=== PATIENT | male | born 1960 | race Caucasian/White ===

== ENCOUNTER 2016-04-14 19:36 | Emergency (ER) | payer OTHER, MEDICAID ==
[2016-04-14 19:44] VITALS: TEMP 98.4
[2016-04-14 19:59] LABS: COLOR YELLOW; LEUKOCYTE ESTERASE,URINE NEGATIVE (NEGATIVE); NITRITE,URINE NEGATIVE (NEGATIVE)
--- NOTE | 2016-04-14 20:14 | EDPHY ---
H & P Time Seen by Provider: 04/14/16 19:37 HPI/ROS: HPI Left lower back pain. Concerned about kidneys. 55-year-old male by ambulance. Patient has been seen in our emergency department multiple times for various complaints of the years. He presents from the [facility] complaining of left lower back pain and concern about his kidneys. No history of trauma or fall. No bowel or bladder incontinence. No history of cancer. No fever. No numbness or weakness in his lower extremities. No other red flags. ROS: Constitutional: No fever, no chills. No weakness. Eyes: No discharge. No changes in vision. ENT: No sore throat. No nasal congestion or rhinorrhea. Respiratory: No cough. No shortness of breath. Cardiac: No chest pain, no palpitations. Gastrointestinal: No abdominal pain, no vomiting, no diarrhea. Genitourinary: No hematuria. No dysuria or increased frequency with urination. Musculoskeletal: As above. No neck pain. No myalgias or arthralgias. Skin: No rashes. Neurological: No headache. No focal weakness or altered sensation. Past medical history: COPD, hepatitis-C, PTSD, bipolar, history of heroin abuse. Social history: Homeless. Smoker. Substance abuse. Alcohol abuse. Physical Exam: General Appearance: Alert, no distress. This patient is responding to questions appropriately and in full sentences. This patient appears well- hydrated and well-nourished. Eyes: Pupils equal and round no pallor or injection. No lid edema, erythema or injection. Back exam: No midline thoracic, lumbar, sacral tenderness on palpation. He has vague left-sided sacroiliac tenderness on palpation. No soft tissue changes. Negative same side and straight size leg raise test. He is neurologically intact in all dermatomes of the bilateral lower extremities. He is vascularly intact in his bilateral lower extremities. Gastrointestinal: Abdomen is soft and nontender, no masses, bowel sounds normal. No focal tenderness at McBurney's point. No Rome sign. Neurological: Motor sensory function is grossly intact. Cranial nerves are normal. Gait is normal. Skin: Warm and dry, no rashes. Musculoskeletal: Neck is supple and nontender. Extremities are symmetrical. All joints range without pain or impingement. Psychiatric: No agitation. No depression. Database: EKG: Imaging: Procedures: Emergency department course: After my evaluation, the patient was medically cleared for discharge. Left lower back pain with no red flags. He has a normal creatinine from in December of 2015. Urinalysis was unremarkable. Follow-up and return to emergency department precautions discussed with him. All of his questions were answered. He was discharged in good condition. Differential Diagnosis: The differential diagnosis on this patient includes but is not limited to lumbar sacral strain. Urinary tract infection, pyelonephritis, nephrolithiasis , epidural compression syndrome, traumatic spinal injury, cauda equina syndrome unlikely. This represents a partial list of diagnoses considered. These considerations are based on history, physical exam, past history and reassessment Smoking Status: Current every day smoker Constitutional: Initial Vital Signs Temperature (C) 36.9 C 04/14/16 19:38 Heart Rate 118 H 04/14/16 19:38 Respiratory Rate 20 04/14/16 19:38 Blood Pressure 123/90 H 04/14/16 19:38 O2 Sat (%) 91 L 04/14/16 19:38 O2 Delivery Mode Room Air Allergies/Adverse Reactions: penicillin V potassium [From Pen-Vee K] Allergy (Mild, Verified 04/14/16 19:44) GI chlorpromazine HCl [From Thorazine] Allergy (Verified 04/14/16 19:44) haloperidol [From Haldol] Allergy (Verified 04/14/16 19:44) haloperidol lactate [From Haldol] Allergy (Verified 04/14/16 19:44) Penicillins Allergy (Verified 04/14/16 19:44) Home Medications: Medication Instructions Recorded clonazePAM [Klonopin (RX)] 0.5 mg PO 11/16/12 Trihexyphenidyl HCl 2 mg PO DAILY 09/19/14 [Trihexyphenidyl 2MG (RX)] PARoxetine HCL [Paxil] 30 mg PO DAILY 10/09/14 Seroquel 02/23/16 Medical Decision Making - Data Points Laboratory Results: 04/14/16 19:50 Urine Color Pending Urine Appearance Pending Urine pH Pending Ur Specific [place] Pending Urine Protein Pending Urine Ketones Pending Urine Blood Pending Urine Nitrate Pending Urine Bilirubin Pending Urine Urobilinogen Pending Ur Leukocyte Esterase Pending Ur Culture Indicated? Pending Urine Glucose Pending Departure - Departure Disposition: Home, Routine, Self-Care Clinical Impression: Low back pain Condition: Good Instructions: Low Back Strain (ED) Additional Instructions: Read and follow provided instructions. Follow-up with your primary care physician at [facility] in 1-2 days for re -evaluation. Ibuprofen dosin mg every 6 hours with meals for the next 3 days only. Return to the emergency department for worsening pain, bowel or bladder incontinence, numbness or weakness in her lower extremities, fever or other serious concerns. Referrals: [facility] [Outside] - As per Instructions
[2016-04-14 20:40] VITALS: BP 100/63; PULSE 100; RESP 16; O2SAT 93
== END 2016-04-14 20:39 | disposition home or self-care (01) ==
LOC: EDUNIT#
DX: M54.5 Low back pain (principal); J44.9 Chronic obstructive pulmonary disease, unspecified; F17.200 Nicotine dependence, unspecified, uncomplicated

== ENCOUNTER 2016-04-22 21:33 | Emergency (ER) | payer OTHER, MEDICAID ==
[2016-04-22 21:43] VITALS: TEMP 97.9
--- NOTE | 2016-04-22 21:47 | CPEKG ---
Heart Rate: 76 RR Interval: 789 P-R Interval: 172 QRSD Interval: 130 QT Interval: 408 QTC Interval: 459 P [place]: 53 QRS [place]: 96 T Wave [place]: 53 EKG Severity - ABNORMAL ECG - EKG Impression: SINUS RHYTHM EKG Impression: RBBB AND LPFB Electronically Signed By: Jacqui Grider 22-Apr-2016 23:23:37
--- NOTE | 2016-04-22 22:15 | EDPHY ---
H & P Time Seen by Provider: 04/22/16 22:11 HPI/ROS: CHIEF COMPLAINT: Chest pain HISTORY OF PRESENT ILLNESS: This patient is a homeless 55 year old well-known to this facility who presents to the Emergency Department by EMS complaining of two 5-second episodes of centralized chest paint this morning and this evening. He describes the pain as sharp and subsiding quickly without radiation. Upon arrival, he has no chest discomfort. He denies nausea, vomiting, diaphoresis, or additional complaints. He has been seen frequently in this facility for similar complaints over the past few months. Medical history includes bipolar disorder. REVIEW OF SYSTEMS: Constitutional: No fever, no chills Eyes: No visual changes ENT: No sore throat Respiratory: No cough, no shortness of breath Cardiac: +chest pain Gastrointestinal: No nausea, no vomiting, no abdominal pain Genitourinary: No hematuria, no dysuria Musculoskeletal: No leg pain or swelling Skin: No rash Neurological: No headache, no numbness, no weakness Psychiatric: No depression Past Medical/Surgical History: Bipolar disorder. Social History: Smoker, homeless. Smoking Status: Current every day smoker Physical Exam: General Appearance: Alert, no distress Eyes: Pupils equal and round, no conjunctival pallor or injection ENT, Mouth: Mucous membranes moist Neck: Normal inspection Respiratory: Lungs are clear to auscultation Cardiovascular: Regular rate and rhythm Gastrointestinal: Abdomen is soft and non- tender Neurological: A&O, nonfocal, normal gait Skin: Warm and dry, no rash Extremities: Nontender, no pedal edema Psychiatric: Mood and affect normal Constitutional: Initial Vital Signs Temperature (C) 36.6 C 04/22/16 21:41 Heart Rate 78 04/22/16 21:41 Respiratory Rate 18 04/22/16 21:41 Blood Pressure 119/75 04/22/16 21:41 O2 Sat (%) 92 04/22/16 21:41 O2 Delivery Mode Room Air Allergies/Adverse Reactions: penicillin V potassium [From Pen-Vee K] Allergy (Mild, Verified 04/14/16 19:44) GI chlorpromazine HCl [From Thorazine] Allergy (Verified 04/14/16 19:44) haloperidol [From Haldol] Allergy (Verified 04/14/16 19:44) haloperidol lactate [From Haldol] Allergy (Verified 04/14/16 19:44) Penicillins Allergy (Verified 04/14/16 19:44) Home Medications: Medication Instructions Recorded clonazePAM [Klonopin (RX)] 0.5 mg PO 11/16/12 Trihexyphenidyl HCl 2 mg PO DAILY 09/19/14 [Trihexyphenidyl 2MG (RX)] PARoxetine HCL [Paxil] 30 mg PO DAILY 10/09/14 Seroquel 02/23/16 Medical Decision Making - Diagnostics EKG Interpretation: EKG interpreted by me reveals normal sinus rhythm, rate 76, RBBB and LPFB; no ischemic changes. ED Course/Re-evaluation: The patient declined an IV upon admission. Will proceed with EKG. EKG reveals no ischemic changes. Given the atypical and very brief chest pain, I do not suspect acute coronary syndrome. I discussed EKG results with the patient and plan to discharge home. He is agreeable to this and understands return to the ED precautions. He will be given the information for [facility] for follow-up. Differential Diagnosis: Differential diagnosis includes though it is not limited to pneumonia, pneumothorax, pulmonary embolism, aortic dissection, pericarditis, acute coronary syndrome. Departure - Departure Disposition: Home, Routine, Self-Care Clinical Impression: Atypical chest pain Condition: Good Instructions: Chest Pain (ED) Additional Instructions: Return to the Emergency Department if you experience repeat episodes of chest pain, if your pain radiates to your arm neck or jaw, if you experience excessive sweating or heart palpitations, or other worsening of condition. Referrals: [facility] [Outside] - As per Instructions Report Scribed for: Jacqui Grider Report Scribed by: Karly Beasley Date of Report: 04/22/16 Time of Report: 22:13 Physician Review and Approval Statement: 04/22/16 22:13 Portions of this note were transcribed by a director medical surgical. I personally performed a history, physical exam, medical decision making, and confirmed accuracy of information the transcribed note.
[2016-04-22 22:56] VITALS: BP 115/74; PULSE 74; RESP 16; O2SAT 95
== END 2016-04-22 22:56 | disposition home or self-care (01) ==
LOC: EDUNIT#
DX: R07.89 Other chest pain (principal); F17.200 Nicotine dependence, unspecified, uncomplicated

== ENCOUNTER 2016-05-01 14:20 | Emergency (ER) | payer OTHER, MEDICAID ==
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
[2016-05-01] MEDS ORDERED: IBUPROFEN 600 MG TAB PO ONE (15:31)
[2016-05-01 15:52] VITALS: BP 138/69; PULSE 89; RESP 18; TEMP 97.7; O2SAT 96
== END 2016-05-01 15:48 | disposition home or self-care (01) ==
DX: S83.92XA Sprain of unspecified site of left knee, initial encounter (principal); S83.91XA Sprain of unspecified site of right knee, initial encounter; F17.200 Nicotine dependence, unspecified, uncomplicated; Z86.73 Personal history of transient ischemic attack (TIA), and cerebral infarction without residual deficits; Y09 Assault by unspecified means

== ENCOUNTER 2016-08-17 01:42 | Emergency (ER) | payer OTHER, MEDICAID ==
[2016-08-17 01:48] VITALS: BP 115/84; PULSE 99; RESP 18; TEMP 97.3; O2SAT 94
[2016-08-17] MEDS ORDERED: IBUPROFEN 200 MG TAB PO ONE (03:50)
--- NOTE | 2016-08-17 20:51 | EDPHY ---
H & P Stated Complaint: knee pain d/t arthritis- chronic problem HPI/ROS: HPI CHIEF COMPLAINT: Bilateral chronic knee pain HISTORY OF PRESENT ILLNESS: This patient very pleasant year old man, presents emergency room by private vehicle he is homeless, he has chronic knee pain and osteoarthritis. Patient states that he has been walking this evening and he has arthritis is flaring up. Patient states that he needs pain medicine for his chronic knee pain. No new trauma. Past Medical History: Osteoarthritis, rheumatoid arthritis, chronic pain Past Surgical History: No recent surgical history Social History: smokes tobacco, homeless, denies drugs or alcohol Family History: noncontributory ROS REVIEW OF SYSTEMS: A comprehensive 10 point review of systems is otherwise negative aside from elements mentioned in the history of present illness. Exam Constitutional triage nursing summary reviewed, vital signs reviewed, awake/ alert. Eyes normal conjunctivae and sclera, EOMI, PERRLA. HENT normal inspection, atraumatic, moist mucus membranes, no epistaxis, neck supple/ no meningismus, no raccoon eyes. Respiratory clear to auscultation bilaterally, normal breath sounds, no respiratory distress, no wheezing. Cardiovascular rate normal, regular rhythm, no murmur, no edema, distal pulses normal. Gastrointestinal soft, non-tender, no rebound, no guarding, normal bowel sounds, no distension, no pulsatile mass. Genitourinary no CVA tenderness. Musculoskeletal bilateral knee exam mild swelling, no warmth, no redness, full range of motion, able to ambulate without difficulty, no midline vertebral tenderness, full range of motion, no calf swelling, no tenderness of extremities , no meningismus, good pulses, neurovascularly intact. Skin pink, warm, & dry, no rash, skin atraumatic. Neurologic awake, alert and oriented x 3, AAOx3, moves all 4 extremities equally, motor intact, sensory intact, CN II-XII intact, normal cerebellar, normal vision, normal speech. Psychiatric normal mood/affect. Heme/Lymph/Immune no lymphadenopathy. Differential Diagnosis: includes but is not limited to in a particular order, chronic knee pain, osteoarthritis, overuse injury. Medical Decision Making: Plan for this patient has no new acute trauma. No indication for imaging. Will provide ice packs. Ibuprofen 800 mg. Primary care doctor referral. He is agreeable this plan. Re-evaluation: Patient received ice packs, ibuprofen 800 mg. He is feeling better. No indication for acute imaging here in emergency room. No new trauma. Chronic knee pain. Recommend follow up with his primary care doctor he understands. Source: Patient - Personal History Current Tetanus/Diphtheria Vaccine: Yes Current Tetanus Diphtheria and Acellular Pertussis (TDAP): Yes Tetanus Vaccine Date: October 2015 - Medical/Surgical History Hx Asthma: No Hx Chronic Respiratory Disease: Yes Hx Diabetes: No Hx Cardiac Disease: Yes Hx Renal Disease: No Hx Cirrhosis: No Hx Alcoholism: No Hx HIV/AIDS: No Hx Splenectomy or Spleen Trauma: No Other PMH: "respiratory disease from smoking", hep C, CVA , "mild heart attack" at the time of stroke, arthritis, PTSD, BIPOLAR, hx heroin use and carotid aneurysm - Social History Smoking Status: Current every day smoker Constitutional: Initial Vital Signs Temperature (C) 36.3 C 08/17/16 01:45 Heart Rate 99 08/17/16 01:45 Respiratory Rate 18 08/17/16 01:45 Blood Pressure 115/84 H 08/17/16 01:45 O2 Sat (%) 94 08/17/16 01:45 O2 Delivery Mode Room Air Allergies/Adverse Reactions: penicillin V potassium [From Pen-Vee K] Allergy (Mild, Verified 08/17/16 01:48) GI chlorpromazine HCl [From Thorazine] Allergy (Verified 08/17/16 01:48) haloperidol [From Haldol] Allergy (Verified 08/17/16 01:48) haloperidol lactate [From Haldol] Allergy (Verified 08/17/16 01:48) Penicillins Allergy (Verified 08/17/16 01:48) Home Medications: Medication Instructions Recorded clonazePAM [Klonopin (RX)] 0.5 mg PO 11/16/12 Trihexyphenidyl HCl 2 mg PO DAILY 09/19/14 [Trihexyphenidyl 2MG (RX)] PARoxetine HCL [Paxil] 30 mg PO DAILY 10/09/14 Seroquel 02/23/16 Departure - Departure Disposition: Home, Routine, Self-Care Clinical Impression: Chronic pain syndrome Osteoarthritis Qualifiers: Osteoarthritis location: knee Osteoarthritis type: primary Laterality: bilateral Qualified Code(s): M17.0 - Bilateral primary osteoarthritis of knee Condition: Good Instructions: Chronic Pain (ED), Knee Pain (ED), Arthralgia (ED) Referrals: [facility] [Other] - As per Instructions
== END 2016-08-17 03:50 | disposition home or self-care (01) ==
DX: M17.0 Bilateral primary osteoarthritis of knee (principal); F17.200 Nicotine dependence, unspecified, uncomplicated; G89.4 Chronic pain syndrome; Z86.73 Personal history of transient ischemic attack (TIA), and cerebral infarction without residual deficits

== ENCOUNTER 2016-09-03 18:50 | Emergency (ER) | payer OTHER ==
--- NOTE | 2016-09-03 19:08 | EDPHY ---
H & P Time Seen by Provider: 09/03/16 19:05 HPI/ROS: CHIEF COMPLAINT: "I Need help with my meds and I need help with sleep" HISTORY OF PRESENT ILLNESS: 55-year-old homeless male history of schizoaffective disorder arrives via ambulance stating that he needs help with his medications, he is having difficulty sleeping, would like to discuss his medication dosing. He denies suicidal homicidal ideation. Denies self-injury. Denies hallucination. Denies complaints of physical pain. REVIEW OF SYSTEMS: A ten point review of systems was performed and is negative with the exception of the items mentioned in the HPI PAST MEDICAL & SURGICAL HISTORY: Schizoaffective disorder SOCIAL HISTORY: homeless. Denies alcohol or drug use PHYSICAL EXAM (Prior to examination, patient consented to physical exam, hands were washed and my usual and customary physical exam procedures followed) 1) GENERAL: Well kept, well-nourished, alert and oriented. Appears to be in no acute distress. 2) HEAD: Normocephalic, atraumatic 3) HEENT: Pupils equal, round, reactive to light bilaterally. 4) NECK: Full range of motion, no meningeal signs. 5) LUNGS: Clear auscultation bilaterally. 6) HEART: Regular rate and rhythm, no murmur, no heave, no gallop. 7) ABDOMEN: No guarding, no rebound, no focal tenderness, 8) MUSCULOSKELETAL: No peripheral edema or discoloration. 9) BACK: Nno visual or palpable abnormality. 10) SKIN: No rash, no petechiae. 11) Psychiatric: Patient is oriented X 3, there is no agitation , answering questions appropriately calm cooperative. DIFFERENTIAL DIAGNOSIS: In no particular include but limited to medication request, schizoaffective disorder, psychosis [ Smoking Status: Current every day smoker Allergies/Adverse Reactions: penicillin V potassium [From Pen-Vee K] Allergy (Mild, Verified 08/17/16 01:48) GI chlorpromazine HCl [From Thorazine] Allergy (Verified 08/17/16 01:48) haloperidol [From Haldol] Allergy (Verified 08/17/16 01:48) haloperidol lactate [From Haldol] Allergy (Verified 08/17/16 01:48) Penicillins Allergy (Verified 08/17/16 01:48) Home Medications: Medication Instructions Recorded clonazePAM [Klonopin (RX)] 0.5 mg PO 11/16/12 Trihexyphenidyl HCl 2 mg PO DAILY 09/19/14 [Trihexyphenidyl 2MG (RX)] PARoxetine HCL [Paxil] 30 mg PO DAILY 10/09/14 Seroquel 02/23/16 MDM/Departure - [facility] ED Course/Re-evaluation: This patient does not meet criteria for mental health hold at this time. He is requesting assistance with medication assistance with sleep. He arrives by ambulance. I offered to send him to the walk-in clinic which he is agreeable with. - Depart Disposition: Home, Routine, Self-Care Clinical Impression: Schizoaffective disorder Qualifiers: Schizoaffective disorder type: unspecified Qualified Code(s): F25.9 - Schizoaffective disorder, unspecified Condition: Good Instructions: Schizoaffective Disorder (ED) Additional Instructions: Call 911 if you develop thoughts of hurting yourself or others or any other symptoms that concern you Referrals: [facility] [Clinic] - 1-2 days without fail
[2016-09-03 19:10] VITALS: BP 108/69; PULSE 70; RESP 16; TEMP 98.2; O2SAT 91
== END 2016-09-03 19:35 | disposition home or self-care (01) ==
LOC: EDUNIT#
DX: F25.9 Schizoaffective disorder, unspecified (principal); F17.200 Nicotine dependence, unspecified, uncomplicated

== ENCOUNTER 2016-09-05 21:51 | Emergency (ER) | payer OTHER, MEDICAID ==
[2016-09-05 21:58] VITALS: RESP 16
--- NOTE | 2016-09-05 22:31 | CPEKG ---
Heart Rate: 57 RR Interval: 1053 P-R Interval: 192 QRSD Interval: 130 QT Interval: 444 QTC Interval: 433 P [place]: 57 QRS [place]: 92 T Wave [place]: 45 EKG Severity - ABNORMAL ECG - EKG Impression: SINUS RHYTHM EKG Impression: RBBB AND LPFB Electronically Signed By: Halle Li 05-Sep-2016 22:43:42
--- NOTE | 2016-09-05 22:48 | EDPHY ---
H & P Stated Complaint: CP Time Seen by Provider: 09/05/16 22:27 HPI/ROS: HPI The patient presents with chest pain which began about 9 hours ago which is intermittent, lasting for 5 seconds at a time and feels like a sharp pain which does not radiate which began while he was smoking a cigarette. He is also complaining of right knee pain which is achy and constant. He says he has rheumatoid arthritis and osteoarthritis in that knee. He is also complaining that he cannot sleep and is out of his Seroquel.. REVIEW OF SYSTEMS Constitutional: No fever, no chills. Eyes: No discharge. ENT: No sore throat. Cardiovascular: Positive for chest pain Respiratory: No cough, no shortness of breath. Gastrointestinal: No abdominal pain, no vomiting. Genitourinary: No hematuria. Musculoskeletal: No back pain. Skin: No rashes. Neurological: No headache. PMHx: Schizoaffective disorder Soc Hx: Homelessness, smokes tobacco PHYSICAL General Appearance: Alert, no distress Eyes: Pupils equal and round no pallor or injection ENT, Mouth: Mucous membranes moist Respiratory: There are no retractions, lungs are clear to auscultation Cardiovascular: Regular rate and rhythm Gastrointestinal: Abdomen is soft and non-tender, no masses, bowel sounds normal Neurological: A&O, moves all extremities Skin: Warm and dry, no rashes Musculoskeletal: Neck is supple non tender Extremities: symmetrical, full range of motion Psychiatric: Patient is oriented X 3, there is no agitation Source: Patient Exam Limitations: No limitations - Personal History Current Tetanus/Diphtheria Vaccine: Yes Current Tetanus Diphtheria and Acellular Pertussis (TDAP): Yes Tetanus Vaccine Date: October 2015 - Medical/Surgical History Hx Asthma: No Hx Chronic Respiratory Disease: Yes Hx Diabetes: No Hx Cardiac Disease: Yes Hx Renal Disease: No Hx Cirrhosis: No Hx Alcoholism: No Hx HIV/AIDS: No Hx Splenectomy or Spleen Trauma: No Other PMH: "respiratory disease from smoking", hep C, CVA , "mild heart attack" at the time of stroke, arthritis, PTSD, BIPOLAR, hx heroin use and carotid aneurysm - Social History Smoking Status: Current every day smoker Constitutional: Initial Vital Signs Heart Rate 59 L 09/05/16 21:56 Respiratory Rate 16 09/05/16 21:56 Blood Pressure 112/76 09/05/16 21:56 O2 Sat (%) 96 09/05/16 21:56 O2 Delivery Mode Room Air Allergies/Adverse Reactions: penicillin V potassium [From Pen-Vee K] Allergy (Mild, Verified 09/05/16 21:54) GI chlorpromazine HCl [From Thorazine] Allergy (Verified 09/05/16 21:54) haloperidol [From Haldol] Allergy (Verified 09/05/16 21:54) haloperidol lactate [From Haldol] Allergy (Verified 09/05/16 21:54) Penicillins Allergy (Verified 09/05/16 21:54) Home Medications: Medication Instructions Recorded clonazePAM [Klonopin (RX)] 0.5 mg PO 11/16/12 Trihexyphenidyl HCl 2 mg PO DAILY 09/19/14 [Trihexyphenidyl 2MG (RX)] Seroquel 02/23/16 Meloxicam 09/05/16 Medical Decision Making - Diagnostics EKG Interpretation: EKG: Complete interpretation has been separately recorded in the [employer] archive. 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 Differential Diagnosis: This is a 55-year-old man with frequent ER visits, history of schizoaffective disorder, homelessness, recurrent chest pain who presents with an episode of chest pain, typical to his prior episodes. He has had an EKG which is unchanged from prior. He refuses chest x-ray or lab work. I explained that we cannot evaluate him fully for heart attack and other serious pathology, however he accepts this risk. He would like something to help him sleep but is fearful that he will fall asleep while in the emergency room so would like to be discharged. Differential diagnosis includes ACS, costochondritis, GERD, anxiety, musculoskeletal pain. Departure - Departure Disposition: Home, Routine, Self-Care Clinical Impression: Knee pain, bilateral Chest pain Qualifiers: Chest pain type: unspecified Qualified Code(s): R07.9 - Chest pain, unspecified Insomnia Qualifiers: Insomnia type: unspecified Qualified Code(s): G47.00 - Insomnia, unspecified Condition: Good Instructions: Chest Pain (ED) Additional Instructions: Please follow-up with [facility] in the next 1-2 days. Referrals: [facility],. [Clinic] - As per Instructions
[2016-09-05 22:57] VITALS: BP 118/74; PULSE 58; O2SAT 96
== END 2016-09-05 22:57 | disposition home or self-care (01) ==
DX: R07.9 Chest pain, unspecified (principal); G47.00 Insomnia, unspecified; M25.561 Pain in right knee; M25.562 Pain in left knee; F17.200 Nicotine dependence, unspecified, uncomplicated; Z86.73 Personal history of transient ischemic attack (TIA), and cerebral infarction without residual deficits

== ENCOUNTER 2016-09-08 11:30 | Emergency (ER) | payer OTHER ==
[2016-09-08 11:37] VITALS: BP 121/65; PULSE 66; RESP 16; TEMP 97.5; O2SAT 96
--- NOTE | 2016-09-08 14:39 | EDPHY ---
H & P Stated Complaint: knee pain, bottom problem Time Seen by Provider: 09/08/16 14:39 - Personal History Current Tetanus/Diphtheria Vaccine: Yes Current Tetanus Diphtheria and Acellular Pertussis (TDAP): Yes Tetanus Vaccine Date: October 2015 - Medical/Surgical History Hx Asthma: No Hx Chronic Respiratory Disease: Yes Hx Diabetes: No Hx Cardiac Disease: Yes Hx Renal Disease: No Hx Cirrhosis: No Hx Alcoholism: No Hx HIV/AIDS: No Hx Splenectomy or Spleen Trauma: No Other PMH: "respiratory disease from smoking", hep C, CVA , "mild heart attack" at the time of stroke, arthritis, PTSD, BIPOLAR, hx heroin use and carotid aneurysm - Social History Smoking Status: Current every day smoker Constitutional: Initial Vital Signs Temperature (C) 36.4 C 09/08/16 11:35 Heart Rate 66 09/08/16 11:35 Respiratory Rate 16 09/08/16 11:35 Blood Pressure 121/65 H 09/08/16 11:35 O2 Sat (%) 96 09/08/16 11:35 Allergies/Adverse Reactions: penicillin V potassium [From Pen-Vee K] Allergy (Mild, Verified 09/05/16 21:54) GI chlorpromazine HCl [From Thorazine] Allergy (Verified 09/05/16 21:54) haloperidol [From Haldol] Allergy (Verified 09/05/16 21:54) haloperidol lactate [From Haldol] Allergy (Verified 09/05/16 21:54) Penicillins Allergy (Verified 09/05/16 21:54) Home Medications: Medication Instructions Recorded clonazePAM [Klonopin (RX)] 0.5 mg PO 11/16/12 Trihexyphenidyl HCl 2 mg PO DAILY 09/19/14 [Trihexyphenidyl 2MG (RX)] Seroquel 02/23/16 Meloxicam 09/05/16 Medical Decision Making ED Course/Re-evaluation: CHIEF COMPLAINT: Bilateral knee pain HISTORY OF PRESENT ILLNESS: This patient is a homeless 55-year-old male with history of schizoaffective disorder who presents to the Emergency Department for his 14th visit this year stating that he needs medicine to treat his hemorrhoid. He has no additional complaints. Denies abdominal pain, nausea, fever or chills. He states that he does not need mental health evaluation today. Denies intent to harm himself or others. REVIEW OF SYSTEMS: A 10 point review of systems was performed and is negative with the exception of the elements mentioned in the history of present illness. PHYSICAL EXAM: General Appearance: Alert, well hydrated, appropriate, and non-toxic appearing. Head: Atraumatic without scalp tenderness or obvious injury Eyes: Pupils equal, round, reactive to light and accommodation, EOMI, no trauma , no injection. Ears: Clear bilaterally, no perforation, normal landmarks Nose: Atraumatic, no rhinorrhea, clear. Throat: There is no erythema or exudates, no lesions, normal tonsils, mucus membranes moist. Neck: Supple, 2+ carotid upstroke, nontender, no lymphadenopathy. Respiratory: No retractions, no distress, no wheezes, and no accessory muscle use. Lungs are clear to auscultation bilaterally. Cardiovascular: Regular rate and rhythm, no murmurs, rubs, or gallops. Bilateral carotid, radial, dorsalis pedis, and posterior tibial pulses intact. Good capillary refill all extremities. Gastrointestinal: Abdomen is soft, nontender, non-distended, no masses, no rebound, no guarding, no peritoneal signs. Musculoskeletal: Normal active ROM of all extremities, atraumatic. Neurological: Alert, appropriate, and interactive. The patient has normal DTRs and non-focal cranial nerves, motor, sensory, and cerebellar exam. Skin: No rashes, good turgor, no nodules on palpation. Past medical history: Schizoaffective disorder Past surgical history: Denies Family history: Non-contributory Social history: Homeless DIFFERENTIAL DIAGNOSIS: The differential diagnosis for the patient's knee pain included but was not limited to fracture, ligamentous injury, contusion, muscular strain, and meniscus injury. MEDICAL DECISION MAKIN-year-old male with schizoaffective disorder well-known to this facility presents requesting something to treat his hemorrhoid. He has no additional complaints. He has a normal exam. He is not actively homicidal, suicidal, anxious, or paranoid. He does not need to be further evaluated for mental health concerns today. He will be given Preparation H for hemorrhoid treatment and will be discharged home in good condition. Departure - Departure Disposition: Home, Routine, Self-Care Clinical Impression: Hemorrhoid Qualifiers: Hemorrhoid type: unspecified Qualified Code(s): K64.9 - Unspecified hemorrhoids Condition: Good Instructions: Hemorrhoids (ED) Additional Instructions: 1. Apply Preparation H cream as directed until your symptoms subside. 2. Follow-up with a bucket turner for further evaluation if you do not improve in 3-5 days. 3. Return to the Emergency Department with serious concerns of uncontrollable vomiting, severe abdominal pain, blood in vomit or stool, high fever, or for other serious concerns. Referrals: Иван Meng MD [Medical Doctor] - As per Instructions Report Scribed for: Frederic Clemons Report Scribed by: Karly Beasley Date of Report: 09/08/16 Time of Report: 14:40
[2016-09-08] MEDS ORDERED: PREPARATION H 51 GM CRTUBE PR PRN (14:45)
== END 2016-09-08 15:39 | disposition home or self-care (01) ==
DX: K64.9 Unspecified hemorrhoids (principal); F17.200 Nicotine dependence, unspecified, uncomplicated; Z86.73 Personal history of transient ischemic attack (TIA), and cerebral infarction without residual deficits

== ENCOUNTER 2016-09-10 08:42 | Emergency (ER) | payer OTHER, MEDICAID ==
[2016-09-10 08:53] VITALS: BP 128/87; PULSE 64; RESP 16; TEMP 98.4; O2SAT 92
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
[2016-09-10] MEDS ORDERED: IBUPROFEN 600 MG TAB PO ONE (09:00)
== END 2016-09-10 11:03 | disposition home or self-care (01) ==
LOC: EDUNIT#
DX: M25.552 Pain in left hip (principal); F17.200 Nicotine dependence, unspecified, uncomplicated; Z86.73 Personal history of transient ischemic attack (TIA), and cerebral infarction without residual deficits

== ENCOUNTER 2016-09-10 19:40 | Emergency (ER) | payer OTHER, MEDICAID ==
--- NOTE | 2016-09-10 19:46 | EDPHY ---
H & P Source: Patient, EMS - Personal History Tetanus Vaccine Date: October 2015 - Medical/Surgical History Hx Asthma: No Hx Chronic Respiratory Disease: Yes Hx Diabetes: No Hx Cardiac Disease: Yes Hx Renal Disease: No Hx Cirrhosis: No Hx Alcoholism: No Hx HIV/AIDS: No Hx Splenectomy or Spleen Trauma: No Other PMH: "respiratory disease from smoking", hep C, CVA , "mild heart attack" at the time of stroke, arthritis, PTSD, BIPOLAR, hx heroin use and carotid aneurysm - Social History Smoking Status: Current every day smoker HPI/ROS: HPI CHIEF COMPLAINT: Gravely disable, M1 hold HISTORY OF PRESENT ILLNESS: This patient 55-year-old male homeless, significant past medical history major depressive disorder, PTSD, presents emergency room by EMS after he [facility]. During evaluation they found him to be gravely disabled and somewhat disorganized speech. They thought he would benefit from a mental health evaluation. Brought to emergency room by EMS. He is, cooperative. He is requesting a mental health evaluation. He states he does not think is gravely disabled. He does suffer from depression. And PTSD. Patient tells me he is compliant with his medications. Past Medical History: PTSD, major depressive disorder, schizophrenia, chronic pain, pneumonia Past Surgical History: Denies recent surgical history Social History: Homeless, denies daily use of alcohol, drugs, tobacco Family History: Noncontributory ROS REVIEW OF SYSTEMS: A comprehensive 10 point review of systems is otherwise negative aside from elements mentioned in the history of present illness. Exam Constitutional calm, cooperative unkept, triage nursing summary reviewed, vital signs reviewed, awake/alert. Eyes normal conjunctivae and sclera, EOMI, PERRLA. HENT normal inspection, atraumatic, moist mucus membranes, no epistaxis, neck supple/ no meningismus, no raccoon eyes. Respiratory clear to auscultation bilaterally, normal breath sounds, no respiratory distress, no wheezing. Cardiovascular rate normal, regular rhythm, no murmur, no edema, distal pulses normal. Gastrointestinal soft, non-tender, no rebound, no guarding, normal bowel sounds, no distension, no pulsatile mass. Genitourinary no CVA tenderness. Musculoskeletal no midline vertebral tenderness, full range of motion, no calf swelling, no tenderness of extremities, no meningismus, good pulses, neurovascularly intact. Skin pink, warm, & dry, no rash, skin atraumatic. Neurologic awake, alert and oriented x 3, AAOx3, moves all 4 extremities equally, motor intact, sensory intact, CN II-XII intact, normal cerebellar, normal vision, normal speech. Psychiatric normal mood/affect. Heme/Lymph/Immune no lymphadenopathy. Differential Diagnosis: Includes but is not limited to in a particular, gravely disabled, psychosis, major depressive disorder, mood disorder, PTSD Medical Decision Making: Plan for this patient blood draw for medical clearance , mental evaluation. He is on M1 hold. Re-evaluation: (Renzo Reyes) Constitutional: Initial Vital Signs Temperature (C) 36.7 C 09/10/16 19:53 Heart Rate 68 09/10/16 19:53 Respiratory Rate 18 09/10/16 19:53 Blood Pressure 112/74 09/10/16 19:53 O2 Sat (%) 93 09/10/16 19:53 O2 Delivery Mode Room Air Allergies/Adverse Reactions: penicillin V potassium [From Pen-Vee K] Allergy (Mild, Verified 09/05/16 21:54) GI chlorpromazine HCl [From Thorazine] Allergy (Verified 09/05/16 21:54) haloperidol [From Haldol] Allergy (Verified 09/05/16 21:54) haloperidol lactate [From Haldol] Allergy (Verified 09/05/16 21:54) Penicillins Allergy (Verified 09/05/16 21:54) Home Medications: Medication Instructions Recorded clonazePAM [Klonopin (RX)] 0.5 mg PO 11/16/12 Trihexyphenidyl HCl 2 mg PO DAILY 09/19/14 [Trihexyphenidyl 2MG (RX)] Seroquel 02/23/16 Meloxicam 09/05/16 Ambien 09/10/16 Medical Decision Making ED Course/Re-evaluation: 2043: The patient is signed out to me at change of shift. I reviewed the case with Dr. Reyes. At the time of sign out the patient is stable. 2325: Patient is signed out to Dr. Li at change of shift. (Jackeline Franklin) Other Provider: I assumed care of the patient at 7 o'clock in the morning. The patient remained stable throughout my stay. The patient has been accepted by Dr. Pardo at [facility] at 0900. I have filled out the EMTALA transfer form. (Darren Lynn) - Data Points Laboratory Results: Laboratory Results 09/10/16 19:50 09/10/16 19:50 09/10/16 20:30 Urine Opiates Screen NEGATIVE (NEGATIVE) Urine Barbiturates NEGATIVE (NEGATIVE) Ur Phencyclidine Scrn NEGATIVE (NEGATIVE) Ur Amphetamine Screen NEGATIVE (NEGATIVE) U Benzodiazepines Scrn NEGATIVE (NEGATIVE) Urine Cocaine Screen NEGATIVE (NEGATIVE) U Marijuana (THC) Screen NON-NEGATIVE H (NEGATIVE) Medications Given: Discontinued Medications Clonazepam (Klonopin) 0.5 mg PO EDNOW ONE Stop: 09/10/16 20:38 Last Admin: 09/10/16 20:40 Dose: 0.5 mg Departure - Departure Disposition: Other Psych, Not [facility] Clinical Impression: Schizophrenia Qualifiers: Schizophrenia type: other Qualified Code(s): F20.89 - Other schizophrenia Condition: Fair Referrals: Patient,NotPresent [Unknown] - As per Instructions
[2016-09-10 19:58] LABS: % IMMATURE GRANULYOCYTES 0.2 % (0.0-1.1); ABSOLUTE IMMATURE GRANULOCYTES 0.01 10^3/uL (0.00-0.10); ADD DIFF? NO; ADD MORPH? NO; ADD SCAN? NO; ATYPICAL LYMPHOCYTE FLAG 10 (0-99); FRAGMENT RBC FLAG 0 (0-99); HEMATOCRIT 45.3 % (40.0-51.0); HEMOGLOBIN 15.6 g/dL (13.7-17.5); LEFT SHIFT FLG 0 (0-99); LIPEMIA HEMOLYSIS FLAG 90 (0-99); MEAN CELL HEMOGLOBIN 29.4 pg (27.9-34.1); MEAN CELL HEMOGLOBIN CONCENTR. 34.4 g/dL (32.4-36.7); MEAN CELL VOLUME 85.5 fL (81.5-99.8); MEAN PLATELET VOLUME 9.4 fL (8.7-11.7); PLATELET CLUMPS FLAG 0 (0-99); PLATELET COUNT 220 10^3/uL (150-400); RED CELL DISTRIBUTION WIDTH 13.3 % (11.5-15.2)
[2016-09-10 20:23] LABS: ANION GAP 8 mEq/L (8-16); CALCIUM 9.3 mg/dL (8.5-10.4); CARBON DIOXIDE 23 mEq/l (22-31); CHLORIDE 107 mEq/L (97-110); CREATININE 0.7 mg/dL (0.7-1.3); ETHANOL SERUM < 10 mg/dL (0-10); GLOMERULAR FILTRATION RATE > 60; GLUCOSE 126 mg/dL (70-100); POTASSIUM 3.8 mEq/L (3.5-5.2); SALICYLATE < 1.0 mg/dL (2.0-20.0); SODIUM 138 mEq/L (134-144)
[2016-09-10] MEDS ORDERED: clonazePAM 0.5 MG TAB PO ONE (20:37)
[2016-09-10 21:54] VITALS: RESP 16
[2016-09-11 09:44] VITALS: BP 178/88; PULSE 74; TEMP 98.2; O2SAT 94
== END 2016-09-11 11:34 ==
LOC: EDUNIT#
DX: F20.89 Other schizophrenia (principal); F17.200 Nicotine dependence, unspecified, uncomplicated; Z86.73 Personal history of transient ischemic attack (TIA), and cerebral infarction without residual deficits
CPT/HCPCS: 80305; G0480

== ENCOUNTER 2016-09-27 01:49 | Emergency (ER) | payer OTHER, MEDICAID ==
[2016-09-27 01:55] VITALS: BP 109/73; PULSE 70; RESP 16; TEMP 97.5; O2SAT 94
[2016-09-27] MEDS ORDERED: diphenhydrAMINE 25 MG CAP PO ONE ×2 (02:05→02:06)
--- NOTE | 2016-09-27 02:09 | EDPHY ---
H & P Stated Complaint: pt out of sleep meds and can't sleep Time Seen by Provider: 09/27/16 02:03 HPI/ROS: Chief Complaint: Difficulty sleeping, out of medication HPI: 55-year-old homeless male well known to this emergency department with chronic pain is presenting this morning stating he can't sleep because he is out of his medications. Patient states that he was at [facility] yesterday morning for evaluation and refills of his medications. They wanted to do blood tests on him. He refused and left and just was unable to get his prescriptions. He is requesting Klonopin which he would like to help him sleep. He denies any recent illness. No new fevers or chills. No numbness or weakness. No falls or recent injury. Otherwise is in his usual state health. He recently had admission to [facility]. Right now denies being suicidal or homicidal. Is oriented acting appropriately. ROS: 10 point Review of Systems is negative except as noted in the HPI. PMH: Chronic pain, homelessness, PTSD Social History: Homeless Family History: non-contributory Physical Exam: Gen: Awake, Alert, No Distress HEENT: Nose: no rhinorrhea Eyes: PERRLA, EOMI Mouth: Moist mucosa Neck: Supple, no JVD Chest: nontender, lungs clear to auscultation Heart: S1, S2 normal, no murmur Abd: Soft, non-tender, no guarding Back: no CVA tenderness, no midline tenderness Ext: no edema, non-tender Skin: no rash Neuro: CN II-XII intact, Sensation grossly intact, Strength 5/5 in bilateral upper and lower extremities - Personal History Tetanus Vaccine Date: October 2015 - Medical/Surgical History Hx Asthma: No Hx Chronic Respiratory Disease: Yes Hx Diabetes: No Hx Cardiac Disease: Yes Hx Renal Disease: No Hx Cirrhosis: No Hx Alcoholism: No Hx HIV/AIDS: No Hx Splenectomy or Spleen Trauma: No Other PMH: "respiratory disease from smoking", hep C, CVA , "mild heart attack" at the time of stroke, arthritis, PTSD, BIPOLAR, hx heroin use and carotid aneurysm - Social History Smoking Status: Former smoker Constitutional: Initial Vital Signs Temperature (C) 36.4 C 09/27/16 01:53 Heart Rate 70 09/27/16 01:53 Respiratory Rate 16 09/27/16 01:53 Blood Pressure 109/73 09/27/16 01:53 O2 Sat (%) 94 09/27/16 01:53 O2 Delivery Mode Room Air Allergies/Adverse Reactions: penicillin V potassium [From Pen-Vee K] Allergy (Mild, Verified 09/27/16 01:55) GI chlorpromazine HCl [From Thorazine] Allergy (Verified 09/27/16 01:55) haloperidol [From Haldol] Allergy (Verified 09/27/16 01:55) haloperidol lactate [From Haldol] Allergy (Verified 09/27/16 01:55) Penicillins Allergy (Verified 09/27/16 01:55) Home Medications: Medication Instructions Recorded clonazePAM [Klonopin (RX)] 0.5 mg PO 11/16/12 Trihexyphenidyl HCl 2 mg PO DAILY 09/19/14 [Trihexyphenidyl 2MG (RX)] Seroquel 02/23/16 Meloxicam 09/05/16 Ambien 09/10/16 Medical Decision Making ED Course/Re-evaluation: 55-year-old homeless male presenting complaining of difficulty sleeping because he does not have his medications. Is not his medications because he refused blood testing at [facility]. I have offered him some diphenhydramine to help him sleep but I have told him I will not be giving him any benzodiazepines today. Patient is to follow up with [facility] and have the testing done that they recommend. No evidence of acute medical process at this time. - Data Points Medications Given: Discontinued Medications Diphenhydramine HCl (Benadryl) 50 mg PO EDNOW ONE Stop: 09/27/16 02:07 Last Admin: 09/27/16 02:07 Dose: 50 mg Departure - Departure Disposition: Home, Routine, Self-Care Clinical Impression: Insomnia Condition: Good Instructions: Insomnia (ED) Additional Instructions: Follow up with her doctors at the [facility] in the next 2-3 days to have the testing done that they recommend. Referrals: [facility] [Other] - As per Instructions
== END 2016-09-27 02:14 | disposition home or self-care (01) ==
DX: G47.00 Insomnia, unspecified (principal); Z86.73 Personal history of transient ischemic attack (TIA), and cerebral infarction without residual deficits; Z87.891 Personal history of nicotine dependence

== ENCOUNTER 2016-09-29 15:17 | Inpatient (IN) | payer OTHER, MEDICAID ==
[~2016-09-29 15:17] MED LIST: TRIHEXYPHENIDYL HCL 5 MG TAB PO ONE
--- NOTE | 2016-09-29 15:23 | EDPHY ---
H & P Source: Patient, EMS - Personal History Tetanus Vaccine Date: October 2015 - Medical/Surgical History Hx Asthma: No Hx Chronic Respiratory Disease: Yes Hx Diabetes: No Hx Cardiac Disease: Yes Hx Renal Disease: No Hx Cirrhosis: No Hx Alcoholism: No Hx HIV/AIDS: No Hx Splenectomy or Spleen Trauma: No Other PMH: "respiratory disease from smoking", hep C, CVA , "mild heart attack" at the time of stroke, arthritis, PTSD, BIPOLAR, hx heroin use and carotid aneurysm - Social History Smoking Status: Former smoker HPI/ROS: HPI CHIEF COMPLAINT: Paranoid, tangential, acute psychosis HISTORY OF PRESENT ILLNESS: This patient 55-year-old male, significant past medical history paranoid schizophrenia, chronic pain, opiate dependence, nicotine dependence, homelessness, remote history of DVT, presents emergency room by EMS after he walked into a fire station acting around [facility]. Upon arrival to the emergency room the patient is 10 gentle, pressured speech, rapid speaking, not making sense. He denies any pain anywhere. Past Medical History: Paranoid schizophrenia, DVT, osteoarthritis, chronic pain Past Surgical History: Denies recent surgery Social History: Homeless, chronic opiate dependence, nicotine dependence, Family History: Noncontributory ROS REVIEW OF SYSTEMS: A comprehensive 10 point review of systems is otherwise negative aside from elements mentioned in the history of present illness. Exam Constitutional acute psychosis triage nursing summary reviewed, vital signs reviewed, awake/alert. Eyes normal conjunctivae and sclera, EOMI, PERRLA. HENT normal inspection, atraumatic, moist mucus membranes, no epistaxis, neck supple/ no meningismus, no raccoon eyes. Respiratory clear to auscultation bilaterally, normal breath sounds, no respiratory distress, no wheezing. Cardiovascular rate normal, regular rhythm, no murmur, no edema, distal pulses normal. Gastrointestinal soft, non-tender, no rebound, no guarding, normal bowel sounds, no distension, no pulsatile mass. Genitourinary no CVA tenderness. Musculoskeletal no midline vertebral tenderness, full range of motion, no calf swelling, no tenderness of extremities, no meningismus, good pulses, neurovascularly intact. Skin pink, warm, & dry, no rash, skin atraumatic. Neurologic awake, alert and oriented x 3, AAOx3, moves all 4 extremities equally, motor intact, sensory intact, CN II-XII intact, normal cerebellar, normal vision, normal speech. Psychiatric pressured speech, tangential, acute psychosis Heme/Lymph/Immune no lymphadenopathy. Differential Diagnosis: Includes but is not limited to in a particular order, acute psychosis, schizophrenia, drug intoxication Medical Decision Making: Plan for this patient blood work for medical clearance , patient need to be placed on M1 hold for acute psychosis being gravely disabled. Re-evaluation: 1544: This patient is placed on M1 hold at this time. 1556: Patient is now becoming aggressive with staff yelling screaming slamming doors. I have ordered him IM 10 mg Zyprexa. Patient positive for methamphetamine. This may be contributing to his acute psychosis. 9:M1 hold. Patient signed over to Dr. Li at 10:00 p.m. shift change. ( Renzo Reyes) Constitutional: Initial Vital Signs Temperature (C) 37.2 C 09/29/16 15:17 Heart Rate 103 H 09/29/16 15:17 Respiratory Rate 16 09/29/16 15:17 Blood Pressure 160/107 H 09/29/16 15:17 O2 Sat (%) 95 09/29/16 15:17 O2 Delivery Mode Room Air Allergies/Adverse Reactions: penicillin V potassium [From Pen-Vee K] Allergy (Mild, Verified 09/27/16 01:55) GI chlorpromazine HCl [From Thorazine] Allergy (Verified 09/27/16 01:55) haloperidol [From Haldol] Allergy (Verified 09/27/16 01:55) haloperidol lactate [From Haldol] Allergy (Verified 09/27/16 01:55) Penicillins Allergy (Verified 09/27/16 01:55) Home Medications: Medication Instructions Recorded clonazePAM [Klonopin (RX)] 0.5 mg PO 11/16/12 Trihexyphenidyl HCl 2 mg PO DAILY 09/19/14 [Trihexyphenidyl 2MG (RX)] Seroquel 02/23/16 Meloxicam 09/05/16 Ambien 09/10/16 Medical Decision Making Other Provider: 12:00 a.m.- I received sign-out on this patient from Dr. Reeys at approximately 11:00 p.m.. He has been stable throughout the last 1 hour. The patient has been accepted to [address] [place] [address] Pacheco[address] We plan to transfer him from the emergency room there. I have completed the EMTALA form. (Halle Li) - Data Points Laboratory Results: Laboratory Results 09/29/16 16:18 09/29/16 16:18 09/29/1617 09/29/16 16:18 16:18 16:10 WBC 11.13 10^3/uL H 10^3/uL (3.80-9.50) RBC 5.48 10^6/uL 10^6/uL (4.40-6.38) Hgb 15.9 g/dL g/dL (13.7-17.5) Hct 46.6 % % (40.0-51.0) MCV 85.0 fL fL (81.5-99.8) MCH 29.0 pg pg (27.9-34.1) MCHC 34.1 g/dL g/dL (32.4-36.7) RDW 12.8 % % (11.5-15.2) Plt Count 250 10^3/uL 10^3/uL (150-400) MPV 9.6 fL fL (8.7-11.7) Neut % (Auto) 80.9 % H % (39.3-74.2) Lymph % (Auto) 9.5 % L % (15.0-45.0) [place] % (Auto) 7.9 % % (4.5-13.0) Eos % (Auto) 0.6 % % (0.6-7.6) Baso % (Auto) 0.6 % % (0.3-1.7) Nucleat RBC Rel Count 0.0 % % (0.0-0.2) Absolute Neuts (auto) 8.99 10^3/uL H 10^3/uL (1.70-6.50) Absolute Lymphs (auto) 1.06 10^3/uL 10^3/uL (1.00-3.00) Absolute Monos (auto) 0.88 10^3/uL H 10^3/uL (0.30-0.80) Absolute Eos (auto) 0.07 10^3/uL 10^3/uL (0.03-0.40) Absolute Basos (auto) 0.07 10^3/uL 10^3/uL (0.02-0.10) Absolute Nucleated RBC 0.00 10^3/uL 10^3/uL (0-0.01) Immature Gran % 0.5 % % (0.0-1.1) Immature Gran # 0.06 10^3/uL 10^3/uL (0.00-0.10) Sodium 145 mEq/L H mEq/L (134-144) Potassium 4.2 mEq/L mEq/L (3.5-5.2) Chloride 108 mEq/L mEq/L (97-110) Carbon Dioxide 18 mEq/l L mEq/l (22-31) Anion Gap 19 mEq/L H mEq/L (8-16) BUN 25 mg/dL H mg/dL (7-23) Creatinine 1.5 mg/dL H mg/dL (0.7-1.3) Estimated GFR 49 Glucose 115 mg/dL H mg/dL (70-100) Calcium 10.4 mg/dL mg/dL (8.5-10.4) Salicylates < 1.0 mg/dL L mg/dL (2.0-20.0) Urine Opiates Screen NON-NEGATIVE H (NEGATIVE) Acetaminophen < 10 mcg/mL L mcg/mL (10.0-30.0) Urine Barbiturates NEGATIVE (NEGATIVE) Ur Phencyclidine Scrn NEGATIVE (NEGATIVE) Ur Amphetamine Screen NON-NEGATIVE H (NEGATIVE) U Benzodiazepines Scrn NEGATIVE (NEGATIVE) Urine Cocaine Screen NEGATIVE (NEGATIVE) U Marijuana (THC) Screen NON-NEGATIVE H (NEGATIVE) Ethyl Alcohol < 10 mg/dL mg/dL (0-10) Medications Given: Discontinued Medications Acetaminophen (Tylenol) 650 mg PO EDNOW ONE Stop: 09/29/16 20:03 Last Admin: 09/29/16 20:43 Dose: 650 mg Clonazepam (Klonopin) 1 mg PO EDNOW ONE Stop: 09/29/16 17:55 Last Admin: 09/29/16 18:01 Dose: 1 mg Sodium Chloride (Ns) 1,000 mls @ 0 mls/hr IV ONCE ONE PRN Reason: Wide Open Stop: 09/29/16 17:56 Last Admin: 09/29/16 18:18 Dose: Not Given Olanzapine (Olanzapine) 5 mg PO ONCE ONE Stop: 09/29/16 15:36 Last Admin: 09/29/16 16:05 Dose: Not Given Olanzapine (Zyprexa Im Injection) 10 mg IM EDNOW ONE Stop: 09/29/16 15:56 Last Admin: 09/29/16 16:05 Dose: 10 mg Quetiapine Fumarate (Seroquel) 300 mg PO ONCE ONE Stop: 09/29/16 20:03 Last Admin: 09/29/16 20:43 Dose: 300 mg Trihexyphenidyl HCl (Trihexyphenidyl Hcl) 5 mg PO EDNOW ONE Stop: 09/29/16 20:46 Last Admin: 09/29/16 20:43 Dose: 5 mg Zolpidem Tartrate (Ambien) 10 mg PO ONCE ONE Stop: 09/29/16 20:03 Last Admin: 09/29/16 20:43 Dose: 10 mg Departure - Departure Disposition: [facility] IP Clinical Impression: Acute psychosis Referrals: NONE *PRIMARY CARE P,. [Primary Care Provider] - As per Instructions
[2016-09-29] MEDS ORDERED: OLANZapine 5 MG TAB PO ONE (15:35)
[2016-09-29] MEDS ORDERED: OLANZapine 10 MG/2 ML VIAL IM ONE ×2 (15:55)
[2016-09-29 16:27] LABS: % IMMATURE GRANULYOCYTES 0.5 % (0.0-1.1); ABSOLUTE IMMATURE GRANULOCYTES 0.06 10^3/uL (0.00-0.10); ADD DIFF? NO; ADD MORPH? NO; ADD SCAN? NO; ATYPICAL LYMPHOCYTE FLAG 0 (0-99); FRAGMENT RBC FLAG 0 (0-99); HEMATOCRIT 46.6 % (40.0-51.0); HEMOGLOBIN 15.9 g/dL (13.7-17.5); LEFT SHIFT FLG 0 (0-99); LIPEMIA HEMOLYSIS FLAG 90 (0-99); MEAN CELL HEMOGLOBIN CONCENTR. 34.1 g/dL (32.4-36.7); MEAN PLATELET VOLUME 9.6 fL (8.7-11.7); PLATELET CLUMPS FLAG 0 (0-99); PLATELET COUNT 250 10^3/uL (150-400); RED BLOOD CELL COUNT 5.48 10^6/uL (4.40-6.38); RED CELL DISTRIBUTION WIDTH 12.8 % (11.5-15.2)
[2016-09-29 16:45] LABS: ANION GAP 19 mEq/L (8-16); CALCIUM 10.4 mg/dL (8.5-10.4); CARBON DIOXIDE 18 mEq/l (22-31); CHLORIDE 108 mEq/L (97-110); CREATININE 1.5 mg/dL (0.7-1.3); ETHANOL SERUM < 10 mg/dL (0-10); GLOMERULAR FILTRATION RATE 49; GLUCOSE 115 mg/dL (70-100); POTASSIUM 4.2 mEq/L (3.5-5.2); SALICYLATE < 1.0 mg/dL (2.0-20.0); SODIUM 145 mEq/L (134-144)
[2016-09-29] MEDS ORDERED: clonazePAM 1 MG TAB PO ONE (17:54)
[2016-09-29] MEDS ORDERED: NS 1,000 ML IV ONE (17:55)
[2016-09-29] MEDS ORDERED: diphenhydrAMINE 50 MG CAP PO ONE (19:22)
[2016-09-29] MEDS ORDERED: ZIPRASIDONE MESYLATE 20 MG VIAL IM ONE (19:22)
[2016-09-29] MEDS ORDERED: QUEtiapine FUMARATE 300 MG TAB PO ONE (20:02)
[2016-09-29] MEDS ORDERED: ACETAMINOPHEN 325 MG TAB PO ONE (20:02)
[2016-09-29] MEDS ORDERED: ZOLPIDEM TARTRATE 5 MG TAB PO ONE (20:02)
[2016-09-29] MEDS ORDERED: QUEtiapine FUMARATE 200 MG TAB ONE (20:08)
[2016-09-29] MEDS ORDERED: QUEtiapine FUMARATE 100 MG TAB ONE (20:08)
[2016-09-29] MEDS ORDERED: TRIHEXYPHENIDYL HCL 5 MG TAB PO ONE (20:45)
[2016-09-30] MEDS ORDERED: NICOTINE POLACRILEX 2 MG GUM B PRN (01:38)
[2016-09-30] MEDS ORDERED: OLANZapine 10 MG TAB PO PRN (01:39)
[2016-09-30] MEDS ORDERED: LORazepam 0.5 MG TAB PO PRN (01:48)
[2016-09-30] MEDS: ARIPiprazole 5 MG TAB PO SCH ×2 (09:25→19:32)
[2016-09-30] MEDS: NICOTINE 21 MG/24 HR PATCH TD SCH (09:25)
[2016-09-30] MEDS: clonazePAM 0.5 MG TAB PO SCH ×2 (09:25→19:32)
[2016-09-30] MEDS: MAGNESIUM HYDROXIDE 30 ML UDCUP PO PRN (09:51)
[2016-09-30] MEDS: traMADol 50 MG TAB PO PRN ×2 (11:53→18:35)
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
--- NOTE | 2016-09-30 17:33 | BCON ---
[f rep st] BEHAVIORAL HEALTH CONSULTATION INTERNAL MEDICINE CONSULTATION DATE OF CONSULTATION: 09/30/2016 REFERRING PHYSICIAN: Earlene Pacheco MD REASON FOR REFERRAL: Medical clearance for inpatient behavioral health stay. HISTORY OF PRESENT ILLNESS: The patient came to the emergency department yesterday, brought by EMS after he walked into a fire station acting psychotic. In the emergency department, he was noted to be tangential, to have pressured speech, rapid speaking and not making sense. He was evaluated by the mental health team and admitted for further psychiatric care. He currently complains of right knee pain. He thinks people were hitting his knees when he was in the homeless snf. He otherwise is without acute complaints. PAST MEDICAL HISTORY: 1. Hepatitis C. 2. Cerebrovascular accident. 3. Per the emergency department note, mild heart attack at time of stroke. 4. Arthritis in the knees. 5. PTSD. 6. Bipolar. 7. Carotid aneurysm. 8. Polysubstance abuse. 9. Schizoaffective disorder PAST SURGICAL HISTORY: I am not aware that he has had any surgeries. SOCIAL HISTORY: He is homeless. He is a smoker and he is a polysubstance abuser with a history of heroin abuse and amphetamines in his urine currently. He reports he has social security disability income. FAMILY HISTORY: Noncontributory. REVIEW OF SYSTEMS: Is confounded by his tangentiality, however other than pain in his knees he denies cough, dyspnea, chest pain, palpitations, nausea, vomiting, constipation or diarrhea. He reports he does not feel thirsty and thinks he has been hydrating normally. He reports he has some urinary hesitancy but feels that he does have complete voiding. Otherwise a 10-point review of systems is negative. PHYSICAL EXAM: VITAL SIGNS: Blood pressure yesterday at 22:49 was 155/89, heart rate was 99, respiratory rate was 18, oxygen saturation was 100% on room air. Temperature was 37 degrees centigrade. His weight is 81.6 kg for a body mass index of 24.4. GENERAL: This is a somewhat unkempt man with long hair that appears clean however. Cooperative and in no acute distress, but with psychomotor agitation and unable to sit still. HEENT: Extraocular movements are intact. Pupils are equal, round, and reactive to light. Mucous membranes are moist. He is edentulous. NECK: Supple. HEART: There is a regular rate and rhythm with no murmurs, rubs, or gallops. Heart sounds are somewhat distant. LUNGS: Clear to auscultation bilaterally. ABDOMEN: Soft, nontender , nondistended with normoactive bowel sounds and no bruits. EXTREMITIES: There is no cyanosis, clubbing, and/or edema. Radial and dorsalis pedis pulses are 2+ bilaterally. NEUROLOGIC: He is alert and oriented x3, but he is quite tangential and delusional speaking about millions and billions of dollars that have been his possession or have been stolen from him. Cranial nerves 2-12 are grossly intact. There is no focal weakness. Sensation is intact to light touch. LABORATORY STUDIES: Drawn in the emergency department. CBC showed an elevated white blood cell count with a predominance of neutrophils. White blood cells were 11.13 and absolute neutrophils at 8.99. Serum chemistry showed an elevated sodium at 145, a low carbon dioxide at 18, an elevated BUN at 25 and an elevated creatinine at 1.5. Estimated GFR was 49 and he had an anion gap of 19. Toxicology screen in the serum was negative for salicylates, acetaminophen or ethyl alcohol, and the urine was non-negative for opiates, amphetamines and marijuana. ASSESSMENT/RECOMMENDATIONS: 1. Mental health issues pending further evaluation and management per Psychiatry and the mental health team. 2. Acute kidney injury. Early in August on a previous emergency department visit , his creatinine and GFR were normal. This is of unclear etiology. I will repeat a basic metabolic profile in the morning. Given his anion gap, I will also check beta hydroxybutyrate and a CPK to rule out rhabdomyolysis. 3. Chronic pain with knee osteoarthritis. He has been prescribed acetaminophen as well as tramadol by Psychiatry. 4. Weight loss is noted over the past year. His recorded weight has been as much as 102 kg and today it is 81 kg. Given his psychiatric stay, his psychomotor agitation and his weight loss, I will check a TSH in the morning to rule out hyperthyroidism. 5. Elevated blood pressure. This also is a new problem for him. It might be due to his excited psychiatric state. Advised continued serial blood pressure monitoring. 6. Polysubstance abuse. Query whether this might be affecting his blood pressure as well as his kidney function. I see no medical contraindications to the patient's continued stay on the inpatient behavioral health unit or to any psychiatric medications or procedures with a caveat that he does have reduced renal function and Psychiatry should take his new account with any pharmacology decisions. I will continue to follow regarding his renal insufficiency and elevated blood pressure , and if these conditions continue further investigations will be done. Thank you very much for including me in the care of this patient, and please do not hesitate to contact me or the hospitalist service should there be need for further medical evaluation. /[id number]/MODL MTDD
[2016-09-30] MEDS: MAG HYDROX/AL HYDROX/SIMETH 30 ML UDCUP PO PRN (18:35)
[2016-09-30] MEDS: ZOLPIDEM TARTRATE 5 MG TAB PO PRN (19:32)
[2016-09-30] MEDS ORDERED: DOXEPIN HCL 25 MG CAP PO SCH (21:00)
[2016-09-30] MEDS: ACETAMINOPHEN 325 MG TAB PO PRN (23:18)
[2016-10-01] MEDS: traMADol 50 MG TAB PO PRN ×4 (00:14→18:02)
[2016-10-01] MEDS: MAGNESIUM HYDROXIDE 30 ML UDCUP PO PRN (06:11)
[2016-10-01] MEDS: ARIPiprazole 5 MG TAB PO SCH ×2 (08:40→19:49)
[2016-10-01] MEDS: NICOTINE 21 MG/24 HR PATCH TD SCH (08:40)
[2016-10-01] MEDS: clonazePAM 0.5 MG TAB PO SCH ×2 (08:40→19:49)
[2016-10-01 08:50] LABS: ALANINE AMINOTRANSFERASE 36 IU/L (21-72); ALBUMIN 3.8 g/dL (3.5-5.0); ALKALINE PHOSPHATASE 87 IU/L (38-126); ANION GAP 10 mEq/L (8-16); ASPARTATE AMINOTRANSFERASE 37 IU/L (17-59); BILIRUBIN,TOTAL 1.4 mg/dL (0.1-1.4); BILIRUBIN-CONJUGATED 0.4 mg/dL (0.0-0.5); CALCIUM 9.3 mg/dL (8.5-10.4); CARBON DIOXIDE 24 mEq/l (22-31); CHLORIDE 108 mEq/L (97-110); CREATININE 0.8 mg/dL (0.7-1.3); GLOMERULAR FILTRATION RATE > 60; GLUCOSE 95 mg/dL (70-100); POTASSIUM 4.7 mEq/L (3.5-5.2); SODIUM 142 mEq/L (134-144); TOTAL PROTEIN 6.8 g/dL (6.3-8.2)
--- NOTE | 2016-10-01 09:29 | SOAPPROG ---
SOVIVIAN Progress Note Assessment/Plan: Assessment: Plan: 10/01/16 DAY ' U[DATE/EXAM: Objective: Vital Signs Temp Pulse Resp BP Pulse Ox 36.6 C 81 14 136/89 H 92 10/01/16 06:03 10/01/16 06:03 10/01/16 06:03 10/01/16 06:03 10/01/16 06:03 Laboratory Results 10/01/16 06:00 ICD10 Worksheet Patient Problems: Problems Problem Status Onset Acute psychosis Acute Chest wall pain Acute Knee pain, bilateral Acute Malingering Acute Osteoarthritis Acute
[2016-10-01 09:53] LABS: CK-MB INTERPRETATION NEGATIVE (NEGATIVE)
[2016-10-01 09:59] LABS: B-HYDROXYBUTYRATE 0.19 mmol/L (0.02-0.27)
[2016-10-01 10:56] LABS: CREATINE KINASE-MB FRACTION 2.34 ng/mL (0-3.19)
[2016-10-01] MEDS ORDERED: ALBUTEROL 60 PUFFS/8 GM MDI IH PRN (14:34)
--- NOTE | 2016-10-01 14:42 | SOAPPROG ---
SOAP Progress Note Assessment/Plan: Assessment: Plan: 10/01/16 14:00 DAY ' U[DATE/EXAM: Pt per Nursing remaining in control and c/w cares and meds; still isolative but is taking meals in DR/ on direct exam thought process better organized but with residual PI and persecutory delusions; responsive to reintegrative support; meds changes as referenced d/w pt cooperatively. ASSESSMENT/PLAN: early phase recompensation/ increase Doxepin to 50 mg hs; add Albuterol IH prn, add Artane 2 mg qd at pt's request Objective: Vital Signs Temp Pulse Resp BP Pulse Ox 36.6 C 81 14 136/89 H 92 10/01/16 06:03 10/01/16 06:03 10/01/16 06:03 10/01/16 06:03 10/01/16 06:03 Laboratory Results 10/01/16 06:00 ICD10 Worksheet Patient Problems: Problems Problem Status Onset Acute psychosis Acute Chest wall pain Acute Knee pain, bilateral Acute Malingering Acute Osteoarthritis Acute
[2016-10-01] MEDS: MAG HYDROX/AL HYDROX/SIMETH 30 ML UDCUP PO PRN (18:05)
[2016-10-01] MEDS: ZOLPIDEM TARTRATE 5 MG TAB PO PRN (19:49)
[2016-10-01] MEDS: DOXEPIN HCL 50 MG CAP PO SCH ×2 (21:04→22:11)
[2016-10-02] MEDS: traMADol 50 MG TAB PO PRN ×4 (01:41→21:40)
[2016-10-02] MEDS: ACETAMINOPHEN 325 MG TAB PO PRN (06:41)
--- NOTE | 2016-10-02 07:45 | SOAPPROG ---
SOAP Progress Note Assessment/Plan: Assessment: Plan: 10/01/16 14:00 DAY ' U[DATE/EXAM: Pt per Nursing remaining in control and c/w cares and meds; still isolative but is taking meals in DR/ on direct exam thought process better organized but with residual PI and persecutory delusions; responsive to reintegrative support; meds changes as referenced d/w pt cooperatively. ASSESSMENT/PLAN: early phase recompensation/ increase Doxepin to 50 mg hs; add Albuterol IH prn, add Artane 2 mg qd at pt's request 10/02/16 DAY UPDATE/EXAM: Objective: Vital Signs Temp Pulse Resp BP Pulse Ox 36.6 C 90 12 122/89 H 93 10/02/16 01:42 10/02/16 01:42 10/02/16 01:42 10/02/16 01:42 10/02/16 01:42 Laboratory Results 10/01/16 06:00 ICD10 Worksheet Patient Problems: Problems Problem Status Onset Acute psychosis Acute Chest wall pain Acute Knee pain, bilateral Acute Malingering Acute Osteoarthritis Acute
[2016-10-02] MEDS: TRIHEXYPHENIDYL HCL 2 MG TAB PO SCH (08:18)
[2016-10-02] MEDS: clonazePAM 0.5 MG TAB PO SCH ×2 (08:18→19:31)
[2016-10-02] MEDS: NICOTINE 21 MG/24 HR PATCH TD SCH (08:18)
[2016-10-02] MEDS: ARIPiprazole 5 MG TAB PO SCH ×2 (08:18→19:31)
--- NOTE | 2016-10-02 12:32 | SOAPPROG ---
SOAP Progress Note Assessment/Plan: Assessment: Plan: 10/01/16 14:00 DAY ' U[DATE/EXAM: Pt per Nursing remaining in control and c/w cares and meds; still isolative but is taking meals in DR/ on direct exam thought process better organized but with residual PI and persecutory delusions; responsive to reintegrative support; meds changes as referenced d/w pt cooperatively. ASSESSMENT/PLAN: early phase recompensation/ increase Doxepin to 50 mg hs; add Albuterol IH prn, add Artane 2 mg qd at pt's request 10/02/16 09;00 UPDATE/EXAM: Nursing reports pt compliant wiht cares and meds, in behavioral control, remains relatively isolative but is taking meals in DR, better sleep and ADL attention/ on direct exam pt is calm and conversant; though process better organized b/w residual persecutory delusions and generalized PI. He c/o not receiving disability checks since terminated by [facility] in March, having to panhandle or ?steal money to get by. He agrees with re-establishing community treatment so he can re-activate a payee and obtain money to live on; understands that we will try to activate treatment in the community but not with [facility] which we and pt understand will not accept him back given his h /o aggressivity toward staff and ? property destruction in the past. ASSESSMENT/PLAN: recompensating progress continues/ no change in current meds and management; DC planning in early phase to identify treatment resource in community Objective: Vital Signs Temp Pulse Resp BP Pulse Ox 36.6 C 90 12 122/89 H 93 10/02/16 01:42 10/02/16 01:42 10/02/16 01:42 10/02/16 01:42 10/02/16 01:42 Laboratory Results 10/01/16 06:00 ICD10 Worksheet Patient Problems: Problems Problem Status Onset Acute psychosis Acute Chest wall pain Acute Knee pain, bilateral Acute Malingering Acute Osteoarthritis Acute
[2016-10-02] MEDS: NICOTINE POLACRILEX 2 MG GUM B PRN ×2 (15:55→17:44)
[2016-10-02] MEDS: ZOLPIDEM TARTRATE 5 MG TAB PO PRN (19:33)
[2016-10-02] MEDS: DOXEPIN HCL 50 MG CAP PO SCH (21:19)
[2016-10-02] MEDS: MAG HYDROX/AL HYDROX/SIMETH 30 ML UDCUP PO PRN (21:45)
--- NOTE | 2016-10-03 06:23 | SOAPPROG ---
SOAP Progress Note Assessment/Plan: Assessment: Plan: 10/01/16 14:00 DAY ' U[DATE/EXAM: Pt per Nursing remaining in control and c/w cares and meds; still isolative but is taking meals in DR/ on direct exam thought process better organized but with residual PI and persecutory delusions; responsive to reintegrative support; meds changes as referenced d/w pt cooperatively. ASSESSMENT/PLAN: early phase recompensation/ increase Doxepin to 50 mg hs; add Albuterol IH prn, add Artane 2 mg qd at pt's request 10/02/16 09;00 DAY UPDATE/EXAM: Nursing reports pt compliant with cares and meds, in behavioral control, remains relatively isolative but is taking meals in DR, better sleep and ADL attention/ on direct exam pt is calm and conversant; though process better organized b/w residual persecutory delusions and generalized PI. He c/o not receiving disability checks since terminated by [facility] in March, having to panhandle or ?steal money to get by. He agrees with re-establishing community treatment so he can re-activate a payee and obtain money to live on; understands that we will try to activate treatment in the community but not with [facility] which we and pt understand will not accept him back given his h /o aggressivity toward staff and ? property destruction in the past. ASSESSMENT/PLAN: recompensating progress continues/ no change in current meds and management; DC planning in early phase to identify treatment resource in community 10/03/16 DAY UPDATE/EXAM: Objective: Vital Signs Temp Pulse Resp BP Pulse Ox 36.6 C 90 12 122/89 H 93 10/02/16 01:42 10/02/16 01:42 10/02/16 01:42 10/02/16 01:42 10/02/16 01:42 Laboratory Results 10/01/16 06:00 ICD10 Worksheet Patient Problems: Problems Problem Status Onset Acute psychosis Acute Chest wall pain Acute Knee pain, bilateral Acute Malingering Acute Osteoarthritis Acute
[2016-10-03] MEDS: traMADol 50 MG TAB PO PRN ×3 (07:23→19:53)
[2016-10-03] MEDS: ARIPiprazole 5 MG TAB PO SCH ×3 (08:17→19:53)
[2016-10-03] MEDS: clonazePAM 0.5 MG TAB PO SCH ×2 (08:17→19:50)
[2016-10-03] MEDS: TRIHEXYPHENIDYL HCL 2 MG TAB PO SCH (08:17)
[2016-10-03] MEDS: NICOTINE POLACRILEX 2 MG GUM B PRN ×4 (08:19→18:25)
[2016-10-03] MEDS ORDERED: ARIPIPRAZOLE (ABILIFY MAINTENA) 400 MG VIAL IM ONE (11:18)
[2016-10-03] MEDS: MULTIVITAMINS 1 EACH TAB PO SCH (13:11)
--- NOTE | 2016-10-03 13:21 | SOAPPROG ---
SOAP Progress Note Assessment/Plan: Assessment: Plan: 10/01/16 14:00 DAY ' U[DATE/EXAM: Pt per Nursing remaining in control and c/w cares and meds; still isolative but is taking meals in DR/ on direct exam thought process better organized but with residual PI and persecutory delusions; responsive to reintegrative support; meds changes as referenced d/w pt cooperatively. ASSESSMENT/PLAN: early phase recompensation/ increase Doxepin to 50 mg hs; add Albuterol IH prn, add Artane 2 mg qd at pt's request 10/02/16 09;00 DAY UPDATE/EXAM: Nursing reports pt compliant with cares and meds, in behavioral control, remains relatively isolative but is taking meals in DR, better sleep and ADL attention/ on direct exam pt is calm and conversant; though process better organized b/w residual persecutory delusions and generalized PI. He c/o not receiving disability checks since terminated by [facility] in March, having to panhandle or ?steal money to get by. He agrees with re-establishing community treatment so he can re-activate a payee and obtain money to live on; understands that we will try to activate treatment in the community but not with [facility] which we and pt understand will not accept him back given his h /o aggressivity toward staff and ? property destruction in the past. ASSESSMENT/PLAN: recompensating progress continues/ no change in current meds and management; DC planning in early phase to identify treatment resource in community 10/03/16 11:00 DAY UPDATE/EXAM: Nursing reports continued descriptive progress with behavioral control, improving ADL's, oess observable residual psychosis, lessening isolation, c/w cares and meds/ on direct exam pt is calm, cooperative, conversant; delusional thought process more circumscribed; pt agrees to accept depot Abilify on 10/05; also understands his PCP is the one clinician who will work with him post DC for meds management and ? case management services thru her office staff and he accepts this as the primary dC resource; + response to reintegrative support during session. ASSESSMENT/PLAN: progressing with advancing recompensation / no change in meds or management plan; will prescribe depot Abilify 400 mg IM on 10/05 Objective: Vital Signs Temp Pulse Resp BP Pulse Ox 36.6 C 77 12 114/67 90 L 10/02/16 01:42 10/03/16 06:00 10/03/16 06:00 10/03/16 06:00 10/03/16 06:00 Laboratory Results 10/01/16 06:00 ICD10 Worksheet Patient Problems: Problems Problem Status Onset Acute psychosis Acute Chest wall pain Acute Knee pain, bilateral Acute Malingering Acute Osteoarthritis Acute
[2016-10-03] MEDS: ALBUTEROL 200 PUFFS/18 GM MDI IH PRN (15:52)
[2016-10-03] MEDS: ACETAMINOPHEN 325 MG TAB PO PRN (16:31)
[2016-10-03] MEDS: MAG HYDROX/AL HYDROX/SIMETH 30 ML UDCUP PO PRN (19:01)
[2016-10-03] MEDS: ZOLPIDEM TARTRATE 5 MG TAB PO PRN (19:51)
[2016-10-03] MEDS: DOXEPIN HCL 50 MG CAP PO SCH ×2 (19:53→21:17)
[2016-10-04] MEDS: traMADol 50 MG TAB PO PRN ×3 (06:38→18:33)
[2016-10-04] MEDS: ALBUTEROL 200 PUFFS/18 GM MDI IH PRN (07:42)
[2016-10-04] MEDS: TRIHEXYPHENIDYL HCL 2 MG TAB PO SCH (07:49)
[2016-10-04] MEDS: ARIPiprazole 5 MG TAB PO SCH ×4 (07:50→20:06)
[2016-10-04] MEDS: MULTIVITAMINS 1 EACH TAB PO SCH (07:50)
[2016-10-04] MEDS: clonazePAM 0.5 MG TAB PO SCH ×2 (07:50→19:56)
[2016-10-04] MEDS: ACETAMINOPHEN 325 MG TAB PO PRN (08:18)
[2016-10-04] MEDS: NICOTINE POLACRILEX 2 MG GUM B PRN ×4 (08:32→18:34)
--- NOTE | 2016-10-04 08:51 | SOAPPROG ---
SOAP Progress Note Assessment/Plan: Assessment: Plan: 10/01/16 14:00 DAY ' U[DATE/EXAM: Pt per Nursing remaining in control and c/w cares and meds; still isolative but is taking meals in DR/ on direct exam thought process better organized but with residual PI and persecutory delusions; responsive to reintegrative support; meds changes as referenced d/w pt cooperatively. ASSESSMENT/PLAN: early phase recompensation/ increase Doxepin to 50 mg hs; add Albuterol IH prn, add Artane 2 mg qd at pt's request 10/02/16 09;00 DAY UPDATE/EXAM: Nursing reports pt compliant with cares and meds, in behavioral control, remains relatively isolative but is taking meals in DR, better sleep and ADL attention/ on direct exam pt is calm and conversant; though process better organized b/w residual persecutory delusions and generalized PI. He c/o not receiving disability checks since terminated by [facility] in March, having to panhandle or ?steal money to get by. He agrees with re-establishing community treatment so he can re-activate a payee and obtain money to live on; understands that we will try to activate treatment in the community but not with [facility] which we and pt understand will not accept him back given his h /o aggressivity toward staff and ? property destruction in the past. ASSESSMENT/PLAN: recompensating progress continues/ no change in current meds and management; DC planning in early phase to identify treatment resource in community 10/03/16 11:00 DAY UPDATE/EXAM: Nursing reports continued descriptive progress with behavioral control, improving ADL's, less observable residual psychosis, lessening isolation, c/w cares and meds/ on direct exam pt is calm, cooperative, conversant; delusional thought process more circumscribed; pt agrees to accept depot Abilify on 10/05; also understands his PCP is the one clinician who will work with him post DC for meds management and ? case management services thru her office staff and he accepts this as the primary DC resource; + response to reintegrative support during session. ASSESSMENT/PLAN: progressing with advancing recompensation / no change in meds or management plan; will prescribe depot Abilify 400 mg IM on 10/0510/04/16 DAY ' UPDATE/EXAM ; Objective: Vital Signs Temp Pulse Resp BP Pulse Ox 37.0 C 82 12 102/67 92 10/04/16 06:00 10/04/16 06:00 10/04/16 06:00 10/04/16 06:00 10/04/16 06:00 Laboratory Results 10/01/16 06:00 ICD10 Worksheet Patient Problems: Problems Problem Status Onset Acute psychosis Acute Chest wall pain Acute Knee pain, bilateral Acute Malingering Acute Osteoarthritis Acute
--- NOTE | 2016-10-04 11:06 | SOAPPROG ---
SOAP Progress Note Assessment/Plan: Assessment: Plan: 10/01/16 14:00 DAY ' U[DATE/EXAM: Pt per Nursing remaining in control and c/w cares and meds; still isolative but is taking meals in DR/ on direct exam thought process better organized but with residual PI and persecutory delusions; responsive to reintegrative support; meds changes as referenced d/w pt cooperatively. ASSESSMENT/PLAN: early phase recompensation/ increase Doxepin to 50 mg hs; add Albuterol IH prn, add Artane 2 mg qd at pt's request 10/02/16 09;00 DAY UPDATE/EXAM: Nursing reports pt compliant with cares and meds, in behavioral control, remains relatively isolative but is taking meals in DR, better sleep and ADL attention/ on direct exam pt is calm and conversant; though process better organized b/w residual persecutory delusions and generalized PI. He c/o not receiving disability checks since terminated by [facility] in March, having to panhandle or ?steal money to get by. He agrees with re-establishing community treatment so he can re-activate a payee and obtain money to live on; understands that we will try to activate treatment in the community but not with [facility] which we and pt understand will not accept him back given his h /o aggressivity toward staff and ? property destruction in the past. ASSESSMENT/PLAN: recompensating progress continues/ no change in current meds and management; DC planning in early phase to identify treatment resource in community 10/03/16 11:00 DAY UPDATE/EXAM: Nursing reports continued descriptive progress with behavioral control, improving ADL's, less observable residual psychosis, lessening isolation, c/w cares and meds/ on direct exam pt is calm, cooperative, conversant; delusional thought process more circumscribed; pt agrees to accept depot Abilify on 10/05; also understands his PCP is the one clinician who will work with him post DC for meds management and ? case management services thru her office staff and he accepts this as the primary DC resource; + response to reintegrative support during session. ASSESSMENT/PLAN: progressing with advancing recompensation / no change in meds or management plan; will prescribe depot Abilify 400 mg IM on 10/0510/04/16 08:30 DAY ' UPDATE/EXAM: Nursing reports pt remains in behavioral control but that he has refused to take last 2 doses of Abilify 5mg; has read about side-effects and concerned about "seizures" which relates to what happened "to nirmalelvis 1989 after injection of Haldol"/ on direct exam pt remains delusional at less intense and intrusive levle; does agree to take po Abilify and depot injection of Abilify tomorrow; given reassurance his other oral medications as ordered will continue and po Abilify will be dc'd after bid dosings today and tomorrow; generally responsive to reintegrative support during the session. ASSESSMENT/PLAN: residual psychotic acuity but improving in early phase/ no change in current meds and management plan as d/w Nursing in Rounds ; Objective: Vital Signs Temp Pulse Resp BP Pulse Ox 37.0 C 82 12 102/67 92 10/04/16 06:00 10/04/16 06:00 10/04/16 06:00 10/04/16 06:00 10/04/16 06:00 Laboratory Results 10/01/16 06:00 ICD10 Worksheet Patient Problems: Problems Problem Status Onset Acute psychosis Acute Chest wall pain Acute Knee pain, bilateral Acute Malingering Acute Osteoarthritis Acute
[2016-10-04] MEDS: ZOLPIDEM TARTRATE 5 MG TAB PO PRN (19:57)
[2016-10-04] MEDS: IBUPROFEN 600 MG TAB PO PRN (20:05)
[2016-10-04] MEDS: DOXEPIN HCL 50 MG CAP PO SCH (20:07)
[2016-10-05] MEDS: traMADol 50 MG TAB PO PRN ×3 (03:35→21:52)
[2016-10-05] MEDS: MAG HYDROX/AL HYDROX/SIMETH 30 ML UDCUP PO PRN ×2 (03:35→19:49)
[2016-10-05] MEDS: NICOTINE POLACRILEX 2 MG GUM B PRN (08:22)
[2016-10-05] MEDS: ARIPiprazole 5 MG TAB PO SCH ×2 (08:46→19:49)
[2016-10-05] MEDS: MULTIVITAMINS 1 EACH TAB PO SCH (08:47)
[2016-10-05] MEDS: clonazePAM 0.5 MG TAB PO SCH ×2 (08:47→19:48)
[2016-10-05] MEDS: TRIHEXYPHENIDYL HCL 2 MG TAB PO SCH (08:47)
[2016-10-05] MEDS ORDERED: ARIPIPRAZOLE (ABILIFY MAINTENA) 400 MG VIAL IM ONE (11:30)
[2016-10-05] MEDS: ALBUTEROL 200 PUFFS/18 GM MDI IH PRN (11:45)
[2016-10-05] MEDS: IBUPROFEN 600 MG TAB PO PRN (13:02)
--- NOTE | 2016-10-05 15:06 | SOAPPROG ---
SOAP Progress Note Assessment/Plan: Assessment: Plan: 10/01/16 14:00 DAY ' U[DATE/EXAM: Pt per Nursing remaining in control and c/w cares and meds; still isolative but is taking meals in DR/ on direct exam thought process better organized but with residual PI and persecutory delusions; responsive to reintegrative support; meds changes as referenced d/w pt cooperatively. ASSESSMENT/PLAN: early phase recompensation/ increase Doxepin to 50 mg hs; add Albuterol IH prn, add Artane 2 mg qd at pt's request 10/02/16 09;00 DAY UPDATE/EXAM: Nursing reports pt compliant with cares and meds, in behavioral control, remains relatively isolative but is taking meals in DR, better sleep and ADL attention/ on direct exam pt is calm and conversant; though process better organized b/w residual persecutory delusions and generalized PI. He c/o not receiving disability checks since terminated by [facility] in March, having to panhandle or ?steal money to get by. He agrees with re-establishing community treatment so he can re-activate a payee and obtain money to live on; understands that we will try to activate treatment in the community but not with [facility] which we and pt understand will not accept him back given his h /o aggressivity toward staff and ? property destruction in the past. ASSESSMENT/PLAN: recompensating progress continues/ no change in current meds and management; DC planning in early phase to identify treatment resource in community 10/03/16 11:00 DAY UPDATE/EXAM: Nursing reports continued descriptive progress with behavioral control, improving ADL's, less observable residual psychosis, lessening isolation, c/w cares and meds/ on direct exam pt is calm, cooperative, conversant; delusional thought process more circumscribed; pt agrees to accept depot Abilify on 10/05; also understands his PCP is the one clinician who will work with him post DC for meds management and ? case management services thru her office staff and he accepts this as the primary DC resource; + response to reintegrative support during session. ASSESSMENT/PLAN: progressing with advancing recompensation / no change in meds or management plan; will prescribe depot Abilify 400 mg IM on 10/0510/04/16 08:30 DAY ' UPDATE/EXAM: Nursing reports pt remains in behavioral control but that he has refused to take last 2 doses of Abilify 5mg; has read about side-effects and concerned about "seizures" which relates to what happened "to jose Mosley after injection of Haldol"/ on direct exam pt remains delusional at less intense and intrusive levle; does agree to take po Abilify and depot injection of Abilify tomorrow; given reassurance his other oral medications as ordered will continue and po Abilify will be dc'd after bid dosings today and tomorrow; generally responsive to reintegrative support during the session. ASSESSMENT/PLAN: residual psychotic acuity but improving in early phase/ no change in current meds and management plan as d/w Nursing in [place] ; 10/05/16 14:00 UPDATE/EXAM: Nursing reports that pt in control, intermittently resistant to taking Abilify, does evidence residual PI/ persecutory and grandiose delusions to a lesser degree/ on direct exam agrees to comply with depot Abilify and is then accomplished with me present with Rn giving injection; pt again responsive to reintegrative support. ASSESSMENT/PLAN: continues to juan drake pace progress; psychosis less acute and may be approaching subacute stability/ no change in meds today but will DC Abilify tomorrow, continue other meds as ordered; anticipate reaching PCP early in week to finalize DC planning. Objective: Vital Signs Temp Pulse Resp BP Pulse Ox 37.0 C 83 14 100/67 93 10/04/16 06:00 10/05/16 06:00 10/05/16 06:00 10/05/16 06:00 10/05/16 06:00 Laboratory Results 10/01/16 06:00 ICD10 Worksheet Patient Problems: Problems Problem Status Onset Acute psychosis Acute Chest wall pain Acute Knee pain, bilateral Acute Malingering Acute Osteoarthritis Acute
[2016-10-05] MEDS: DOXEPIN HCL 50 MG CAP PO SCH (19:49)
[2016-10-05] MEDS: ZOLPIDEM TARTRATE 5 MG TAB PO PRN (19:50)
[2016-10-05] MEDS: TRIHEXYPHENIDYL HCL 2 MG TAB PO PRN (20:23)
[2016-10-05] MEDS: ACETAMINOPHEN 325 MG TAB PO PRN (21:53)
[2016-10-06] MEDS: traMADol 50 MG TAB PO PRN ×3 (05:00→21:14)
[2016-10-06] MEDS: IBUPROFEN 600 MG TAB PO PRN ×2 (05:00→13:23)
[2016-10-06 06:24] VITALS: RESP 12
[2016-10-06] MEDS: MULTIVITAMINS 1 EACH TAB PO SCH (08:28)
[2016-10-06] MEDS: TRIHEXYPHENIDYL HCL 2 MG TAB PO SCH (08:28)
[2016-10-06] MEDS: clonazePAM 0.5 MG TAB PO SCH ×2 (08:28→18:46)
--- NOTE | 2016-10-06 08:29 | SOAPPROG ---
SOAP Progress Note Assessment/Plan: Assessment: Plan: 10/01/16 14:00 DAY ' U[DATE/EXAM: Pt per Nursing remaining in control and c/w cares and meds; still isolative but is taking meals in DR/ on direct exam thought process better organized but with residual PI and persecutory delusions; responsive to reintegrative support; meds changes as referenced d/w pt cooperatively. ASSESSMENT/PLAN: early phase recompensation/ increase Doxepin to 50 mg hs; add Albuterol IH prn, add Artane 2 mg qd at pt's request 10/02/16 09;00 DAY UPDATE/EXAM: Nursing reports pt compliant with cares and meds, in behavioral control, remains relatively isolative but is taking meals in DR, better sleep and ADL attention/ on direct exam pt is calm and conversant; though process better organized b/w residual persecutory delusions and generalized PI. He c/o not receiving disability checks since terminated by [facility] in March, having to panhandle or ?steal money to get by. He agrees with re-establishing community treatment so he can re-activate a payee and obtain money to live on; understands that we will try to activate treatment in the community but not with [facility] which we and pt understand will not accept him back given his h /o aggressivity toward staff and ? property destruction in the past. ASSESSMENT/PLAN: recompensating progress continues/ no change in current meds and management; DC planning in early phase to identify treatment resource in community 10/03/16 11:00 DAY UPDATE/EXAM: Nursing reports continued descriptive progress with behavioral control, improving ADL's, less observable residual psychosis, lessening isolation, c/w cares and meds/ on direct exam pt is calm, cooperative, conversant; delusional thought process more circumscribed; pt agrees to accept depot Abilify on 10/05; also understands his PCP is the one clinician who will work with him post DC for meds management and ? case management services thru her office staff and he accepts this as the primary DC resource; + response to reintegrative support during session. ASSESSMENT/PLAN: progressing with advancing recompensation / no change in meds or management plan; will prescribe depot Abilify 400 mg IM on 10/0510/04/16 08:30 DAY ' UPDATE/EXAM: Nursing reports pt remains in behavioral control but that he has refused to take last 2 doses of Abilify 5mg; has read about side-effects and concerned about "seizures" which relates to what happened "to jose Mosely after injection of Haldol"/ on direct exam pt remains delusional at less intense and intrusive levle; does agree to take po Abilify and depot injection of Abilify tomorrow; given reassurance his other oral medications as ordered will continue and po Abilify will be dc'd after bid dosings today and tomorrow; generally responsive to reintegrative support during the session. ASSESSMENT/PLAN: residual psychotic acuity but improving in early phase/ no change in current meds and management plan as d/w Nursing in [place] ; 10/05/16 14:00 DAY ' UPDATE/EXAM: Nursing reports that pt in control, intermittently resistant to taking Abilify, does evidence residual PI/ persecutory and grandiose delusions to a lesser degree/ on direct exam agrees to comply with depot Abilify and is then accomplished with me present with Rn giving injection; pt again responsive to reintegrative support. ASSESSMENT/PLAN: continues to make paced progress; psychosis less acute and may be approaching subacute stability/ no change in meds today but will DC Abilify tomorrow, continue other meds as ordered; anticipate reaching PCP early in week to finalize DC planning. 10/06/16 DAY ' UPDDATE/EXAM: Objective: Vital Signs Temp Pulse Resp BP Pulse Ox 36.6 C 71 12 108/74 95 10/06/16 06:23 10/06/16 06:23 10/06/16 06:23 10/06/16 06:23 10/06/16 06:23 Laboratory Results 10/01/16 06:00 ICD10 Worksheet Patient Problems: Problems Problem Status Onset Acute psychosis Acute Chest wall pain Acute Knee pain, bilateral Acute Malingering Acute Osteoarthritis Acute
[2016-10-06] MEDS: NICOTINE POLACRILEX 2 MG GUM B PRN ×2 (09:27→13:25)
[2016-10-06] MEDS: ARIPiprazole 5 MG TAB PO SCH ×2 (10:19→21:17)
--- NOTE | 2016-10-06 13:30 | SOAPPROG ---
SOAP Progress Note Assessment/Plan: Assessment: Plan: 10/01/16 14:00 DAY ' U[DATE/EXAM: Pt per Nursing remaining in control and c/w cares and meds; still isolative but is taking meals in DR/ on direct exam thought process better organized but with residual PI and persecutory delusions; responsive to reintegrative support; meds changes as referenced d/w pt cooperatively. ASSESSMENT/PLAN: early phase recompensation/ increase Doxepin to 50 mg hs; add Albuterol IH prn, add Artane 2 mg qd at pt's request 10/02/16 09;00 DAY UPDATE/EXAM: Nursing reports pt compliant with cares and meds, in behavioral control, remains relatively isolative but is taking meals in DR, better sleep and ADL attention/ on direct exam pt is calm and conversant; though process better organized b/w residual persecutory delusions and generalized PI. He c/o not receiving disability checks since terminated by [facility] in March, having to panhandle or ?steal money to get by. He agrees with re-establishing community treatment so he can re-activate a payee and obtain money to live on; understands that we will try to activate treatment in the community but not with [facility] which we and pt understand will not accept him back given his h /o aggressivity toward staff and ? property destruction in the past. ASSESSMENT/PLAN: recompensating progress continues/ no change in current meds and management; DC planning in early phase to identify treatment resource in community 10/03/16 11:00 DAY UPDATE/EXAM: Nursing reports continued descriptive progress with behavioral control, improving ADL's, less observable residual psychosis, lessening isolation, c/w cares and meds/ on direct exam pt is calm, cooperative, conversant; delusional thought process more circumscribed; pt agrees to accept depot Abilify on 10/05; also understands his PCP is the one clinician who will work with him post DC for meds management and ? case management services thru her office staff and he accepts this as the primary DC resource; + response to reintegrative support during session. ASSESSMENT/PLAN: progressing with advancing recompensation / no change in meds or management plan; will prescribe depot Abilify 400 mg IM on 10/0510/04/16 08:30 DAY ' UPDATE/EXAM: Nursing reports pt remains in behavioral control but that he has refused to take last 2 doses of Abilify 5mg; has read about side-effects and concerned about "seizures" which relates to what happened "to jose Mosley after injection of Haldol"/ on direct exam pt remains delusional at less intense and intrusive levle; does agree to take po Abilify and depot injection of Abilify tomorrow; given reassurance his other oral medications as ordered will continue and po Abilify will be dc'd after bid dosings today and tomorrow; generally responsive to reintegrative support during the session. ASSESSMENT/PLAN: residual psychotic acuity but improving in early phase/ no change in current meds and management plan as d/w Nursing in [place] ; 10/05/16 14:00 DAY ' UPDATE/EXAM: Nursing reports that pt in control, intermittently resistant to taking Abilify, does evidence residual PI/ persecutory and grandiose delusions to a lesser degree/ on direct exam agrees to comply with depot Abilify and is then accomplished with me present with RN giving injection; pt again responsive to reintegrative support. ASSESSMENT/PLAN: continues to make paced progress; psychosis less acute and may be approaching subacute stability/ no change in meds today but will DC Abilify tomorrow, continue other meds as ordered; anticipate reaching PCP early in week to finalize DC planning. 10/06/16 10:30 DAY ' UPDDATE/EXAM: per Nursing improving course sustained/ on direct exam pt presents as calm, cooperative, conversant; residual circumscribed persecutory and grandiose delusions but stated with less intensity and disruption as reality testing capacity is stronger and more predominant; meds reviewed and DC planning discussed. ASSESSMENT/PLAN: improving entering DC planning phase actively/ no change in meds or management plan; will make speaker phone meeting with medical office assistant for PCP tomorrow with whom I made initial contat today - will schedule appointment and discuss terms for pt to be seen post DC and also set DC date from inpt status. Objective: Vital Signs Temp Pulse Resp BP Pulse Ox 36.6 C 71 12 108/74 95 10/06/16 06:23 10/06/16 06:23 10/06/16 06:23 10/06/16 06:23 10/06/16 06:23 Laboratory Results 10/01/16 06:00 ICD10 Worksheet Patient Problems: Problems Problem Status Onset Acute psychosis Acute Chest wall pain Acute Knee pain, bilateral Acute Malingering Acute Osteoarthritis Acute
[2016-10-06] MEDS: MAG HYDROX/AL HYDROX/SIMETH 30 ML UDCUP PO PRN (18:15)
[2016-10-06] MEDS: ZOLPIDEM TARTRATE 5 MG TAB PO PRN (19:59)
[2016-10-06] MEDS: DOXEPIN HCL 50 MG CAP PO SCH (19:59)
[2016-10-06] MEDS: hydrOXYzine HCL 50 MG TAB PO PRN (20:01)
[2016-10-07] MEDS: traMADol 50 MG TAB PO PRN ×4 (03:32→23:09)
[2016-10-07] MEDS: IBUPROFEN 600 MG TAB PO PRN ×3 (03:34→23:09)
[2016-10-07] MEDS: ARIPiprazole 5 MG TAB PO SCH ×2 (09:19→09:24)
[2016-10-07] MEDS: TRIHEXYPHENIDYL HCL 2 MG TAB PO SCH (09:19)
[2016-10-07] MEDS: MULTIVITAMINS 1 EACH TAB PO SCH (09:19)
[2016-10-07] MEDS: clonazePAM 0.5 MG TAB PO SCH ×2 (09:19→19:41)
[2016-10-07] MEDS: NICOTINE POLACRILEX 2 MG GUM B PRN ×3 (09:23→15:04)
--- NOTE | 2016-10-07 11:35 | SOAPPROG ---
SOAP Progress Note Assessment/Plan: Assessment: Plan: 10/01/16 14:00 DAY ' U[DATE/EXAM: Pt per Nursing remaining in control and c/w cares and meds; still isolative but is taking meals in DR/ on direct exam thought process better organized but with residual PI and persecutory delusions; responsive to reintegrative support; meds changes as referenced d/w pt cooperatively. ASSESSMENT/PLAN: early phase recompensation/ increase Doxepin to 50 mg hs; add Albuterol IH prn, add Artane 2 mg qd at pt's request 10/02/16 09;00 DAY UPDATE/EXAM: Nursing reports pt compliant with cares and meds, in behavioral control, remains relatively isolative but is taking meals in DR, better sleep and ADL attention/ on direct exam pt is calm and conversant; though process better organized b/w residual persecutory delusions and generalized PI. He c/o not receiving disability checks since terminated by [facility] in March, having to panhandle or ?steal money to get by. He agrees with re-establishing community treatment so he can re-activate a payee and obtain money to live on; understands that we will try to activate treatment in the community but not with [facility] which we and pt understand will not accept him back given his h /o aggressivity toward staff and ? property destruction in the past. ASSESSMENT/PLAN: recompensating progress continues/ no change in current meds and management; DC planning in early phase to identify treatment resource in community 10/03/16 11:00 DAY UPDATE/EXAM: Nursing reports continued descriptive progress with behavioral control, improving ADL's, less observable residual psychosis, lessening isolation, c/w cares and meds/ on direct exam pt is calm, cooperative, conversant; delusional thought process more circumscribed; pt agrees to accept depot Abilify on 10/05; also understands his PCP is the one clinician who will work with him post DC for meds management and ? case management services thru her office staff and he accepts this as the primary DC resource; + response to reintegrative support during session. ASSESSMENT/PLAN: progressing with advancing recompensation / no change in meds or management plan; will prescribe depot Abilify 400 mg IM on 10/0510/04/16 08:30 DAY UPDATE/EXAM: Nursing reports pt remains in behavioral control but that he has refused to take last 2 doses of Abilify 5mg; has read about side-effects and concerned about "seizures" which relates to what happened "to me in 1988 after injection of Haldol"/ on direct exam pt remains delusional at less intense and intrusive levle; does agree to take po Abilify and depot injection of Abilify tomorrow; given reassurance his other oral medications as ordered will continue and po Abilify will be dc'd after bid dosings today and tomorrow; generally responsive to reintegrative support during the session. ASSESSMENT/PLAN: residual psychotic acuity but improving in early phase/ no change in current meds and management plan as d/w Nursing in [place] ; 10/05/16 14:00 DAY UPDATE/EXAM: Nursing reports that pt in control, intermittently resistant to taking Abilify, does evidence residual PI/ persecutory and grandiose delusions to a lesser degree/ on direct exam agrees to comply with depot Abilify and is then accomplished with me present with RN giving injection; pt again responsive to reintegrative support. ASSESSMENT/PLAN: continues to make paced progress; psychosis less acute and may be approaching subacute stability/ no change in meds today but will DC Abilify tomorrow, continue other meds as ordered; anticipate reaching PCP early in week to finalize DC planning. 10/06/16 10:30 DAY ' UPDDATE/EXAM: per Nursing improving course sustained/ on direct exam pt presents as calm, cooperative, conversant; residual circumscribed persecutory and grandiose delusions but stated with less intensity and disruption as reality testing capacity is stronger and more predominant; meds reviewed and DC planning discussed. ASSESSMENT/PLAN: improving entering DC planning phase actively/ no change in meds or management plan; will make speaker phone meeting with safety instruction police officer for PCP tomorrow with whom I made initial contact today - will schedule appointment and discuss terms for pt to be seen post DC and also set DC date from inpt status. 10/07/16 11:00 DAY UPDATE/EXAM: Nursing reorts pt sustaining descriptive gains, c/w cares and meds , is attending selective groups/ on direct exam was calm, conversant, cooperative; did not display any residual psychosis in individual contact or over the phone in speaker phone meeting [facility] safety instruction police officer and other staff at [facility]; scheduled for first outpt appointment on 10/10 @ 09:20; limits set for appropriate behavior in the office during appointments which pt accepted. I also discussed giving pt a letter for Social Security office stating he has capacity to manage his disability check. ASSESSMENT/PLAN: recompensating effectively such that DC date set for 10/09/ no change in meds or management d/w Nursing in [place] 10/07/16 11:35 Objective: Vital Signs Temp Pulse Resp BP Pulse Ox 36.6 C 71 12 108/74 95 10/06/16 06:23 10/06/16 06:23 10/06/16 06:23 10/06/16 06:23 10/06/16 06:23 Laboratory Results 10/01/16 06:00 ICD10 Worksheet Patient Problems: Problems Problem Status Onset Acute psychosis Acute Chest wall pain Acute Knee pain, bilateral Acute Malingering Acute Osteoarthritis Acute
[2016-10-07] MEDS: DOXEPIN HCL 50 MG CAP PO SCH (19:41)
[2016-10-07] MEDS: ZOLPIDEM TARTRATE 5 MG TAB PO PRN (19:43)
[2016-10-07] MEDS: hydrOXYzine HCL 50 MG TAB PO PRN (19:45)
[2016-10-07] MEDS: TRIHEXYPHENIDYL HCL 2 MG TAB PO PRN (23:09)
[2016-10-08] MEDS: MULTIVITAMINS 1 EACH TAB PO SCH (07:49)
[2016-10-08] MEDS: clonazePAM 0.5 MG TAB PO SCH ×2 (07:49→20:01)
[2016-10-08] MEDS: TRIHEXYPHENIDYL HCL 2 MG TAB PO SCH (07:49)
[2016-10-08] MEDS: traMADol 50 MG TAB PO PRN ×3 (07:50→20:03)
[2016-10-08] MEDS: NICOTINE POLACRILEX 2 MG GUM B PRN ×4 (08:26→17:12)
--- NOTE | 2016-10-08 08:47 | SOAPPROG ---
SOAP Progress Note Assessment/Plan: Assessment: Plan: 10/01/16 14:00 DAY ' U[DATE/EXAM: Pt per Nursing remaining in control and c/w cares and meds; still isolative but is taking meals in DR/ on direct exam thought process better organized but with residual PI and persecutory delusions; responsive to reintegrative support; meds changes as referenced d/w pt cooperatively. ASSESSMENT/PLAN: early phase recompensation/ increase Doxepin to 50 mg hs; add Albuterol IH prn, add Artane 2 mg qd at pt's request 10/02/16 09;00 DAY UPDATE/EXAM: Nursing reports pt compliant with cares and meds, in behavioral control, remains relatively isolative but is taking meals in DR, better sleep and ADL attention/ on direct exam pt is calm and conversant; though process better organized b/w residual persecutory delusions and generalized PI. He c/o not receiving disability checks since terminated by [facility] in March, having to panhandle or ?steal money to get by. He agrees with re-establishing community treatment so he can re-activate a payee and obtain money to live on; understands that we will try to activate treatment in the community but not with [facility] which we and pt understand will not accept him back given his h /o aggressivity toward staff and ? property destruction in the past. ASSESSMENT/PLAN: recompensating progress continues/ no change in current meds and management; DC planning in early phase to identify treatment resource in community 10/03/16 11:00 DAY UPDATE/EXAM: Nursing reports continued descriptive progress with behavioral control, improving ADL's, less observable residual psychosis, lessening isolation, c/w cares and meds/ on direct exam pt is calm, cooperative, conversant; delusional thought process more circumscribed; pt agrees to accept depot Abilify on 10/05; also understands his PCP is the one clinician who will work with him post DC for meds management and ? case management services thru her office staff and he accepts this as the primary DC resource; + response to reintegrative support during session. ASSESSMENT/PLAN: progressing with advancing recompensation / no change in meds or management plan; will prescribe depot Abilify 400 mg IM on 10/0510/04/16 08:30 DAY UPDATE/EXAM: Nursing reports pt remains in behavioral control but that he has refused to take last 2 doses of Abilify 5mg; has read about side-effects and concerned about "seizures" which relates to what happened "to me in 1988 after injection of Haldol"/ on direct exam pt remains delusional at less intense and intrusive levle; does agree to take po Abilify and depot injection of Abilify tomorrow; given reassurance his other oral medications as ordered will continue and po Abilify will be dc'd after bid dosings today and tomorrow; generally responsive to reintegrative support during the session. ASSESSMENT/PLAN: residual psychotic acuity but improving in early phase/ no change in current meds and management plan as d/w Nursing in [place] ; 10/05/16 14:00 DAY UPDATE/EXAM: Nursing reports that pt in control, intermittently resistant to taking Abilify, does evidence residual PI/ persecutory and grandiose delusions to a lesser degree/ on direct exam agrees to comply with depot Abilify and is then accomplished with me present with RN giving injection; pt again responsive to reintegrative support. ASSESSMENT/PLAN: continues to make paced progress; psychosis less acute and may be approaching subacute stability/ no change in meds today but will DC Abilify tomorrow, continue other meds as ordered; anticipate reaching PCP early in week to finalize DC planning. 10/06/16 10:30 DAY ' UPDDATE/EXAM: per Nursing improving course sustained/ on direct exam pt presents as calm, cooperative, conversant; residual circumscribed persecutory and grandiose delusions but stated with less intensity and disruption as reality testing capacity is stronger and more predominant; meds reviewed and DC planning discussed. ASSESSMENT/PLAN: improving entering DC planning phase actively/ no change in meds or management plan; will make speaker phone meeting with admitting office escort for PCP tomorrow with whom I made initial contact today - will schedule appointment and discuss terms for pt to be seen post DC and also set DC date from inpt status. 10/07/16 11:00 DAY UPDATE/EXAM: Nursing reports pt sustaining descriptive gains, c/w cares and meds , is attending selective groups/ on direct exam was calm, conversant, cooperative; did not display any residual psychosis in individual contact or over the phone in speaker phone meeting with admitting office escort and other staff at [facility]; scheduled for first outpt appointment on 10/10 @ 09:20; limits set for appropriate behavior in the office during appointments which pt accepted. I also discussed giving pt a letter for Social Security office stating he has capacity to manage his disability check contingent on his maintaining meds compliance and keeping appointments wiht his PCP ASSESSMENT/PLAN: recompensating effectively such that DC date set for 10/09/ no change in meds or management d/w Nursing in [place] 10/08/16 DAY ' UPDATE/EXAM: Objective: Vital Signs Temp Pulse Resp BP Pulse Ox 36.6 C 71 12 108/74 95 10/06/16 06:23 10/06/16 06:23 10/06/16 06:23 10/06/16 06:23 10/06/16 06:23 Laboratory Results 10/01/16 06:00 ICD10 Worksheet Patient Problems: Problems Problem Status Onset Acute psychosis Acute Chest wall pain Acute Knee pain, bilateral Acute Malingering Acute Osteoarthritis Acute
[2016-10-08] MEDS: ALBUTEROL 200 PUFFS/18 GM MDI IH PRN (10:18)
[2016-10-08] MEDS: IBUPROFEN 600 MG TAB PO PRN ×2 (12:23→20:02)
--- NOTE | 2016-10-08 16:20 | SOAPPROG ---
SOAP Progress Note Assessment/Plan: Assessment: Plan: 10/01/16 14:00 DAY ' U[DATE/EXAM: Pt per Nursing remaining in control and c/w cares and meds; still isolative but is taking meals in DR/ on direct exam thought process better organized but with residual PI and persecutory delusions; responsive to reintegrative support; meds changes as referenced d/w pt cooperatively. ASSESSMENT/PLAN: early phase recompensation/ increase Doxepin to 50 mg hs; add Albuterol IH prn, add Artane 2 mg qd at pt's request 10/02/16 09;00 DAY UPDATE/EXAM: Nursing reports pt compliant with cares and meds, in behavioral control, remains relatively isolative but is taking meals in DR, better sleep and ADL attention/ on direct exam pt is calm and conversant; though process better organized b/w residual persecutory delusions and generalized PI. He c/o not receiving disability checks since terminated by [facility] in March, having to panhandle or ?steal money to get by. He agrees with re-establishing community treatment so he can re-activate a payee and obtain money to live on; understands that we will try to activate treatment in the community but not with [facility] which we and pt understand will not accept him back given his h /o aggressivity toward staff and ? property destruction in the past. ASSESSMENT/PLAN: recompensating progress continues/ no change in current meds and management; DC planning in early phase to identify treatment resource in community 10/03/16 11:00 DAY UPDATE/EXAM: Nursing reports continued descriptive progress with behavioral control, improving ADL's, less observable residual psychosis, lessening isolation, c/w cares and meds/ on direct exam pt is calm, cooperative, conversant; delusional thought process more circumscribed; pt agrees to accept depot Abilify on 10/05; also understands his PCP is the one clinician who will work with him post DC for meds management and ? case management services thru her office staff and he accepts this as the primary DC resource; + response to reintegrative support during session. ASSESSMENT/PLAN: progressing with advancing recompensation / no change in meds or management plan; will prescribe depot Abilify 400 mg IM on 10/0510/04/16 08:30 DAY UPDATE/EXAM: Nursing reports pt remains in behavioral control but that he has refused to take last 2 doses of Abilify 5mg; has read about side-effects and concerned about "seizures" which relates to what happened "to me in 1988 after injection of Haldol"/ on direct exam pt remains delusional at less intense and intrusive levle; does agree to take po Abilify and depot injection of Abilify tomorrow; given reassurance his other oral medications as ordered will continue and po Abilify will be dc'd after bid dosings today and tomorrow; generally responsive to reintegrative support during the session. ASSESSMENT/PLAN: residual psychotic acuity but improving in early phase/ no change in current meds and management plan as d/w Nursing in [place] ; 10/05/16 14:00 DAY UPDATE/EXAM: Nursing reports that pt in control, intermittently resistant to taking Abilify, does evidence residual PI/ persecutory and grandiose delusions to a lesser degree/ on direct exam agrees to comply with depot Abilify and is then accomplished with me present with RN giving injection; pt again responsive to reintegrative support. ASSESSMENT/PLAN: continues to make paced progress; psychosis less acute and may be approaching subacute stability/ no change in meds today but will DC Abilify tomorrow, continue other meds as ordered; anticipate reaching PCP early in week to finalize DC planning. 10/06/16 10:30 DAY ' UPDDATE/EXAM: per Nursing improving course sustained/ on direct exam pt presents as calm, cooperative, conversant; residual circumscribed persecutory and grandiose delusions but stated with less intensity and disruption as reality testing capacity is stronger and more predominant; meds reviewed and DC planning discussed. ASSESSMENT/PLAN: improving entering DC planning phase actively/ no change in meds or management plan; will make speaker phone meeting with box office clerk for PCP tomorrow with whom I made initial contact today - will schedule appointment and discuss terms for pt to be seen post DC and also set DC date from inpt status. 10/07/16 11:00 DAY UPDATE/EXAM: Nursing reports pt sustaining descriptive gains, c/w cares and meds , is attending selective groups/ on direct exam was calm, conversant, cooperative; did not display any residual psychosis in individual contact or over the phone in speaker phone meeting with box office clerk and other staff at [facility]; scheduled for first outpt appointment on 10/10 @ 09:20; limits set for appropriate behavior in the office during appointments which pt accepted. I also discussed giving pt a letter for Social Security office stating he has capacity to manage his disability check contingent on his maintaining meds compliance and keeping appointments wiht his PCP ASSESSMENT/PLAN: recompensating effectively such that DC date set for 10/09/ no change in meds or management d/w Nursing in Rounds 10/08/16 08:00 DAY ' UPDATE/EXAM Nursing reports pt stably working thru final phase of preparation for DC/ on direct exam focus on noting syndromal gains, goals aw dc plan, necessity of follow-up compliance with meds and appointments post DC to regain control of his disability checks. ASSESSMENT/PLAN; sustaining gains and becoming ready for DC online for tomorrow AM/no change in meds or management plan; anticipate DC in AM Objective: Vital Signs Temp Pulse Resp BP Pulse Ox 36.6 C 71 12 108/74 95 10/06/16 06:23 10/06/16 06:23 10/06/16 06:23 10/06/16 06:23 10/06/16 06:23 Laboratory Results 10/01/16 06:00 ICD10 Worksheet Patient Problems: Problems Problem Status Onset Acute psychosis Acute Chest wall pain Acute Knee pain, bilateral Acute Malingering Acute Osteoarthritis Acute
[2016-10-08] MEDS: MAG HYDROX/AL HYDROX/SIMETH 30 ML UDCUP PO PRN (18:48)
[2016-10-08] MEDS: DOXEPIN HCL 50 MG CAP PO SCH (20:01)
[2016-10-08] MEDS: ZOLPIDEM TARTRATE 5 MG TAB PO PRN (20:02)
[2016-10-08] MEDS: TRIHEXYPHENIDYL HCL 2 MG TAB PO PRN (20:02)
[2016-10-08] MEDS: hydrOXYzine HCL 50 MG TAB PO PRN (20:02)
[2016-10-09] MEDS: traMADol 50 MG TAB PO PRN ×2 (02:14→08:36)
[2016-10-09 02:17] VITALS: BP 121/65; PULSE 69; TEMP 97.3; O2SAT 93
[2016-10-09] MEDS: NICOTINE POLACRILEX 2 MG GUM B PRN (07:36)
[2016-10-09] MEDS: clonazePAM 0.5 MG TAB PO SCH (07:37)
[2016-10-09] MEDS: TRIHEXYPHENIDYL HCL 2 MG TAB PO SCH (07:37)
[2016-10-09] MEDS: MULTIVITAMINS 1 EACH TAB PO SCH (07:37)
[2016-10-09] MEDS ORDERED: ZOLPIDEM TARTRATE 5 MG TAB PO PRN (12:00)
--- NOTE | 2016-10-09 12:09 | SOAPPROG ---
SOAP Progress Note Assessment/Plan: Assessment: Plan: 10/01/16 14:00 DAY ' U[DATE/EXAM: Pt per Nursing remaining in control and c/w cares and meds; still isolative but is taking meals in DR/ on direct exam thought process better organized but with residual PI and persecutory delusions; responsive to reintegrative support; meds changes as referenced d/w pt cooperatively. ASSESSMENT/PLAN: early phase recompensation/ increase Doxepin to 50 mg hs; add Albuterol IH prn, add Artane 2 mg qd at pt's request 10/02/16 09;00 DAY UPDATE/EXAM: Nursing reports pt compliant with cares and meds, in behavioral control, remains relatively isolative but is taking meals in DR, better sleep and ADL attention/ on direct exam pt is calm and conversant; though process better organized b/w residual persecutory delusions and generalized PI. He c/o not receiving disability checks since terminated by [facility] in March, having to panhandle or ?steal money to get by. He agrees with re-establishing community treatment so he can re-activate a payee and obtain money to live on; understands that we will try to activate treatment in the community but not with [facility] which we and pt understand will not accept him back given his h /o aggressivity toward staff and ? property destruction in the past. ASSESSMENT/PLAN: recompensating progress continues/ no change in current meds and management; DC planning in early phase to identify treatment resource in community 10/03/16 11:00 DAY UPDATE/EXAM: Nursing reports continued descriptive progress with behavioral control, improving ADL's, less observable residual psychosis, lessening isolation, c/w cares and meds/ on direct exam pt is calm, cooperative, conversant; delusional thought process more circumscribed; pt agrees to accept depot Abilify on 10/05; also understands his PCP is the one clinician who will work with him post DC for meds management and ? case management services thru her office staff and he accepts this as the primary DC resource; + response to reintegrative support during session. ASSESSMENT/PLAN: progressing with advancing recompensation / no change in meds or management plan; will prescribe depot Abilify 400 mg IM on 10/0510/04/16 08:30 DAY UPDATE/EXAM: Nursing reports pt remains in behavioral control but that he has refused to take last 2 doses of Abilify 5mg; has read about side-effects and concerned about "seizures" which relates to what happened "to me in 1988 after injection of Haldol"/ on direct exam pt remains delusional at less intense and intrusive levle; does agree to take po Abilify and depot injection of Abilify tomorrow; given reassurance his other oral medications as ordered will continue and po Abilify will be dc'd after bid dosings today and tomorrow; generally responsive to reintegrative support during the session. ASSESSMENT/PLAN: residual psychotic acuity but improving in early phase/ no change in current meds and management plan as d/w Nursing in [place]ounds ; 10/05/16 14:00 DAY UPDATE/EXAM: Nursing reports that pt in control, intermittently resistant to taking Abilify, does evidence residual PI/ persecutory and grandiose delusions to a lesser degree/ on direct exam agrees to comply with depot Abilify and is then accomplished with me present with RN giving injection; pt again responsive to reintegrative support. ASSESSMENT/PLAN: continues to make paced progress; psychosis less acute and may be approaching subacute stability/ no change in meds today but will DC Abilify tomorrow, continue other meds as ordered; anticipate reaching PCP early in week to finalize DC planning. 10/06/16 10:30 DAY ' UPDDATE/EXAM: per Nursing improving course sustained/ on direct exam pt presents as calm, cooperative, conversant; residual circumscribed persecutory and grandiose delusions but stated with less intensity and disruption as reality testing capacity is stronger and more predominant; meds reviewed and DC planning discussed. ASSESSMENT/PLAN: improving entering DC planning phase actively/ no change in meds or management plan; will make speaker phone meeting with patrol community service officer for PCP tomorrow with whom I made initial contact today - will schedule appointment and discuss terms for pt to be seen post DC and also set DC date from inpt status. 10/07/16 11:00 DAY UPDATE/EXAM: Nursing reports pt sustaining descriptive gains, c/w cares and meds , is attending selective groups/ on direct exam was calm, conversant, cooperative; did not display any residual psychosis in individual contact or over the phone in speaker phone meeting with patrol community service officer and other staff at [facility]; scheduled for first outpt appointment on 10/10 @ 09:20; limits set for appropriate behavior in the office during appointments which pt accepted. I also discussed giving pt a letter for Social Security office stating he has capacity to manage his disability check contingent on his maintaining meds compliance and keeping appointments wiht his PCP ASSESSMENT/PLAN: recompensating effectively such that DC date set for 10/09/ no change in meds or management d/w Nursing in [place]ounds 10/08/16 08:00 DAY ' UPDATE/EXAM Nursing reports pt stably working thru final phase of preparation for DC/ on direct exam focus on noting syndromal gains, goals aw dc plan, necessity of follow-up compliance with meds and appointments post DC to regain control of his disability checks. ASSESSMENT/PLAN; sustaining gains and becoming ready for DC online for tomorrow AM/no change in meds or management plan; anticipate DC in AM 10/09/16 12:01 Discharge Note DAY ' UPDATE/EXAM: Meaghan reports pt has remained in good control, c/w cares and meds , socially appropriate altho sustaining his baseline relative isolation/ on direct exam pt presents as calm, cooperative, conversant; thought process concrete, perseverative about plan to gain control of disability checks; progress reviewed in recompensating, meds reviewed, plan for f/u with PCP to sustain meds and obtain Case Management help prn; statement from me declaring pt compentent to manage his own funds and sustaining this capacity contingent on his continuing psychiatric medication compliance post DC; no overt psychosis elicited in the session; sufficiently stable for safe DC today ASSESSMENT/PLAN: DC today Pt to go to Social Security office post dC to clarify how to start receiving checks including back payments owed Homeless initially; banned from [place] but will negotiate wiht friend to live in an RV f/u tomorrow to see PCP at [facility] @ 0900 meds as referenced - given 30 days prescriptions Objective: Vital Signs Temp Pulse Resp BP Pulse Ox 36.3 C 69 12 121/65 H 93 10/09/16 02:16 10/09/16 02:16 10/09/16 02:16 10/09/16 02:16 10/09/16 02:16 Laboratory Results 10/01/16 06:00 ICD10 Worksheet Patient Problems: Problems Problem Status Onset Acute psychosis Acute Chest wall pain Acute Knee pain, bilateral Acute Malingering Acute Osteoarthritis Acute
--- NOTE | 2016-10-09 12:19 | SOAPPROG ---
SOAP Progress Note Assessment/Plan: Assessment: Plan: 10/01/16 14:00 DAY ' U[DATE/EXAM: Pt per Nursing remaining in control and c/w cares and meds; still isolative but is taking meals in DR/ on direct exam thought process better organized but with residual PI and persecutory delusions; responsive to reintegrative support; meds changes as referenced d/w pt cooperatively. ASSESSMENT/PLAN: early phase recompensation/ increase Doxepin to 50 mg hs; add Albuterol IH prn, add Artane 2 mg qd at pt's request 10/02/16 09;00 DAY UPDATE/EXAM: Nursing reports pt compliant with cares and meds, in behavioral control, remains relatively isolative but is taking meals in DR, better sleep and ADL attention/ on direct exam pt is calm and conversant; though process better organized b/w residual persecutory delusions and generalized PI. He c/o not receiving disability checks since terminated by [facility] in March, having to panhandle or ?steal money to get by. He agrees with re-establishing community treatment so he can re-activate a payee and obtain money to live on; understands that we will try to activate treatment in the community but not with [facility] which we and pt understand will not accept him back given his h /o aggressivity toward staff and ? property destruction in the past. ASSESSMENT/PLAN: recompensating progress continues/ no change in current meds and management; DC planning in early phase to identify treatment resource in community 10/03/16 11:00 DAY UPDATE/EXAM: Nursing reports continued descriptive progress with behavioral control, improving ADL's, less observable residual psychosis, lessening isolation, c/w cares and meds/ on direct exam pt is calm, cooperative, conversant; delusional thought process more circumscribed; pt agrees to accept depot Abilify on 10/05; also understands his PCP is the one clinician who will work with him post DC for meds management and ? case management services thru her office staff and he accepts this as the primary DC resource; + response to reintegrative support during session. ASSESSMENT/PLAN: progressing with advancing recompensation / no change in meds or management plan; will prescribe depot Abilify 400 mg IM on 10/0510/04/16 08:30 DAY UPDATE/EXAM: Nursing reports pt remains in behavioral control but that he has refused to take last 2 doses of Abilify 5mg; has read about side-effects and concerned about "seizures" which relates to what happened "to me in 1988 after injection of Haldol"/ on direct exam pt remains delusional at less intense and intrusive levle; does agree to take po Abilify and depot injection of Abilify tomorrow; given reassurance his other oral medications as ordered will continue and po Abilify will be dc'd after bid dosings today and tomorrow; generally responsive to reintegrative support during the session. ASSESSMENT/PLAN: residual psychotic acuity but improving in early phase/ no change in current meds and management plan as d/w Nursing in [place]ounds ; 10/05/16 14:00 DAY UPDATE/EXAM: Nursing reports that pt in control, intermittently resistant to taking Abilify, does evidence residual PI/ persecutory and grandiose delusions to a lesser degree/ on direct exam agrees to comply with depot Abilify and is then accomplished with me present with RN giving injection; pt again responsive to reintegrative support. ASSESSMENT/PLAN: continues to make paced progress; psychosis less acute and may be approaching subacute stability/ no change in meds today but will DC Abilify tomorrow, continue other meds as ordered; anticipate reaching PCP early in week to finalize DC planning. 10/06/16 10:30 DAY UPDATE/EXAM: per Nursing improving course sustained/ on direct exam pt presents as calm, cooperative, conversant; residual circumscribed persecutory and grandiose delusions but stated with less intensity and disruption as reality testing capacity is stronger and more predominant; meds reviewed and DC planning discussed. ASSESSMENT/PLAN: improving entering DC planning phase actively/ no change in meds or management plan; will make speaker phone meeting with office correspondent for PCP tomorrow with whom I made initial contact today - will schedule appointment and discuss terms for pt to be seen post DC and also set DC date from inpt status. 10/07/16 11:00 DAY UPDATE/EXAM: Nursing reports pt sustaining descriptive gains, c/w cares and meds , is attending selective groups/ on direct exam was calm, conversant, cooperative; did not display any residual psychosis in individual contact or over the phone in speaker phone meeting with office correspondent and other staff at [facility]; scheduled for first outpt appointment on 10/10 @ 09:20; limits set for appropriate behavior in the office during appointments which pt accepted. I also discussed giving pt a letter for Social Security office stating he has capacity to manage his disability check contingent on his maintaining meds compliance and keeping appointments wiht his PCP ASSESSMENT/PLAN: recompensating effectively such that DC date set for 10/09/ no change in meds or management d/w Nursing in [place]ounds 10/08/16 08:00 DAY ' UPDATE/EXAM Nursing reports pt stably working thru final phase of preparation for DC/ on direct exam focus on noting syndromal gains, goals aw dc plan, necessity of follow-up compliance with meds and appointments post DC to regain control of his disability checks. ASSESSMENT/PLAN; sustaining gains and becoming ready for DC online for tomorrow AM/no change in meds or management plan; anticipate DC in AM 10/09/16 12:01 Discharge Note DAY ' UPDATE/EXAM: Nursing reports pt has remained in good control, c/w cares and meds , socially appropriate altho sustaining his baseline relative isolation/ on direct exam pt presents as calm, cooperative, conversant; thought process concrete, perseverative about plan to gain control of disability checks; progress reviewed in recompensating, meds Medications Generic Name Dose Route Start Last Admin Trade Name Freq PRN Reason Stop Dose Admin Ibuprofen 600 mg 10/03/16 13:21 10/08/16 20:02 Motrin PO 04/01/17 13:20 600 mg Q6HRS PRN Pain, Inflammatory Trihexyphenidyl HCl 2 mg 10/02/16 09:00 10/09/16 07:37 Trihexyphenidyl Hcl PO 03/31/17 08:59 2 mg DAILY SERGEY Zolpidem Tartrate 10 mg 10/09/16 12:00 Ambien PO 04/07/17 11:59 HS PRN Sleep/Insomnia Albuterol 2 puffs 10/01/16 15:02 10/08/16 10:18 Ventolin Hfa Inhaler IH 03/30/17 15:01 2 puffs Q4 PRN Short of Breath/Dyspnea Clonazepam 0.5 mg 09/30/16 09:00 10/09/16 07:37 Klonopin PO 03/29/17 08:59 0.5 mg BID SERGEY Hydroxyzine HCl 50 mg 09/30/16 09:05 10/08/16 20:02 Hydroxyzine Hcl PO 03/29/17 09:04 50 mg Q6HRS PRN Anxiety Multivitamins 1 each 10/03/16 11:30 10/09/16 07:37 Tab-A-Felipe PO 04/01/17 11:29 1 each DAILY SERGEY Olanzapine 10 mg 09/30/16 01:39 Olanzapine PO 03/29/17 01:38 Q4 PRN AGITATION OR PSYCHOSIS Tramadol HCl 50 mg 09/30/16 11:23 10/09/16 08:36 Ultram PO 03/29/17 11:22 50 mg Q6HRS PRN Pain, Moderate Able to Take PO Abilify Maintenna 400 mg IM - due on 11/03/16 reviewed, plan for f/u with PCP to sustain meds and obtain Case Management help prn; statement from me declaring pt compentent to manage his own funds and sustaining this capacity contingent on his continuing psychiatric medication compliance post DC; no overt psychosis elicited in the session; sufficiently stable for safe DC today ASSESSMENT/PLAN: DC today Pt to go to Social Security office post dC to clarify how to start receiving checks including back payments owed Homeless initially; banned from [place] but will negotiate wiht friend to live in an RV f/u tomorrow to see PCP at [facility] @ 0900 meds as referenced - given 30 days prescriptions Objective: Vital Signs Temp Pulse Resp BP Pulse Ox 36.3 C 69 12 121/65 H 93 10/09/16 02:16 10/09/16 02:16 10/09/16 02:16 10/09/16 02:16 10/09/16 02:16 Laboratory Results 10/01/16 06:00 ICD10 Worksheet Patient Problems: Problems Problem Status Onset Acute psychosis Acute Chest wall pain Acute Knee pain, bilateral Acute Malingering Acute Osteoarthritis Acute
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
== END 2016-10-09 12:55 | disposition home or self-care (01) | DRG 885 ==
LOC: EDUNIT# → BBEH 09-30 00:50
PROVIDERS: ADMIT Psychiatry & Neurology Psychiatry; ATTEND Psychiatry & Neurology Psychiatry
DX: F25.9 Schizoaffective disorder, unspecified (principal); F11.90 Opioid use, unspecified, uncomplicated; F12.10 Cannabis abuse, uncomplicated; F15.90 Other stimulant use, unspecified, uncomplicated; F17.200 Nicotine dependence, unspecified, uncomplicated; B19.20 Unspecified viral hepatitis C without hepatic coma; M17.0 Bilateral primary osteoarthritis of knee; F43.10 Post-traumatic stress disorder, unspecified; Z59.0 Homelessness; Z86.73 Personal history of transient ischemic attack (TIA), and cerebral infarction without residual deficits; G89.29 Other chronic pain
CPT/HCPCS: 80305; G0480; J0401; J3486

== ENCOUNTER 2016-10-12 10:06 | Emergency (ER) | payer OTHER, MEDICAID ==
[2016-10-12 10:13] VITALS: RESP 18; TEMP 98.2
--- NOTE | 2016-10-12 10:34 | EDPHY ---
H & P Time Seen by Provider: 10/12/16 10:22 HPI/ROS: CHIEF COMPLAINT: Insomnia, back pain HISTORY OF PRESENT ILLNESS: Patient is a 55-year-old male with a history of psychiatric disease who presents emergency department with chronic low back pain and insomnia. The patient states he was recently admitted and then discharged from the hospital. He was given a prescription of Ambien 5 mg tablets. He states his insurance does not cover brand name medication. He requests medication for sleep. Patient denies thoughts of wanting to harm himself or others. REVIEW OF SYSTEMS: My complete review of systems is negative except as mentioned in the HPI. Past Medical/Surgical History: Includes respiratory disease, hepatitis-C, CVA,"mild heart attack," , schizophrenia, DVT, chronic pain, osteoarthritis Past surgical history: Denies surgery Social history: Patient is homeless, chronic opiate dependence, nicotine dependence Smoking Status: Former smoker Physical Exam: Vitals noted GENERAL: No acute distress, alert. HEENT: Eyes normal to inspection, normal pharynx, no signs of dehydration. NECK: No thyromegaly, no lymphadenopathy, supple. RESPIRATORY: Clear to auscultation bilaterally, no rales, rhonchi or wheezing. CVS: Regular rate and rhythm, no rubs, murmurs, or gallops. ABDOMEN: Soft, nontender, nondistended, no organomegaly. BACK: Normal to inspection, no CVA tenderness. No spinal tenderness palpation SKIN: Normal color, no rash, warm, dry. No pallor. EXTREMITIES: No pedal edema, no calf tenderness, no Homans sign or cords, no joint swelling. NEURO/PSYCH: Alert and oriented x3, mild pressured speech, normal motor sensory exam. No obvious cranial nerve deficit. Constitutional: Initial Vital Signs Temperature (C) 36.8 C 10/12/16 10:11 Heart Rate 74 10/12/16 10:11 Respiratory Rate 18 10/12/16 10:11 Blood Pressure 135/84 H 10/12/16 10:11 O2 Sat (%) 95 10/12/16 10:11 O2 Delivery Mode Room Air Allergies/Adverse Reactions: penicillin V potassium [From Pen-Vee K] Allergy (Mild, Verified 10/12/16 10:10) GI chlorpromazine HCl [From Thorazine] Allergy (Unknown, Verified 10/12/16 10:10) haloperidol [From Haldol] Allergy (Verified 10/12/16 10:10) haloperidol lactate [From Haldol] Allergy (Verified 10/12/16 10:10) Penicillins Allergy (Verified 10/12/16 10:10) Home Medications: Medication Instructions Recorded Albuterol [Ventolin Hfa Inhaler] 2 puffs IH Q4 PRN #30 mdi 10/09/16 Ibuprofen [Motrin (*)] 600 mg PO Q6HRS PRN #30 tab 10/09/16 Multivitamins [Multivitamin (*)] 1 each PO DAILY #30 tab 10/09/16 OLANZapine [OLANZapine (*)] 10 mg PO Q4 PRN #30 tab 10/09/16 Trihexyphenidyl HCl 2 mg PO ONCE PRN #30 tab 10/09/16 [Trihexyphenidyl 2MG (*)] Zolpidem Tartrate [Ambien 5MG (*)] 10 mg PO HS PRN #60 tab 10/09/16 clonazePAM [Klonopin (*)] 0.5 mg PO BID #60 tab 10/09/16 hydrOXYzine HCL 50 mg PO Q6HRS PRN #30 tab 10/09/16 traMADol [Ultram 50 mg (*)] 50 mg PO Q6HRS PRN #30 tab 10/09/16 Zolpidem Tartrate [Ambien 10 mg] 10 mg PO HS PRN #7 tablet 10/12/16 Medical Decision Making ED Course/Re-evaluation: In the emergency department I discussed options with the patient. The patient will be given Ambien generic medication x1 week. He will follow up with his primary care physician. He is given warnings prior to leaving. He will return with worsening symptoms. Differential Diagnosis: My differential includes but is not limited to insomnia, psychosis, schizophrenia, back contusion, back sprain, back fracture Departure - Departure Disposition: Home, Routine, Self-Care Clinical Impression: Insomnia Qualifiers: Insomnia type: unspecified Qualified Code(s): G47.00 - Insomnia, unspecified Back pain Qualifiers: Back pain location: low back pain Chronicity: chronic Back pain laterality: midline Sciatica presence: without sciatica Qualified Code(s): M54.5 - Low back pain; G89.29 - Other chronic pain Condition: Good Instructions: Insomnia (ED), Back Pain (ED) Additional Instructions: Return with increasing pain, insomnia, fever or any other concerns. Referrals: [facility],. [Clinic] - As per Instructions Prescriptions: Zolpidem Tartrate [Ambien 10 mg] 10 mg PO HS PRN #7 tablet PRN Reason: insomnia
[2016-10-12 10:51] VITALS: BP 136/78; PULSE 88; O2SAT 94
== END 2016-10-12 10:51 | disposition home or self-care (01) ==
DX: G47.00 Insomnia, unspecified (principal); M54.5 Low back pain; Z86.73 Personal history of transient ischemic attack (TIA), and cerebral infarction without residual deficits; Z87.891 Personal history of nicotine dependence

== ENCOUNTER 2016-10-14 13:39 | Emergency (ER) | payer OTHER, MEDICAID ==
[2016-10-14 14:04] VITALS: BP 105/62; PULSE 100; RESP 16; TEMP 98.6; O2SAT 94
--- NOTE | 2016-10-14 14:47 | EDPHY ---
H & P Time Seen by Provider: 10/14/16 14:41 HPI/ROS: CHIEF COMPLAINT: Right hand swelling HISTORY OF PRESENT ILLNESS: 55-year-old [id number] male complaining of 3 days of stable right dorsal hand swelling. No pain. No discoloration. Unknown trauma. No right upper extremity pain or paresthesia. No neck pain. No discoloration. PHYSICAL EXAM (Prior to examination, patient consented to physical exam, hands were washed and my usual and customary physical exam procedures followed) 1) GENERAL: Well-developed, well-nourished, alert and oriented. Appears to be in no acute distress. 2) HEAD: Normocephalic 3) HEENT: Pupils equal, round, reactive to light bilaterally. 4) LUNGS: Breathing comfortably. 5) MUSCULOSKELETAL: Right upper extremity: Brisk pulses are symmetrical. There is minimally appreciable dorsal soft tissue swelling to the right hand with no induration, no erythema, no tenderness, no crepitus, no signs of infection. Negative kanavel sign. Radial ulnar median nerve function are intact and symmetrical. Soft compartments. Normal coloration. 6) SKIN: normal coloration 7) VASCULAR: pulses and cap refill present are brisk 8) NEUROLOGIC: Radial, ulnar, median nerve function intact with no deficits appreciated on exam DIFFERENTIAL DIAGNOSIS: in no particular order including but not limited to fracture, sprain, compartment syndrome, cellulitis, abscess, upper extremity DVT Procedure: Splint A right upper extremity Velcro volar splint was applied by ER driver license technician. After application of the splint I returned and re-examined the patient. The splint was adequately immobilizing the joint and distal to the splint the patient's circulation and sensation were intact. Patient shows no signs of compartment syndrome. Was given orthopedic precautions. Smoking Status: Former smoker Constitutional: Initial Vital Signs Temperature (C) 37 C 10/14/16 13:42 Heart Rate 100 10/14/16 13:42 Respiratory Rate 16 10/14/16 13:42 Blood Pressure 105/62 10/14/16 13:42 O2 Sat (%) 94 10/14/16 13:42 O2 Delivery Mode Room Air Allergies/Adverse Reactions: penicillin V potassium [From Pen-Vee K] Allergy (Mild, Verified 10/12/16 10:10) GI chlorpromazine HCl [From Thorazine] Allergy (Unknown, Verified 10/12/16 10:10) haloperidol [From Haldol] Allergy (Verified 10/12/16 10:10) haloperidol lactate [From Haldol] Allergy (Verified 10/12/16 10:10) Penicillins Allergy (Verified 10/12/16 10:10) Home Medications: Medication Instructions Recorded Albuterol [Ventolin Hfa Inhaler] 2 puffs IH Q4 PRN #30 mdi 10/09/16 Ibuprofen [Motrin (*)] 600 mg PO Q6HRS PRN #30 tab 10/09/16 Multivitamins [Multivitamin (*)] 1 each PO DAILY #30 tab 10/09/16 OLANZapine [OLANZapine (*)] 10 mg PO Q4 PRN #30 tab 10/09/16 Trihexyphenidyl HCl 2 mg PO ONCE PRN #30 tab 10/09/16 [Trihexyphenidyl 2MG (*)] Zolpidem Tartrate [Ambien 5MG (*)] 10 mg PO HS PRN #60 tab 10/09/16 clonazePAM [Klonopin (*)] 0.5 mg PO BID #60 tab 10/09/16 hydrOXYzine HCL 50 mg PO Q6HRS PRN #30 tab 10/09/16 traMADol [Ultram 50 mg (*)] 50 mg PO Q6HRS PRN #30 tab 10/09/16 Zolpidem Tartrate [Ambien 10 mg] 10 mg PO HS PRN #7 tablet 10/12/16 MDM/Departure - [facility] ED Course/Re-evaluation: I think that upper extremity DVT, infection such as cellulitis or abscess, fracture, are a less than likely etiology for the patient's symptoms. I do not think that ultrasonography indicated. Reviewed his x-ray showing no definitive acute osseous abnormality. He has been placed in a Velcro splint. I recommended elevation whenever possible. Recommend follow up with primary care provider. Definitely if he develops upper extremity discoloration, pain, or any other symptoms needs to return to the ER immediately for re-evaluation. - Depart Disposition: Home, Routine, Self-Care Clinical Impression: Swelling of right hand Condition: Good Instructions: Hand Sprain (ED) Additional Instructions: Return to the ER immediately if you experience discoloration, have worsening pain, numbness, tingling, or any other symptoms that concern you. If you received x-rays in the emergency department today, be advised, that ligamentous , tendon, muscular, and other non-bony injury cannot be fully ruled out. Try to keep your affected extremity elevated above the level of your chest, and keep cold packs on the affected area, for the next 48 hours. Referrals: [facility],. [Clinic] - 2-3 days, call for appt.
== END 2016-10-14 15:15 | disposition home or self-care (01) ==
DX: M79.89 Other specified soft tissue disorders (principal); Z87.891 Personal history of nicotine dependence
CPT/HCPCS: 73130; 99283; L3908

== ENCOUNTER 2016-10-14 23:32 | Emergency (ER) | payer OTHER, MEDICAID ==
[2016-10-15 00:30] VITALS: TEMP 97.7
[2016-10-15] MEDS ORDERED: IBUPROFEN 200 MG TAB PO ONE (01:20)
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
[2016-10-15 01:30] VITALS: BP 128/75; PULSE 88; RESP 16; O2SAT 96
== END 2016-10-15 01:28 | disposition home or self-care (01) ==
DX: S63.610A Unspecified sprain of right index finger, initial encounter (principal); F17.200 Nicotine dependence, unspecified, uncomplicated; Z86.73 Personal history of transient ischemic attack (TIA), and cerebral infarction without residual deficits; Y04.0XXA Assault by unarmed brawl or fight, initial encounter

== ENCOUNTER 2016-10-15 19:13 | Emergency (ER) | payer OTHER, MEDICAID ==
[2016-10-15 19:22] VITALS: TEMP 98.4
--- NOTE | 2016-10-15 20:10 | EDPHY ---
H & P Stated Complaint: concern for infection or "tardive dyskinesia" in R hand Time Seen by Provider: 10/15/16 19:24 HPI/ROS: CHIEF COMPLAINT: right index finger complaint, requesting medication to help him sleep HISTORY OF PRESENT ILLNESS: 56-year-old male presents emergency department complaining of right index finger redness and swelling. Patient reports concerns that he has an infection. Patient also is requesting medication to help him sleep. He reports his clonazepam, Ambien and tramadol are not helping. Patient is [id number], he denies numbness or tingling to his hand, he denies fevers or chills. Patient reports he is taking his medications as prescribed. Patient denies trauma. REVIEW OF SYSTEMS: A comprehensive 10 point review of systems is otherwise negative aside from elements mentioned in the history of present illness. Source: Patient Exam Limitations: No limitations - Personal History Current Tetanus/Diphtheria Vaccine: Yes Tetanus Vaccine Date: October 2015 - Medical/Surgical History Hx Asthma: No Hx Chronic Respiratory Disease: Yes Hx Diabetes: No Hx Cardiac Disease: Yes Hx Renal Disease: No Hx Cirrhosis: No Hx Alcoholism: No Hx HIV/AIDS: No Hx Splenectomy or Spleen Trauma: No Other PMH: "respiratory disease from smoking", hep C, CVA , "mild heart attack" at the time of stroke, arthritis, PTSD, BIPOLAR, hx heroin use and carotid aneurysm - Social History Smoking Status: Current some day smoker - Physical Exam Exam: Physical Exam Gen: Alert and Oriented, NAD HEENT: PERRL, moist mucous membranes NECK: no meningismus CV: regular rate and regular rhythm PULM: CTAB, no wheezes ABDOMEN: soft, non tender to palpation, BS present BACK: No CVA tenderness NEURO: Neurologically grossly intact EXTREMITIES: Right index finger with no swelling, no erythema, full active range of motion, 2 point discrimination intact, no break in skin, cap refill less than 2 seconds SKIN: no rash or break in skin on exposed skin PSYCH: answers questions appropriately, very talkative. Constitutional: Initial Vital Signs Temperature (C) 36.9 C 10/15/16 19:19 Heart Rate 83 10/15/16 19:19 Respiratory Rate 14 10/15/16 19:19 Blood Pressure 138/89 H 10/15/16 19:19 O2 Sat (%) 95 07/19/17 19:19 O2 Delivery Mode Room Air Allergies/Adverse Reactions: penicillin V potassium [From Pen-Vee K] Allergy (Mild, Verified 10/14/16 23:43) GI chlorpromazine HCl [From Thorazine] Allergy (Unknown, Verified 10/14/16 23:43) haloperidol [From Haldol] Allergy (Verified 10/14/16 23:43) haloperidol lactate [From Haldol] Allergy (Verified 10/14/16 23:43) Penicillins Allergy (Verified 10/14/16 23:43) Home Medications: Medication Instructions Recorded Ambien 10/16/16 Glucosamine 10/16/16 Hydroxyzine HCl 10/16/16 Zyprexa 10/16/16 traMADol 10/16/16 Medical Decision Making ED Course/Re-evaluation: A 56-year-old male presents complaining of right hand index finger pain and swelling. Patient has a normal finger exam, no evidence of cellulitis, fracture , strain. He has full range of motion of this finger. Patient will be discharged with plans to follow up with his primary care doctor. He is aware Departure - Departure Disposition: Home, Routine, Self-Care Clinical Impression: Difficulty sleeping, Finger pain, right Condition: Good Instructions: Insomnia (ED) Additional Instructions: Take your medications as prescribed. Follow up with [facility] at 1st available appointment. They will need to address your difficulty sleeping. Return to the emergency department for any new symptoms or concerns. Referrals: [facility],. [Clinic] - As per Instructions
[2016-10-15 20:35] VITALS: BP 111/89; PULSE 89; RESP 16; O2SAT 97
== END 2016-10-15 20:35 | disposition home or self-care (01) ==
DX: M79.644 Pain in right finger(s) (principal); G47.00 Insomnia, unspecified; F17.200 Nicotine dependence, unspecified, uncomplicated; Z86.73 Personal history of transient ischemic attack (TIA), and cerebral infarction without residual deficits

== ENCOUNTER → 2016-10-16 | Emergency (ER) | payer OTHER, MEDICAID ==
[~2016-10-16] MED LIST changes: +CHLORDIAZEPOXIDE 25MG PREPK#6 BTL TAKEHOME ONE; -TRIHEXYPHENIDYL HCL 5 MG TAB PO ONE
[2016-10-16 05:57] VITALS: BP 168/81; PULSE 88; RESP 16; TEMP 98.4; O2SAT 95
== END | disposition left against medical advice (07) ==
DX: Z53.21 Procedure and treatment not carried out due to patient leaving prior to being seen by health care provider (principal)

== ENCOUNTER 2016-10-18 17:38 | Emergency (ER) | payer OTHER, MEDICAID ==
[2016-10-18 17:55] VITALS: RESP 16; O2SAT 94
[2016-10-18] MEDS ORDERED: ACETAMINOPHEN 325 MG TAB PO ONE (18:08)
[2016-10-18] MEDS ORDERED: IBUPROFEN 600 MG TAB PO ONE (18:09)
--- NOTE | 2016-10-18 18:14 | EDPHY ---
H & P Time Seen by Provider: 10/18/16 17:41 HPI/ROS: Please disregard this documentation. Instead, refer to the document created at 1899 on the same day. I inadvertently created a 2nd chart for the same visit and the 2nd chart created at 0 accurately reflects this patient's history, exam, course and disposition. Smoking Status: Current some day smoker Constitutional: Initial Vital Signs Temperature (C) 37.3 C 10/18/16 17:50 Heart Rate 86 10/18/16 17:50 Respiratory Rate 16 10/18/16 17:50 Blood Pressure 147/88 H 10/18/16 17:50 O2 Sat (%) 94 10/18/16 17:50 O2 Delivery Mode Room Air Allergies/Adverse Reactions: penicillin V potassium [From Pen-Vee K] Allergy (Mild, Verified 10/14/16 23:43) GI chlorpromazine HCl [From Thorazine] Allergy (Unknown, Verified 10/14/16 23:43) haloperidol [From Haldol] Allergy (Verified 10/14/16 23:43) haloperidol lactate [From Haldol] Allergy (Verified 10/14/16 23:43) Penicillins Allergy (Verified 10/14/16 23:43) Home Medications: Medication Instructions Recorded Ambien 10/16/16 Glucosamine 10/16/16 Hydroxyzine HCl 10/16/16 Zyprexa 10/16/16 traMADol 10/16/16 MDM/Departure - MDM Medications Given: Discontinued Medications Acetaminophen (Tylenol) 975 mg PO EDNOW ONE Stop: 10/18/16 18:09 Last Admin: 10/18/16 19:11 Dose: Not Given Ibuprofen (Motrin) 600 mg PO EDNOW ONE Stop: 10/18/16 18:10 Last Admin: 10/18/16 19:09 Dose: 600 mg - Depart Disposition: Other Psych, Not [place] Clinical Impression: Finger sprain, Psychosis, Schizophrenia Condition: Good Instructions: Finger Sprain (ED) Additional Instructions: Diagnosis: Right 2nd finger sprain 2. Chronic right knee pain Plan: Ibuprofen Tylenol for pain as needed Jovanni tape the right index to middle finger until finger pain improves Follow up with [facility] a Thursday with plan to restart your seroquel or similar medication. Referrals: NONE *PRIMARY CARE P,. [Primary Care Provider] - As per Instructions
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
[2016-10-18 19:38] VITALS: BP 116/88; PULSE 74; TEMP 98.4
== END 2016-10-18 19:20 ==
LOC: EDUNIT# → CED 17:38
DX: S63.630A Sprain of interphalangeal joint of right index finger, initial encounter (principal); F29 Unspecified psychosis not due to a substance or known physiological condition; F20.9 Schizophrenia, unspecified; F17.200 Nicotine dependence, unspecified, uncomplicated; Z86.73 Personal history of transient ischemic attack (TIA), and cerebral infarction without residual deficits; X58.XXXA Exposure to other specified factors, initial encounter

== ENCOUNTER 2016-10-28 21:36 | Emergency (ER) | payer OTHER, MEDICAID ==
[2016-10-28 22:14] VITALS: RESP 16; O2SAT 94
[2016-10-28] MEDS ORDERED: IBUPROFEN 600 MG TAB PO ONE (23:41)
--- NOTE | 2016-10-28 23:47 | EDPHY ---
H & P Smoking Status: Current some day smoker Time Seen by Provider: 10/28/16 23:33 HPI/ROS: CHIEF COMPLAINT: bilateral knee pain HISTORY OF PRESENT ILLNESS: 56-year-old male, well known to this emergency department presents complaining of bilateral knee pain x7 years. Patient denies trauma. He reports both of his knees ache. He denies numbness or tingling in his legs, no weakness in his legs. Patient reports he has schizophrenia. He states he is taking his medications regularly. Patient denies fevers. No urinary symptoms. No other joint complaints. (Keyanna Hammond) Physical Exam: GEN: Awake, alert, oriented, no acute distress RESP: nl resp effort MSK: Full active range of motion of bilateral knees, no swelling, no break in skin sensation intact to light touch, cap refill less than 2 seconds, 2+ pedal pulses. Normal steady gait without a limp, normal ligamentous exam. SKIN: No break in skin (Keyanna Hammond) Constitutional: Initial Vital Signs Temperature (C) 36.9 C 10/28/16 21:40 Heart Rate 93 10/28/16 21:40 Respiratory Rate 16 10/28/16 21:40 Blood Pressure 120/86 H 10/28/16 21:40 O2 Sat (%) 94 10/28/16 21:40 O2 Delivery Mode Room Air Allergies/Adverse Reactions: penicillin V potassium [From Pen-Vee K] Allergy (Mild, Verified 10/14/16 23:43) GI chlorpromazine HCl [From Thorazine] Allergy (Unknown, Verified 10/14/16 23:43) haloperidol [From Haldol] Allergy (Verified 10/14/16 23:43) haloperidol lactate [From Haldol] Allergy (Verified 10/14/16 23:43) Penicillins Allergy (Verified 10/14/16 23:43) Home Medications: Medication Instructions Recorded Glucosamine 10/16/16 traMADol 10/16/16 Clonazepam 10/28/16 Seroquel 10/28/16 MDM/Departure - MDM Medications Given: Discontinued Medications Ibuprofen (Motrin) 600 mg PO EDNOW ONE Stop: 10/28/16 23:42 Last Admin: 10/28/16 23:57 Dose: 600 mg ED Course/Re-evaluation: PHYSICIAN DOCUMENTATION: The patient was evaluated and managed by the Physician Swimming Pool Salesperson. My co- signature indicates that I have reviewed this chart and I agree with the findings and plan of care as documented. I am the secondary supervising physician. (Halle Li) - Depart Disposition: Home, Routine, Self-Care Clinical Impression: Bilateral chronic knee pain Condition: Good Instructions: Chronic Pain (ED), Knee Pain (ED) Additional Instructions: Rest, ice, elevate, take 600 mg of ibuprofen every 8 hours with food for 3-5 days as needed for pain. Follow up with orthopedist for symptoms that are not improving in the next 10-14 days. Return to the emergency department for any fevers, weakness, new symptoms or concerns. Referrals: Hunter Kuhn MD [Medical Doctor] - As per Instructions (Orthopedist on-call)
[2016-10-29 00:27] VITALS: BP 129/90; PULSE 89; TEMP 98.2
== END 2016-10-29 00:03 | disposition home or self-care (01) ==
LOC: EDUNIT#
DX: M25.561 Pain in right knee (principal); M25.562 Pain in left knee; G89.29 Other chronic pain

== ENCOUNTER 2016-11-04 18:20 | Emergency (ER) | payer OTHER, MEDICAID ==
[2016-11-04 18:29] VITALS: BP 126/68; PULSE 91; RESP 16; TEMP 98.2; O2SAT 94
--- NOTE | 2016-11-04 18:33 | EDPHY ---
H & P Stated Complaint: CHRONIC Bilateral Kneep pain. 10am toradol( double dose) not working. - Personal History Current Tetanus/Diphtheria Vaccine: Yes Current Tetanus Diphtheria and Acellular Pertussis (TDAP): Yes Tetanus Vaccine Date: October 2015 - Medical/Surgical History Hx Asthma: No Hx Chronic Respiratory Disease: Yes Hx Diabetes: No Hx Cardiac Disease: Yes Hx Renal Disease: No Hx Cirrhosis: No Hx Alcoholism: No Hx HIV/AIDS: No Hx Splenectomy or Spleen Trauma: No Other PMH: "respiratory disease from smoking", hep C, CVA , "mild heart attack" at the time of stroke, arthritis, PTSD, BIPOLAR, hx heroin use and carotid aneurysm - Social History Smoking Status: Current some day smoker Time Seen by Provider: 11/04/16 18:27 HPI/ROS: Chief complaint: Knee pain History of present illness: This is a 56-year-old male who presents to the emergency department for knee pain. Patient reports a long history of knee pain. It is persistent and not controlled with home medications. There is nothing new or different today as compared to prior episodes. No history of recent trauma. No skin changes. No abnormal coolness or paresthesias in the leg. No fevers. He is still ambulating on his own. (Sathish Acevedo) - Physical Exam Exam: General: Alert, nontoxic Skin: No abnormal lesions to the lower extremities bilaterally Musculoskeletal: No tenderness to the lower extremities. He is flexing extending both knees well. He is ambulating on his own. Vascular: DP and PT pulses 2+. Neurologic: Sensation appears intact throughout both lower extremities (Sathish Acevedo) Constitutional: Initial Vital Signs Temperature (C) 36.8 C 11/04/16 18:26 Heart Rate 91 11/04/16 18:26 Respiratory Rate 16 11/04/16 18:26 Blood Pressure 126/68 H 11/04/16 18:26 O2 Sat (%) 94 11/04/16 18:26 O2 Delivery Mode Room Air Allergies/Adverse Reactions: penicillin V potassium [From Pen-Vee K] Allergy (Mild, Verified 10/14/16 23:43) GI chlorpromazine HCl [From Thorazine] Allergy (Unknown, Verified 10/14/16 23:43) haloperidol [From Haldol] Allergy (Verified 10/14/16 23:43) haloperidol lactate [From Haldol] Allergy (Verified 10/14/16 23:43) Penicillins Allergy (Verified 10/14/16 23:43) Home Medications: Medication Instructions Recorded Glucosamine 10/16/16 traMADol 10/16/16 Clonazepam 10/28/16 Seroquel 10/28/16 Medical Decision Making ED Course/Re-evaluation: Patient seen under the supervision of my secondary supervising physician Dr. Jamie Pascual. Patient presents to the emergency department for persistent bilateral knee pain. He has been seen in this emergency department multiple times for this problem. There is nothing new or different today as compared to prior episodes. His legs are neurovascularly intact. Knees are unremarkable without significant findings on physical exam. He is discharged. Asked to follow up with primary a care doctor for recheck. Return precautions are given. (Sathish Acevedo) I did not see this patient while he was in the emergency department. However his care was discussed with the PA while the patient was in the department. I agree with treatment plan and management (Jamie Pascual S) Departure - Departure Disposition: Home, Routine, Self-Care Clinical Impression: Knee pain, bilateral Condition: Good Instructions: Knee Pain (ED) Additional Instructions: Follow-up with the primary care doctor or orthopedics for continued evaluation and care If symptoms worsen or new symptoms develop return to the emergency room for recheck Referrals: NONE *PRIMARY CARE P,. [Primary Care Provider] - As per Instructions [facility],. [Clinic] - As per Instructions Marbin Sanchez MD [Medical Doctor] - As per Instructions
== END 2016-11-04 18:44 | disposition home or self-care (01) ==
LOC: EDUNIT#
DX: M25.561 Pain in right knee (principal); M25.562 Pain in left knee; F17.200 Nicotine dependence, unspecified, uncomplicated; Z86.73 Personal history of transient ischemic attack (TIA), and cerebral infarction without residual deficits

== ENCOUNTER 2016-11-09 08:54 | Emergency (ER) | payer OTHER, MEDICAID ==
[2016-11-09 08:58] VITALS: BP 129/77; PULSE 78; RESP 18; TEMP 97.5; O2SAT 94
--- NOTE | 2016-11-09 09:45 | EDPHY ---
H & P Time Seen by Provider: 11/09/16 09:09 HPI/ROS: CHIEF COMPLAINT: Bilateral knee pain HISTORY OF PRESENT ILLNESS: 56-year-old male history of bilateral knee pain for several years. He was seen emergency department recently for 5 days ago for same complaint. He denies acute symptoms. Today is Thursday. He is planning on calling the orthopedic surgery referral tomorrow (Thursday). He is able to bear weight. He denies: Discoloration, fever, chills, flu-like symptoms, trauma, instability. PHYSICAL EXAM (Prior to examination, patient consented to physical exam, hands were washed and my usual and customary physical exam procedures followed) 1) GENERAL: Well-developed, well-nourished, alert and oriented. Appears to be in no acute distress. 2) HEAD: Normocephalic 3) HEENT: Pupils equal, round, reactive to light bilaterally. 4) LUNGS: Breathing comfortably. 5) MUSCULOSKELETAL: Exam of the bilateral knee shows normal coloration. Positive crepitus bilaterally. No pain with axial loading. No effusion. Normal coloration. Normal temperature. . Compartments are soft. 6) SKIN: Normal coloration bilaterally 7) VASCULAR: DP,PT pulses and cap refill present and brisk distally bilaterally DIFFERENTIAL DIAGNOSIS: in no particular order including but not limited to fracture, sprain, compartment syndrome, septic arthritis, DVT MEDICAL DECISION MAKING Serial evaluations performed on patient. I do not think that emergent x-ray or MRI indicated however I have recommended follow-up with orthopedics and he is agreeable with this. He already has this follow-up information. He has requested opiates which have declined. He agrees to ibuprofen 600 mg. Given my usual and customary NSAID precautions and instructions. Doubt DVT. Doubt septic arthritis. Doubt compartment syndrome. Smoking Status: Current some day smoker Constitutional: Initial Vital Signs Temperature (C) 36.4 C 11/09/16 08:56 Heart Rate 78 11/09/16 08:56 Respiratory Rate 18 11/09/16 08:56 Blood Pressure 129/77 H 11/09/16 08:56 O2 Sat (%) 94 11/09/16 08:56 O2 Delivery Mode Room Air Allergies/Adverse Reactions: penicillin V potassium [From Pen-Vee K] Allergy (Mild, Verified 11/09/16 08:55) GI chlorpromazine HCl [From Thorazine] Allergy (Unknown, Verified 11/09/16 08:55) haloperidol [From Haldol] Allergy (Verified 11/09/16 08:55) haloperidol lactate [From Haldol] Allergy (Verified 11/09/16 08:55) Penicillins Allergy (Verified 11/09/16 08:55) Home Medications: Medication Instructions Recorded Glucosamine 10/16/16 traMADol 10/16/16 Clonazepam 10/28/16 Seroquel 10/28/16 Ibuprofen [Motrin (*)] 600 mg PO Q6 #15 tab 11/09/16 MDM/Departure - Depart Disposition: Home, Routine, Self-Care Clinical Impression: Knee pain, bilateral Condition: Good Instructions: Knee Sprain (ED) Additional Instructions: Return to the ER immediately if you experience discoloration, have worsening pain, numbness, tingling, or any other symptoms that concern you. If you received x-rays in the emergency department today, be advised, that ligamentous , tendon, muscular, and other non-bony injury cannot be fully ruled out. Try to keep your affected extremity elevated above the level of your chest, and keep cold packs on the affected area, for the next 48 hours. Prescriptions: Ibuprofen [Motrin (*)] 600 mg PO Q6 #15 tab Referrals: Marbin Sanchez MD [Medical Doctor] - 1-2 days without fail
== END 2016-11-09 09:51 | disposition home or self-care (01) ==
DX: M25.561 Pain in right knee (principal); M25.562 Pain in left knee; F17.200 Nicotine dependence, unspecified, uncomplicated

== ENCOUNTER 2016-11-11 18:51 | Emergency (ER) | payer OTHER, MEDICAID ==
[2016-11-11 19:00] VITALS: TEMP 98.1
--- NOTE | 2016-11-11 20:00 | EDPHY ---
H & P Time Seen by Provider: 11/11/16 19:44 HPI/ROS: CHIEF COMPLAINT: Paresthesias right upper extremity HISTORY OF PRESENT ILLNESS: 56-year-old male presents to the emergency department with paresthesias to the right upper extremity that has been present for several weeks. He denies any known trauma or injury. Has had these symptoms in the past. He denies pain with movement of his hand. He denies pain in his elbow or shoulder. Denies chest pain or difficulty breathing. REVIEW OF SYSTEMS: Constitutional: No fever, no chills. Eyes: No double or blurry vision. ENT: No sore throat. Respiratory: No cough, no shortness of breath. Cardiac: No chest pain. Gastrointestinal: No abdominal pain, vomiting or diarrhea. Genitourinary: No dysuria. Musculoskeletal: No neck or back pain. Skin: No rashes. Neurological: No headache. Past Medical/Surgical History: Hepatitis-C, CVA, mi, PTSD, bipolar, heroin abuse, carotid aneurysm Social History: Homeless Smoking Status: Current some day smoker Physical Exam: General Appearance: Alert, no distress. Normal gait. No apparent distress. Eyes: Pupils equal and round. Extraocular motions are all intact. ENT: Mouth: Mucous membranes moist. Respiratory: No wheezing, rhonchi, or rales, lungs are clear to auscultation. Cardiovascular: Regular rate and rhythm. Gastrointestinal: Abdomen is soft and nontender, no masses, no rebound or guarding, bowel sounds normal. Neurological: Alert and oriented x 3, cranial nerves II through XII grossly intact Skin: Warm and dry, no rashes. Musculoskeletal: Nontender to palpate along the cervical, thoracic or lumbar spine. Neck is supple. Extremities: Full range of motion and no peripheral edema. No swelling to upper or lower extremities. Full range of motion of his fingers. No weakness in hands bilaterally. Psychiatric: Patient is oriented X 3, there is no agitation. Constitutional: Initial Vital Signs Temperature (C) 36.7 C 11/11/16 18:58 Heart Rate 85 11/11/16 18:58 Respiratory Rate 18 11/11/16 18:58 Blood Pressure 114/91 H 11/11/16 18:58 O2 Sat (%) 95 11/11/16 18:58 O2 Delivery Mode Room Air Allergies/Adverse Reactions: penicillin V potassium [From Pen-Vee K] Allergy (Mild, Verified 11/11/16 18:57) GI chlorpromazine HCl [From Thorazine] Allergy (Unknown, Verified 11/11/16 18:57) haloperidol [From Haldol] Allergy (Verified 11/11/16 18:57) haloperidol lactate [From Haldol] Allergy (Verified 11/11/16 18:57) Penicillins Allergy (Verified 11/11/16 18:57) Home Medications: Medication Instructions Recorded Glucosamine 10/16/16 traMADol 10/16/16 Clonazepam 10/28/16 Seroquel 10/28/16 Ibuprofen [Motrin (*)] 600 mg PO Q6 #15 tab 11/09/16 Medical Decision Making ED Course/Re-evaluation: 56-year-old homeless male presents with paresthesias in the right hand intermittently for weeks. He has no focal neurologic findings. He has a normal gait. No weakness in hands. He has had these symptoms in the past. I encouraged close follow-up with primary care provider. We did discuss neuropathy in the use of gabapentin which she will discussed with primary care provider. I do not think any imaging studies are indicated. This was discussed with the patient and he verbalized understanding and agreed. Differential Diagnosis: Including but not limited to neuropathy, electrolyte abnormality, cellulitis, CVA Departure - Departure Disposition: Home, Routine, Self-Care Clinical Impression: Neuropathy Condition: Good Instructions: Paresthesia (ED) Additional Instructions: Follow up with your primary care provider or the primary care provider that has been provided for you as discussed this week. Return to the emergency department if you developed weakness in your upper extremity, increasing pain or any other concerns. Referrals: Benjamin Melo MD [Medical Doctor] - 1-2 days without fail (Primary care provider home demonstration agent)
[2016-11-12 06:44] VITALS: BP 118/67; PULSE 75; RESP 16; O2SAT 96
== END 2016-11-11 20:08 | disposition home or self-care (01) ==
DX: G62.9 Polyneuropathy, unspecified (principal); F17.200 Nicotine dependence, unspecified, uncomplicated; Z86.73 Personal history of transient ischemic attack (TIA), and cerebral infarction without residual deficits

== ENCOUNTER 2016-11-12 09:25 | Emergency (ER) | payer OTHER, MEDICAID ==
[2016-11-12 09:36] VITALS: TEMP 97.9
--- NOTE | 2016-11-12 09:44 | CPEKG ---
Heart Rate: 99 RR Interval: 606 P-R Interval: 148 QRSD Interval: 122 QT Interval: 372 QTC Interval: 478 P Harrah: 83 QRS Harrah: 105 T Wave Harrah: 35 EKG Severity - ABNORMAL ECG - EKG Impression: SINUS RHYTHM EKG Impression: RBBB AND LPFB Electronically Signed By: Jamie Pascual 12-Nov-2016 16:10:29
[2016-11-12] MEDS ORDERED: NS 1,000 ML IV ONE (09:49)
--- NOTE | 2016-11-12 10:09 | EDPHY ---
H & P Time Seen by Provider: 11/12/16 09:55 HPI/ROS: Chief complaint. Chest pain HPI. 56-year-old male well-known to the emergency department with multiple visits and seen yesterday for hand paresthesias. Today presents with mild chest pain that began when [place] [employer] [facility] was questioning the patient about 1 hour ago. He notes mid chest discomfort that is tender to push on. No shortness of breath. No change with exertion or breathing. He also complains of chronic right shoulder pain and headache. No fever cough. Denies drugs or alcohol. ROS Constitutional. no fever/chills, no weakness Eyes. no problems with vision ENT. no sore throat, no nasal drainage Cardiovascular. Chest pain Respiratory. no shortness of breath, no cough Abdominal. no abdominal pain, no nausea/vomiting, no diarrhea . no problems urinating MS. no calf pain/swelling, no neck/back pain, chronic right shoulder pain Skin. no rash Lymph. no swollen glands Neuro. headache, no dizziness, no difficulty walking or with speech Past Medical/Surgical History: Past medical history significant for hep C, CVA, heart attack, PTSD, bipolar, carotid aneurysm Social History: Single, daily smoker, no alcohol Smoking Status: Current some day smoker Physical Exam: General Appearance: Alert well-developed male mild distress vital signs significant for initial blood pressure 80/60 Eyes: Pupils equal and round no pallor or injection. ENT, Mouth: Mucous membranes are moist. Respiratory: There are no retractions, lungs are clear to auscultation. Cardiovascular: Regular rate and rhythm. Gastrointestinal: Abdomen is soft and nontender, no masses, bowel sounds normal. Neurological: Awake and alert, sensory and motor exams grossly normal. Skin: Warm and dry, no rashes. Musculoskeletal: Neck is supple nontender. Extremities symmetrical, full range of motion. Psychiatric: Patient is oriented X 3, there is no agitation. Constitutional: Initial Vital Signs Temperature (C) 36.6 C 11/12/16 09:33 Heart Rate 96 11/12/16 09:33 Respiratory Rate 18 11/12/16 09:33 Blood Pressure 80/60 L 11/12/16 09:33 O2 Sat (%) 90 L 11/12/16 09:33 O2 Delivery Mode Room Air Allergies/Adverse Reactions: penicillin V potassium [From Pen-Vee K] Allergy (Mild, Verified 11/11/16 18:57) GI chlorpromazine HCl [From Thorazine] Allergy (Unknown, Verified 11/11/16 18:57) haloperidol [From Haldol] Allergy (Verified 11/11/16 18:57) haloperidol lactate [From Haldol] Allergy (Verified 11/11/16 18:57) Penicillins Allergy (Verified 11/11/16 18:57) Home Medications: Medication Instructions Recorded Glucosamine 10/16/16 traMADol 10/16/16 Clonazepam 10/28/16 Seroquel 10/28/16 Ibuprofen [Motrin (*)] 600 mg PO Q6 #15 tab 11/09/16 Medical Decision Making - Diagnostics EKG Interpretation: EKG interpreted by me shows normal sinus rhythm with normal interval there is both right bundle and left posterior fascicular block. No significant ST elevation or depression. No arrhythmia. The rate is 99. EKG is not changed from previous EKG 09/05/2016 repeat EKG is unchanged. Imaging Results: Imaging Impressions Chest/Thorax CTA 11/12/16 11:48 Impression: 1. No evidence of thrombopulmonary embolic disease. 2. Clear lungs except for mild airways disease. 3. Partially visualized right subclavian artery aneurysm. Findings discussed with Emergency Department physician, Jamie Pascual on [address] chest shows no evidence for pulmonary embolus Procedures: IV normal saline, monitor. Because of the low blood pressure he will be given 2 L of saline. Patient's D-dimer was high. I recommended chest CT which the patient agrees to On re-evaluation patient is stable and really without complaints other than he is hungry. Serial troponins and EKGs are unchanged ED Course/Re-evaluation: After 1 L of saline repeat blood pressure is 104/70 2nd troponin is normal. re-check at 1:45 p.m.. Patient is stable. He no longer has any chest discomfort any complaints other than he is hungry and would like a sandwich. Patient and I discussed imaging lab results and EKG findings. We discussed treatment plan including criteria for return importance of follow-up and further evaluation. He expresses understanding and agreement Differential Diagnosis: I considered acute coronary syndrome. He is tender on his chest with palpation. His D-dimer was elevated I considered aortic dissection as well as pulmonary embolus. - Data Points Laboratory Results: Laboratory Results 11/12/16 09:45 11/12/16 09:45 11/12/16 11/12/16 11/12/16 12:05 09:45 09:45 WBC RBC Hgb Hct MCV MCH MCHC RDW Plt Count MPV Neut % (Auto) Lymph % (Auto) Fergus % (Auto) Eos % (Auto) Baso % (Auto) Nucleat RBC Rel Count Absolute Neuts (auto) Absolute Lymphs (auto) Absolute Monos (auto) Absolute Eos (auto) Absolute Basos (auto) Absolute Nucleated RBC Immature Gran % Immature Gran # D-Dimer 0.87 ug/mLFEU H ug/mLFEU (0.00-0.50) Sodium 134 mEq/L mEq/L (134-144) Potassium 3.6 mEq/L mEq/L (3.5-5.2) Chloride 102 mEq/L mEq/L (97-110) Carbon Dioxide 22 mEq/l mEq/l (22-31) Anion Gap 10 mEq/L mEq/L (8-16) BUN 13 mg/dL mg/dL (7-23) Creatinine 1.0 mg/dL mg/dL (0.7-1.3) Estimated GFR > 60 Glucose 110 mg/dL H mg/dL (70-100) Calcium 9.0 mg/dL mg/dL (8.5-10.4) Troponin I 0.014 ng/mL ng/mL < 0.012 ng/mL ng/mL (0.000-0.034) (0.000-0.034) 11/12/16 09:45 WBC 5.07 10^3/uL 10^3/uL (3.80-9.50) RBC 5.07 10^6/uL 10^6/uL (4.40-6.38) Hgb 14.6 g/dL g/dL (13.7-17.5) Hct 42.9 % % (40.0-51.0) MCV 84.6 fL fL (81.5-99.8) MCH 28.8 pg pg (27.9-34.1) MCHC 34.0 g/dL g/dL (32.4-36.7) RDW 13.8 % % (11.5-15.2) Plt Count 231 10^3/uL 10^3/uL (150-400) MPV 9.1 fL fL (8.7-11.7) Neut % (Auto) 74.5 % H % (39.3-74.2) Lymph % (Auto) 9.9 % L % (15.0-45.0) Fergus % (Auto) 11.0 % % (4.5-13.0) Eos % (Auto) 3.2 % % (0.6-7.6) Baso % (Auto) 0.8 % % (0.3-1.7) Nucleat RBC Rel Count 0.0 % % (0.0-0.2) Absolute Neuts (auto) 3.78 10^3/uL 10^3/uL (1.70-6.50) Absolute Lymphs (auto) 0.50 10^3/uL L 10^3/uL (1.00-3.00) Absolute Monos (auto) 0.56 10^3/uL 10^3/uL (0.30-0.80) Absolute Eos (auto) 0.16 10^3/uL 10^3/uL (0.03-0.40) Absolute Basos (auto) 0.04 10^3/uL 10^3/uL (0.02-0.10) Absolute Nucleated RBC 0.00 10^3/uL 10^3/uL (0-0.01) Immature Gran % 0.6 % % (0.0-1.1) Immature Gran # 0.03 10^3/uL 10^3/uL (0.00-0.10) D-Dimer Sodium Potassium Chloride Carbon Dioxide Anion Gap BUN Creatinine Estimated GFR Glucose Calcium Troponin I Medications Given: Discontinued Medications Sodium Chloride (Ns) 1,000 mls @ 0 mls/hr IV ONCE ONE PRN Reason: Wide Open Stop: 11/12/16 09:50 Last Admin: 11/12/16 09:51 Dose: 1,000 mls Departure - Departure Disposition: Home, Routine, Self-Care Clinical Impression: Chest wall pain Condition: Good Instructions: Chest Wall Pain (ED) Additional Instructions: May use Tylenol as needed for discomfort. Return for worsening symptoms. Make an appointment to follow up with [facility] in the next 2-3 days. Referrals: NONE *PRIMARY CARE P,. [Primary Care Provider] - As per Instructions [facility] [Outside] - 2-3 days without fail
[2016-11-12 10:16] LABS: % IMMATURE GRANULYOCYTES 0.6 % (0.0-1.1); ABSOLUTE IMMATURE GRANULOCYTES 0.03 10^3/uL (0.00-0.10); ADD DIFF? NO; ADD MORPH? NO; ADD SCAN? NO; ATYPICAL LYMPHOCYTE FLAG 0 (0-99); FRAGMENT RBC FLAG 0 (0-99); HEMATOCRIT 42.9 % (40.0-51.0); HEMOGLOBIN 14.6 g/dL (13.7-17.5); LEFT SHIFT FLG 0 (0-99); LIPEMIA HEMOLYSIS FLAG 90 (0-99); MEAN CELL HEMOGLOBIN 28.8 pg (27.9-34.1); MEAN CELL VOLUME 84.6 fL (81.5-99.8); MEAN PLATELET VOLUME 9.1 fL (8.7-11.7); PLATELET CLUMPS FLAG 0 (0-99); PLATELET COUNT 231 10^3/uL (150-400); RED BLOOD CELL COUNT 5.07 10^6/uL (4.40-6.38); RED CELL DISTRIBUTION WIDTH 13.8 % (11.5-15.2)
[2016-11-12 10:22] LABS: ANION GAP 10 mEq/L (8-16); CARBON DIOXIDE 22 mEq/l (22-31); CHLORIDE 102 mEq/L (97-110); GLOMERULAR FILTRATION RATE > 60; GLUCOSE 110 mg/dL (70-100); POTASSIUM 3.6 mEq/L (3.5-5.2); SODIUM 134 mEq/L (134-144)
[2016-11-12 10:33] LABS: TROPONIN I < 0.012 ng/mL (0.000-0.034)
[2016-11-12 11:45] VITALS: BP 111/73; PULSE 96; RESP 16; O2SAT 96
[2016-11-12] MEDS ORDERED: IOPAMIDOL (ISOVUE 370) 100 ML BTL IV ONE (11:53)
--- NOTE | 2016-11-13 11:30 | CPEKG ---
Heart Rate: 87 RR Interval: 690 P-R Interval: 176 QRSD Interval: 132 QT Interval: 396 QTC Interval: 477 P Truro: 76 QRS Truro: 102 T Wave Truro: 43 EKG Severity - ABNORMAL ECG - EKG Impression: SINUS RHYTHM EKG Impression: RBBB Electronically Signed By: Chema Traore 15-Nov-2016 08:15:43
== END 2016-11-12 14:11 | disposition home or self-care (01) ==
LOC: EDUNIT#
DX: R07.89 Other chest pain (principal); F17.200 Nicotine dependence, unspecified, uncomplicated; Z86.73 Personal history of transient ischemic attack (TIA), and cerebral infarction without residual deficits
CPT/HCPCS: 71275; 93005; 96360; 99285; Q9967

== ENCOUNTER 2016-11-26 13:58 | Emergency (ER) | payer OTHER, MEDICAID ==
[2016-11-26 14:05] VITALS: BP 97/62; PULSE 90; RESP 18; TEMP 97.5; O2SAT 94
== END 2016-11-26 14:53 | disposition left against medical advice (07) ==
DX: Z53.21 Procedure and treatment not carried out due to patient leaving prior to being seen by health care provider (principal)

== ENCOUNTER 2016-11-26 15:04 | Emergency (ER) | payer OTHER, MEDICAID ==
[2016-11-26 15:08] VITALS: BP 110/71; PULSE 89; RESP 18; TEMP 98.6; O2SAT 94
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
[2016-11-26] MEDS ORDERED: IBUPROFEN 600 MG TAB PO ONE (15:36)
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
== END 2016-11-26 16:02 | disposition home or self-care (01) ==
DX: Z03.6 Encounter for observation for suspected toxic effect from ingested substance ruled out (principal); F17.200 Nicotine dependence, unspecified, uncomplicated

== ENCOUNTER 2017-12-02 21:43 | Emergency (ER) | payer OTHER, MEDICAID ==
[2017-12-02 21:49] VITALS: BP 121/92
[2017-12-02] MEDS ORDERED: MAG HYDROX/AL HYDROX/SIMETH 30 ML UDCUP PO ONE (22:12)
--- NOTE | 2017-12-02 22:14 | EDPHY ---
H & P Stated Complaint: "multiple complaints", chronic knee pain, "kidney pain", breathing problems Time Seen by Provider: 12/02/17 22:02 HPI/ROS: HPI The patient presents with multiple complaints including most prominently bilateral knee pain that has prevented him from sleeping tonight. He has been taking Tylenol No. 3, 3-4 a day as prescribed by his primary care physician. He says he is not taking any NSAIDs because he feels they do not help him. He was lying in bed tonight and because of pain he came in. He is also complaining of nausea without vomiting which he attributes to taking the Tylenol. He has been following up with a primary care physician at [facility] regularly. We had seen him very frequently in the emergency department until about 1 year ago. He does ask for referral to a methadone clinic and he wonders if methadone would be the right medication for him to take. He says he has been compliant with his other medications. He denies any SI or HI. REVIEW OF SYSTEMS Constitutional: No fever, no chills. Eyes: No discharge. ENT: No sore throat. Cardiovascular: No chest pain, no palpitations. Respiratory: No cough, no shortness of breath. Gastrointestinal: No abdominal pain, no vomiting. Genitourinary: No hematuria. Musculoskeletal: No back pain. Skin: No rashes. Neurological: No headache. PMHx: Bilateral osteoarthritis of his knees, hepatitis-C, prior drug use, followed at [facility] Soc Hx: Currently sleeps in his plan PHYSICAL General Appearance: Alert, no distress Eyes: Pupils equal and round no pallor or injection ENT, Mouth: Mucous membranes moist Respiratory: There are no retractions, lungs are clear to auscultation Cardiovascular: Regular rate and rhythm Gastrointestinal: Abdomen is soft and non-tender, no masses, bowel sounds normal Neurological: A&O, moves all extremities Skin: Warm and dry, no rashes Musculoskeletal: Neck is supple non tender Extremities: Both knees with crepitus on palpation with range of motion, there is no effusion, there is limited flexion secondary to pain bilaterally Psychiatric: Patient is oriented X 3, there is no agitation Source: Patient Exam Limitations: No limitations - Personal History Current Tetanus Diphtheria and Acellular Pertussis (TDAP): Yes Tetanus Vaccine Date: October 2015 - Medical/Surgical History Hx Asthma: No Hx Chronic Respiratory Disease: Yes Hx Diabetes: No Hx Cardiac Disease: Yes Hx Renal Disease: No Hx Cirrhosis: No Hx Alcoholism: No Hx HIV/AIDS: No Hx Splenectomy or Spleen Trauma: No Other PMH: "respiratory disease from smoking", hep C, CVA , "mild heart attack" at the time of stroke, arthritis, PTSD, BIPOLAR, hx heroin use and carotid aneurysm, anxiety - Social History Smoking Status: Current some day smoker Constitutional: Initial Vital Signs Temperature (C) 36.7 C 12/02/17 21:48 Heart Rate 85 12/02/17 21:48 Respiratory Rate 18 12/02/17 21:48 Blood Pressure 121/92 H 12/02/17 21:48 O2 Sat (%) 92 12/02/17 21:48 O2 Delivery Mode Room Air Allergies/Adverse Reactions: penicillin V potassium [From Pen-Vee K] Allergy (Mild, Verified 12/02/17 21:44) GI chlorpromazine HCl [From Thorazine] Allergy (Unknown, Verified 12/02/17 21:44) haloperidol [From Haldol] Allergy (Verified 12/02/17 21:44) haloperidol lactate [From Haldol] Allergy (Verified 12/02/17 21:44) Penicillins Allergy (Verified 12/02/17 21:44) Home Medications: Medication Instructions Recorded Glucosamine 10/16/16 traMADol 10/16/16 Clonazepam 10/28/16 Seroquel 10/28/16 Ibuprofen [Motrin (*)] 600 mg PO Q6 #15 tab 11/09/16 Medical Decision Making Differential Diagnosis: 57-year-old male with multiple medical problems presents with bilateral knee pain which has been present chronically, no longer improved with Tylenol No. 3 which he is receiving from his primary care physician. He feels that NSAIDs do not help him. He has no concerning features for infection such as septic joint. He has no recent trauma, thus I doubt fracture. He asks for referral to methadone Clinic which I am not sure is appropriate currently. He is also feeling slightly nauseated with a normal abdominal exam. I have offered him labs, x-rays, and monitoring here in the emergency department , however he requests just Maalox and to be discharged with information for case management. I will provide him with this. Differential diagnosis includes chronic pain related to knee osteoarthritis, knee effusion, less likely septic joint. - Data Points Medications Given: Discontinued Medications Al Hydroxide/Mg Hydroxide (Maalox Susp) 30 ml PO EDNOW ONE Stop: 12/02/17 22:13 Last Admin: 12/02/17 22:15 Dose: 30 ml Departure - Departure Disposition: Home, Routine, Self-Care Clinical Impression: Knee pain, bilateral, Nausea Condition: Good Instructions: Knee Pain (ED) Additional Instructions: Please return to the emergency department if your worse in any way. I recommend that you follow up with your primary care doctor for information for methadone clinic if you feel that will be helpful to you. Referrals: ROSLYN CONDON [Other] - As per Instructions
--- NOTE | 2017-12-03 13:08 | ASMTCMCOM ---
CM Note CM Note Notes: Received a CM Consult order request to follow-up w/pt regarding methadone clinic information. Followed up w/[facility] and spoke w/Tala and discussed pt's ED visit and interested in methadone clinic. Tala states patient hasn't been seen there for more than a year. Tala will send PRASAD Andino [facility] Outreach RN, a request to keep an eye for the patient in the community and assist w/follow-up. Date Signed: 12/03/2017 01:08 PM Electronically Signed By:Jenny Biswas RN
== END 2017-12-02 22:19 | disposition home or self-care (01) ==
DX: M25.561 Pain in right knee (principal); M25.562 Pain in left knee; R11.0 Nausea

== ENCOUNTER 2017-12-07 20:44 | Emergency (ER) | payer OTHER, MEDICAID ==
--- NOTE | 2017-12-07 21:52 | EDPHY ---
H & P Stated Complaint: Meth and RX use Time Seen by Provider: 12/07/17 21:49 HPI/ROS: Chief Complaint: Possible overdose HPI: Patient brought in for possible polysubstance abuse. Patient admits to taking 2 Xanax tonight. Denies any alcohol. Denies any other substance abuse. Denies any recent methamphetamine use. Currently is without complaint and is asking to go home. ROS: 10 systems were reviewed and were negative except those elements noted in the HPI. PMH: Anxiety Social History: Positive smoking, occasional alcohol Family History: non-contributory Physical Exam: Gen: Awake, Alert, No Distress HEENT: Nose: no rhinorrhea Eyes: PERRLA, EOMI Mouth: Moist mucosa Neck: Supple, no JVD Chest: nontender, lungs clear to auscultation Heart: S1, S2 normal, no murmur Abd: Soft, non-tender, no guarding Back: no CVA tenderness, no midline tenderness Ext: no edema, non-tender Skin: no rash Neuro: CN II-XII intact, Sensation grossly intact, Strength 5/5 in bilateral upper and lower extremities - Personal History Current Tetanus Diphtheria and Acellular Pertussis (TDAP): Yes Tetanus Vaccine Date: October 2015 - Medical/Surgical History Hx Asthma: No Hx Chronic Respiratory Disease: Yes Hx Diabetes: No Hx Cardiac Disease: Yes Hx Renal Disease: No Hx Cirrhosis: No Hx Alcoholism: No Hx HIV/AIDS: No Hx Splenectomy or Spleen Trauma: No Other PMH: "respiratory disease from smoking", hep C, CVA , "mild heart attack" at the time of stroke, arthritis, PTSD, BIPOLAR, hx heroin use and carotid aneurysm, anxiety, RX abuse, Meth use - Social History Smoking Status: Current some day smoker Constitutional: Initial Vital Signs Temperature (C) 36.6 C 12/07/17 20:53 Heart Rate 90 12/07/17 20:53 Respiratory Rate 18 12/07/17 20:53 Blood Pressure 121/84 H 12/07/17 20:53 O2 Sat (%) 96 12/07/17 20:53 O2 Delivery Mode Room Air Allergies/Adverse Reactions: penicillin V potassium [From Pen-Vee K] Allergy (Mild, Verified 12/02/17 21:44) GI chlorpromazine HCl [From Thorazine] Allergy (Unknown, Verified 09/05/18 21:44) haloperidol [From Haldol] Allergy (Verified 12/02/17 21:44) haloperidol lactate [From Haldol] Allergy (Verified 12/02/17 21:44) Penicillins Allergy (Verified 12/02/17 21:44) Home Medications: Medication Instructions Recorded Glucosamine 10/16/16 traMADol 10/16/16 Clonazepam 10/28/16 Seroquel 10/28/16 Ibuprofen [Motrin (*)] 600 mg PO Q6 #15 tab 11/09/16 Adderall 10 MG (*) 12/07/17 CODEINE SULFATE 12/07/17 Lorazepam 12/07/17 Xanax 12/07/17 Medical Decision Making ED Course/Re-evaluation: Patient brought in for possible OD. He was acting strangely per EM S. Patient is now awake alert. Admits to taking 2 Xanax tonight. Denies any other ingestions. He is ambulating unassisted emergency department. He will discharge with follow-up as an outpatient. Departure - Departure Disposition: Home, Routine, Self-Care Clinical Impression: Benzodiazepine abuse Condition: Good Instructions: Benzodiazepine Abuse (ED) Additional Instructions: Follow up with primary care physician for any concerns. Referrals: [facility],. [Clinic] - As per Instructions
[2017-12-07 22:02] VITALS: BP 118/74
== END 2017-12-07 22:04 | disposition home or self-care (01) ==
LOC: EDUNIT#
DX: F19.230 Other psychoactive substance dependence with withdrawal, uncomplicated (principal); B19.20 Unspecified viral hepatitis C without hepatic coma; F41.9 Anxiety disorder, unspecified; F17.200 Nicotine dependence, unspecified, uncomplicated

== ENCOUNTER 2018-06-18 17:35 | Emergency (ER) | payer MEDICAID, OTHER ==
[2018-06-18 17:43] VITALS: BP 149/82
[2018-06-18] MEDS ORDERED: IBUPROFEN 600 MG TAB PO ONE (17:48)
--- NOTE | 2018-06-18 17:50 | EDPHY ---
HPI/HX/ROS/PE/MDM Narrative: CHIEF COMPLAINT: Bilateral knee pain HPI: The patient is a 57-year-old male with a history of homelessness, alcoholism and multiple ER visits to this institution. He was brought to emergency department by ambulance complaining to EMS staff of right arm and right leg pain. On my exam, the patient tells me he only has pain in both knees secondary to arthritis which is been present for many years and which is making it difficult for him to sleep. He is requesting pain medicine and he states he will follow up with his primary physician. He denies trauma. REVIEW OF SYSTEMS: Aside from elements discussed in the HPI, a comprehensive 10-point review of systems was reviewed and is negative. PMH:[] SOCIAL HISTORY: History of alcohol abuse PHYSICAL EXAM: General:Patient is alert, in no acute distress. Obviously intoxicated - smells of alcohol. ENT:Eyes are normal to inspection. ENT inspection normal. Neck: Large bulbous mass present in right neck - patient states this is chronic aneurysm which is unchanged. Respiratory:No respiratory distress. Breath sounds normal bilaterally. Cardiovascular: Regular rate and rhythm. Strong peripheral pulses. Normal cap refill. Abdomen:The abdomen is nontender to palpation. There are no peritoneal signs. There are normal bowel sounds. Back: Normal to inspection. No tenderness to palpation. Skin: Normal color. No rash. Warm and dry. Extremities: Normal appearance. Full range of motion. Neuro: Oriented x3. Normal motor function. Normal sensory function. MDM: This patient presents with chronic bilateral knee pain for several years. He is here for pain medicine and denies other complaints. I see no sign of stroke , ACS or trauma. He will be treated with ibuprofen and discharged. - Data Points Medications Given: Discontinued Medications Ibuprofen (Motrin) 600 mg PO EDNOW ONE Stop: 06/18/18 17:49 Last Admin: 06/18/18 17:55 Dose: 600 mg General Initial Vital Signs: Initial Vital Signs Temperature (C) 36.9 C 06/18/18 17:41 Heart Rate 99 06/18/18 17:41 Respiratory Rate 16 06/18/18 17:41 Blood Pressure 149/82 H 06/18/18 17:41 O2 Sat (%) 93 06/18/18 17:41 O2 Delivery Mode Room Air Allergies/Adverse Reactions: penicillin V potassium [From Pen-Vee K] Allergy (Mild, Verified 12/02/17 21:44) GI chlorpromazine HCl [From Thorazine] Allergy (Unknown, Verified 12/02/17 21:44) haloperidol [From Haldol] Allergy (Verified 12/02/17 21:44) haloperidol lactate [From Haldol] Allergy (Verified 12/02/17 21:44) Penicillins Allergy (Verified 12/02/17 21:44) Home Medications: Medication Instructions Recorded Glucosamine 10/16/16 traMADol 10/16/16 Clonazepam 10/28/16 Seroquel 10/28/16 Ibuprofen [Motrin (*)] 600 mg PO Q6 #15 tab 11/09/16 Adderall 10 MG (*) 12/07/17 CODEINE SULFATE 12/07/17 Lorazepam 12/07/17 Xanax 12/07/17 Departure - Departure Disposition: Home, Routine, Self-Care Clinical Impression: Osteoarthritis Condition: Good Instructions: Additional Information Referrals: NONE *PRIMARY CARE P,. [Primary Care Provider] - As per Instructions
== END 2018-06-18 18:03 | disposition home or self-care (01) ==
LOC: EDUNIT#
DX: M17.0 Bilateral primary osteoarthritis of knee (principal); Z59.0 Homelessness

== ENCOUNTER 2018-06-19 14:04 | Emergency (ER) | payer SELFPAY ==
[2018-06-19] MEDS ORDERED: IBUPROFEN 600 MG TAB PO ONE (14:23)
[2018-06-19] MEDS ORDERED: ACETAMINOPHEN 500 MG TAB PO ONE (14:23)
--- NOTE | 2018-06-19 14:23 | EDPHY ---
H & P Time Seen by Provider: 06/19/18 14:17 HPI/ROS: CHIEF COMPLAINT: I can't walk because my legs hurt HISTORY OF PRESENT ILLNESS: The patient took a taxi to the ER and walked into triage stating that he could not walk. He has chronic bilateral knee pain from arthritis, is requesting clonazepam and tramadol. Denies fever or any new injury or trauma or hip or ankle or foot symptoms. No skin changes on the knee, no fevers or chills. REVIEW OF SYSTEMS: Eye: no change in vision ENT: no sore throat Cardiac: no chest pain or syncope Pulmonary: no cough or SOB Abdomen: no vomiting, diarrhea, abdominal pain Musculoskeletal: HPI Skin: no rash Neuro: no headache Constitutional: no fever : no urinary symptoms A comprehensive 10 point review of systems is otherwise negative aside from elements mentioned in the history of present illness. PAST MEDICAL HISTORY: Includes bipolar, hepatitis-C, arthritis, anxiety Social history: Tobacco smoker General Appearance: Alert and conversant, cooperative. Eyes: No scleral icterus. ENT, Mouth: Normal mucous membranes. Respiratory: Normal respiratory effort, breath sounds equal, lungs are clear to auscultation. Cardiovascular: Regular rate and rhythm. Gastrointestinal: Abdomen is soft and non tender. Neurological: Alert, face symmetric, normal motor and sensory in extremities. Skin: Warm and dry, no rashes. Musculoskeletal: Patient does not have ecchymosis or redness or warmth on either knee. No joint effusion. Normal range of motion actively and passively. Both knees are stable to varus and valgus stress with negative Zhao's. Compartments soft in thighs and lower leg, normal range of motion of hips knees and ankles. Psychiatric: Not agitated. Emergency Department course/MDM: Patient is unlikely to have septic joint, cellulitis, fracture, DVT, other vascular problem, or other acute problem with his knee. He is treated with Tylenol and ibuprofen and referred back to his primary care physician for his chronic pain from this chronic problem. He is ambulatory out of the emergency department. Smoking Status: Current some day smoker Constitutional: Initial Vital Signs Temperature (C) 36.5 C 06/19/18 14:06 Heart Rate 81 06/19/18 14:06 Respiratory Rate 18 06/19/18 14:06 Blood Pressure 121/79 H 06/19/18 14:06 O2 Sat (%) 98 06/19/18 14:06 O2 Delivery Mode Room Air Allergies/Adverse Reactions: penicillin V potassium [From Pen-Vee K] Allergy (Mild, Verified 12/02/17 21:44) GI chlorpromazine HCl [From Thorazine] Allergy (Unknown, Verified 12/02/17 21:44) haloperidol [From Haldol] Allergy (Verified 12/02/17 21:44) haloperidol lactate [From Haldol] Allergy (Verified 12/02/17 21:44) Penicillins Allergy (Verified 12/02/17 21:44) Home Medications: Medication Instructions Recorded Glucosamine 10/16/16 traMADol 10/16/16 Clonazepam 10/28/16 Seroquel 10/28/16 Ibuprofen [Motrin (*)] 600 mg PO Q6 #15 tab 11/09/16 Adderall 10 MG (*) 12/07/17 CODEINE SULFATE 12/07/17 Lorazepam 12/07/17 Xanax 12/07/17 Medical Decision Making - Data Points Medications Given: Discontinued Medications Acetaminophen (Tylenol) 1,000 mg PO EDNOW ONE Stop: 06/19/18 14:24 Last Admin: 06/19/18 14:30 Dose: 1,000 mg Ibuprofen (Motrin) 600 mg PO EDNOW ONE Stop: 06/19/18 14:24 Last Admin: 06/19/18 14:30 Dose: 600 mg Departure - Departure Disposition: Home, Routine, Self-Care Clinical Impression: Knee pain, bilateral Condition: Good Instructions: Osteoarthritis (ED) Referrals: Dr. Leroy Weber [Other] - As per Instructions
[2018-06-19 14:40] VITALS: BP 135/78
== END 2018-06-19 14:41 | disposition home or self-care (01) ==
DX: M25.561 Pain in right knee (principal); M25.562 Pain in left knee

== ENCOUNTER 2018-06-19 21:53 | Emergency (ER) | payer SELFPAY ==
[2018-06-19 21:58] VITALS: BP 118/77
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
[2018-06-19] MEDS ORDERED: IBUPROFEN 600 MG TAB PO ONE (22:11)
== END 2018-06-19 22:36 | disposition home or self-care (01) ==
DX: M25.561 Pain in right knee (principal); M25.562 Pain in left knee; Z59.0 Homelessness

== ENCOUNTER 2018-07-08 08:17 | Emergency (ER) | payer SELFPAY ==
[2018-07-08] MEDS ORDERED: ACETAMINOPHEN 325 MG TAB PO ONE (08:23)
--- NOTE | 2018-07-08 08:23 | EDPHY ---
HPI/HX/ROS/PE/MDM Narrative: CHIEF COMPLAINT: Bilateral toe pain HPI: The patient is a 57-year-old male who is homeless and well-known to the emergency department secondary to fever knee the visits. He has an official status of narcotic caution secondary to previous drug-seeking behavior. He arrives via ambulance complaining of bilateral great toe pain secondary to walking a lot. He was seen in the ED numerous times last month for similar symptoms. REVIEW OF SYSTEMS: Aside from elements discussed in the HPI, a comprehensive 10-point review of systems was reviewed and is negative. PMH:Homelessness, mental health, chronic neck aneurysm SOCIAL HISTORY:Homeless PHYSICAL EXAM: General:Patient is alert, in no acute distress. Patient quite twitchy. ENT:Eyes are normal to inspection. ENT inspection normal. Neck: Large bulbous mass noted in right neck which is unchanged from prior visits. Respiratory:No respiratory distress. Breath sounds normal bilaterally. Extremities: Mild abrasions are noted to bilateral medial aspects of great toes. No discharge or erythema. No signs of trauma. Neuro: Normal motor function. Normal sensory function. MDM: This patient presents via EMS with bilateral toe abrasions. I suspect he is largely malignering. I have performed a detailed history and physical and patient is stable. General Time Seen by Provider: 07/08/18 08:20 Allergies/Adverse Reactions: penicillin V potassium [From Pen-Vee K] Allergy (Mild, Verified 06/19/18 21:58) GI chlorpromazine HCl [From Thorazine] Allergy (Unknown, Verified 06/19/18 21:58) haloperidol [From Haldol] Allergy (Verified 06/19/18 21:58) haloperidol lactate [From Haldol] Allergy (Verified 06/19/18 21:58) Penicillins Allergy (Verified 06/19/18 21:58) Home Medications: Medication Instructions Recorded Glucosamine 10/16/16 traMADol 10/16/16 Clonazepam 10/28/16 Seroquel 10/28/16 Ibuprofen [Motrin (*)] 600 mg PO Q6 #15 tab 11/09/16 Adderall 10 MG (*) 12/07/17 CODEINE SULFATE 12/07/17 Lorazepam 12/07/17 Xanax 12/07/17 Departure - Departure Disposition: Home, Routine, Self-Care Clinical Impression: Toe abrasion Condition: Good Instructions: Additional Information Additional Instructions: Follow-up with [facility] within 72 hr. Return to the emergency department for fever or discharge from wounds. Referrals: Patient,NotPresent [Primary Care Provider] - As per Instructions
[2018-07-08 08:31] VITALS: BP 131/87
== END 2018-07-08 08:46 | disposition home or self-care (01) ==
LOC: EDUNIT#
DX: S90.411A Abrasion, right great toe, initial encounter (principal); S90.412A Abrasion, left great toe, initial encounter; Y93.01 Activity, walking, marching and hiking; Z59.0 Homelessness

== ENCOUNTER 2018-07-09 23:52 | Emergency (ER) | payer SELFPAY ==
[2018-07-09 23:56] VITALS: BP 117/88
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
== END 2018-07-10 00:16 | disposition home or self-care (01) ==
LOC: EDUNIT#
DX: G89.29 Other chronic pain (principal); Z59.0 Homelessness